=== PATIENT | male | born 1945 | race African-American/Black ===

== ENCOUNTER → 2016-05-30 | Outpatient (CLI) | payer MEDICARE, OTHER ==
[2014-03-29 11:00] VITALS: BP 113/76
[~2016-05-30] MED LIST: AMLO1TAB14 PO; AMLO5TAB2 PO; ASPI81TA44 PO; DILT180C2 PO; DONE5TAB7 PO; EZET1TAB4 PO; HYDR-2868 PO; HYDR12.53 PO; IBUP-1027 PO; MEMA10TA PO; MULT-246 PO; NAPR220C PO; QUET25TA5 PO
--- NOTE | 2016-05-30 12:09 | RAD ---
Exam performed: CT chest contrast. History: Pneumonia. Poor historian. Date of service: 05/30/16. Comparison: None available Technique: Contiguous helical acquisitions are obtained through the chest without IV contrast. Sagittal and coronal reformatted images are obtained and reviewed. Findings: Structures at the thoracic inlet including both lobes of thyroid gland appear normal. Lack of IV contrast limits evaluation of neck and intrathoracic great vessels, however they appear grossly normal in course and caliber. Ectatic ascending aorta without definite aneurysm. Atheromatous calcification of the aorta and coronary arteries. Heart size is within limits of normal without pericardial effusion. No dominant mediastinal or hilar adenopathy seen. Calcified pretracheal lymph node is identified. Interrogation of lungs demonstrates streaky bibasilar opacities. Small area of ground glass opacity seen in the left lower lobe. No pleural effusion or pneumothorax. Limited evaluation of the upper abdominal structures is unremarkable. Spondylotic changes and multilevel disc degenerative changes are noted. Impression: Streaky bibasilar opacities with an area of groundglass opacity in the left lower lobe likely early infiltrates. PQRS Compliance Statement: One or more of the following individualized dose reduction techniques were utilized for this examination: 1. Automated exposure control 2. Adjustment of the mA and/or kV according to patient size 3. Use of iterative reconstruction technique
== END | disposition home or self-care (01) ==
LOC: CT 10:24
PROVIDERS: ATTEND Internal Medicine
DX: J18.9 Pneumonia, unspecified organism (principal)
CPT/HCPCS: 71250

== ENCOUNTER 2016-06-06 13:07 | Inpatient (IN) | payer MEDICARE, OTHER ==
[~2016-06-06] VITALS: Ht 154.9 cm; Wt 41.3 kg
[2016-06-06 16:20] VITALS: BP 104/74
[2016-06-06] MEDS ORDERED: ATOR10TA PO (17:13)
[2016-06-06] MEDS ORDERED: DIVA250T4 PO (17:13)
[2016-06-06] MEDS ORDERED: MEMA28CA PO (17:13)
[2016-06-06] MEDS ORDERED: DONE10TA34 PO (17:13)
[2016-06-06] MEDS ORDERED: DIVA500T2 PO (17:13)
[2016-06-06] MEDS ORDERED: CLON0.1T PO (17:15)
[2016-06-06] MEDS ORDERED: MAGN400O4 PO (17:15)
[2016-06-06] MEDS ORDERED: CHLO1LIQ MC (17:15)
[2016-06-06] MEDS ORDERED: ACET325T21 PO (17:15)
[2016-06-06] MEDS ORDERED: INFLUENZA VAX SCREEN BY RX. MC ONE (17:30)
[2016-06-06 19:35] VITALS: BP 114/76
[2016-06-06 23:37] VITALS: BP 121/82
[2016-06-07 03:31] VITALS: BP 116/72
[2016-06-07 07:56] VITALS: BP 124/87
[2016-06-07] MEDS: IV NORMAL SALINE 1000ML BAG 1,000 ML IV SCH ×2 (09:40→21:35)
[2016-06-07] MEDS: IPRATRPIUM/ALBUTEROL 0.5/2.5MG 3 ML NEBU. NEB SCH ×4 (09:45→19:38)
--- NOTE | 2016-06-07 09:53 | PDOC ---
Provider Note Provider Note Pt seen .H&P dictated. #[id number] MARILU OGMEZ MD Jun 07, 2016 09:53
[2016-06-07] MEDS ORDERED: PIPERACILLIN/TAZOBACTAM 2.25 GM in IV NORMAL SALINE 50ML 50 ML IV SCH (10:00)
--- NOTE | 2016-06-07 10:14 | EKG ---
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
--- NOTE | 2016-06-07 10:17 | HP ---
ADMIT DATE: 06/06/2016 PATIENT LOCATION: 65 REASON FOR ADMISSION TO THE HOSPITAL: Healthcare-associated pneumonia. HISTORY OF PRESENT ILLNESS: The patient is a 71-year-old male patient who has a history of schizophrenia, has been in the [place] [facility]. Lately has been declining. He had a fever with infiltrates in the lung, was treated with 2 courses of antibiotic, first with Levaquin, second with doxycycline in the last one month. In spite of that patient has been declining, has been in bed and not eating, not improving and patient was finally admitted to the hospital for further investigation and treatment. CT scan of the chest done shows bilateral lung infiltrates, could be silent aspiration, could be BOOP, the patient was admitted for further investigation and treatment. PAST MEDICAL HISTORY: The patient was admitted in Mar 2014 history of dementia, alcohol-induced schizophrenia, arthritis, hypertension, hyperlipidemia, COPD, he also had history of dysphagia in the past, was seen by speech. PAST SURGICAL HISTORY: Tracheostomy, tube feeding in the past which was removed. tracheostomy was removed too. ALLERGIES: No known drug allergies. MEDICATIONS AT HOME: The patient is on Namenda, Lipitor, Seroquel, Aricept, diltiazem aspirin, amlodipine, ibuprofen. SOCIAL HISTORY: History of heavy smoker in the past, heavy drinker in the past, has been declining, losing weight, developed skin breakdown and has been ambulating with a walker couple of months ago, but is bedridden now in wheelchair level. FAMILY HISTORY: Unremarkable. REVIEW OF SYMPTOMS: As mentioned declining, was treated with 2 courses of antibiotics for pneumonia without much improvement and was admitted for investigation. PHYSICAL EXAMINATION: GENERAL: Looks older than his age. VITAL SIGNS: Temperature 97, pulse 116, respirations 18, blood pressure 104/74, 98% on room air. HEENT: Head is atraumatic. Pupils equal. Oral cavity, few teeth present. NECK: Supple. Scar of previous tracheostomy, which is closed. CARDIOVASCULAR: S1, S2. LUNGS: Diminished breath sounds, few crackles at the bases. ABDOMEN: Soft, wasting of the muscles, had an old scar of PEG tube, which was removed. EXTERNAL GENITALIA: No Mcelroy. RECTAL: Deferred. EXTREMITIES: No calf tenderness, no edema. The patient has a skin breakdown over the sacral area with some eschar which is 1 inch in size. NEUROLOGIC: The patient does not talk much. He opens eyes. FINAL IMPRESSION: 1. Healthcare-associated pneumonia. 2. The patient was treated with 2 courses of antibiotics without much improvement. 3. General decline. 4. History of smoking, alcoholism in the past. 5. History of schizophrenia. 6. Alzheimer dementia 7. Protein-calorie malnutrition. 8. Skin breakdown of the sacral area. PLAN: At this time, was admit to the hospital, hydrate with IV fluids. Blood cultures and sputum cultures, IV antibiotics, vancomycin and Zosyn. The patient had a CT of the chest couple of days ago, will have pulmonary consult. We will discuss and see how the patient's condition improves. Prognosis is guarded. MARILU GOMEZ MD DR: JIMMY/nts JOB#: [id number] / [id number] [facility] MARILU GOMEZ MD MTD
[2016-06-07] MEDS: POTASSIUM CL 20MEQ D5-0.45NACL 1,000 ML IV SCH ×2 (10:25→19:40)
[2016-06-07] MEDS: ENOXAPARIN 40 MG/0.4 ML DISP.SYRIN. SQ SCH (10:26)
[2016-06-07] MEDS ORDERED: VANCOMYCIN 1 GM in IV NORMAL SALINE 250ML 250 ML IV ONE (10:30)
--- NOTE | 2016-06-07 11:15 | RAD ---
Indication difficulty breathing. Evaluate for pneumonia. A single view of the chest was obtained. Comparison is made to an examination 03/27/2014. Heart size is unchanged. Somewhat tortuous thoracic aorta is noted appearing similar. An acute parenchymal infiltrate in either lung is not seen. Significant pleural fluid is not present. There is no pneumothorax. Degenerative changes about the shoulders are noted. Deformities, likely chronic and secondary to old fractures, noted associated with right ribs IMPRESSION: No acute finding apparent in the chest
[2016-06-07 11:16] LABS: INR 1.2 (0.8-1.1); PROTHROMBIN TIME PATIENT 14.7 SEC (11.7-14.0)
[2016-06-07 11:19] VITALS: BP 131/90
--- NOTE | 2016-06-07 14:29 | PDOC ---
Provider Note Provider Note dictated JASON MCMAHAN MD Jun 07, 2016 14:29
[2016-06-07 14:45] VITALS: BP 115/77
--- NOTE | 2016-06-07 16:01 | CONS ---
DATE OF CONSULTATION: 06/07/2016 ATTENDING PHYSICIAN: Dr. Morris. REASON FOR CONSULTATION: Pneumonia. HISTORY OF PRESENT ILLNESS: The patient is a 71-year-old elderly male who has dementia. He does not communicate well. The patient has been hospitalized for pneumonia. I have been asked to see him for further evaluation. I am unable to obtain much history from the patient. I have reviewed patient's charts. The patient has been declining steadily. He has schizophrenia. [facility] However, he has been brought in to the hospital. His CT chest done on 05/30/2016 was reviewed by me. There were very faint basilar ground glass opacities, which may be related to inflammation. Chest x-ray; however, done today does not show any acute infiltrates. He has been started on antibiotics and I have been asked to see him for further evaluation. PAST MEDICAL HISTORY: Significant for history of schizophrenia, dementia, arthritis, hypertension, hyperlipidemia, COPD, and dysphagia. PAST SURGICAL HISTORY: Tracheostomy in the past, tube feeding and tracheostomy was removed in the past. ALLERGIES: None. CURRENT MEDICATIONS: Reviewed as listed in the MRAD. PHYSICAL EXAMINATION: VITAL SIGNS: Stable, afebrile, pulse ox 97% room air. NECK: Supple. LUNGS: Diminished breath sounds. CARDIOVASCULAR: Regular rate and rhythm. ABDOMEN: Soft. EXTREMITIES: With no pitting edema. LABORATORY DATA: Reviewed. White cell count is not available. INR 1.2. IMPRESSION: 1. Mild faint ground glass opacities at the bases may be related to residual pneumonia. There are no definite consolidation seen on the CT and recent chest x-ray is clear. 2. Schizophrenia with declining functional status. 3. Protein-calorie malnutrition. 4. Dementia. RECOMMENDATIONS: 1. Deescalate antibiotics soon. 2. Discussed advanced directives. 3. Nutritional status needs to be addressed. 4. P.r.n. bronchodilators. 5. We will follow as needed. JASON MCMAHAN MD DR: ALY/guera JOB#: [id number] / [id number]
--- NOTE | 2016-06-07 17:00 | PDOC2 ---
PALLIATIVE CARE Palliative Care Note Palliative Care Consult requested by Dr. Morris to address goals of care Diagnosis; Healthcare-associated pneumonia.; schizophrenia, dementia, p/c malnutrition; skin breakdown, decline. Patient does not make his own decisions. Has never been or have children. Spoke with Jackelyn Sanchez, niece. She requested to speak to his sister Carina at [phone]. Meeting planned tomorrow at 1300 to discuss goals of care. REINALDO SONI Jun 07, 2016 17:00
[2016-06-07 17:17] LABS: CALCIUM 8.7 mg/dL (8.5-10.1); CREATININE 1.1 mg/dL (0.7-1.3); GFR 79.8; POTASSIUM 4.2 mmol/L (3.5-5.1)
[2016-06-07 17:25] LABS: ALBUMIN 2.1 g/dL (3.4-5.0); ALBUMIN/GLOBULIN RATIO 0.5 (1.0-1.7); TOTAL BILIRUBIN 0.5 mg/dL (0.2-1.0); TOTAL PROTEIN 6.2 g/dL (6.4-8.2)
[2016-06-07 17:59] LABS: BILIRUBIN,URINE NEGATIVE (NEG); GLUCOSE,URINE NEGATIVE (NEG); NITRITE,URINE NEGATIVE (NEG); PH,URINE 7.5; PROTEIN,URINE NEGATIVE (NEG-TRACE)
[2016-06-07 18:10] LABS: BACTERIA,URINE 0 /HPF (0-FEW); RBC,URINE 0 /HPF (0-2); SQUAMOUS EPITHELIAL CELL,UR OCC /LPF
[2016-06-07] MEDS: PIPERACILLIN/TAZOBACTAM 3.375 GM in IV NORMAL SALINE 50ML 50 ML IV SCH ×2 (19:26→23:46)
[2016-06-07 20:26] VITALS: BP 119/79
[2016-06-07 23:37] VITALS: BP 121/73
[2016-06-08 03:23] VITALS: BP 122/72
[2016-06-08] MEDS: POTASSIUM CL 20MEQ D5-0.45NACL 1,000 ML IV SCH (05:40)
[2016-06-08] MEDS: PIPERACILLIN/TAZOBACTAM 3.375 GM in IV NORMAL SALINE 50ML 50 ML IV SCH ×3 (05:47→17:57)
[2016-06-08 06:10] LABS: BASO % 0 % (0-3); EOS % 1 % (0-3); HEMOGLOBIN 9.5 g/dL (13.0-17.5); LYMPH # 1.1 x10^3/uL (1.0-4.8); LYMPH % 20 % (24-48); MEAN CORPUSCULAR HEMOGLOBIN 29 pg (25-35); MEAN CORPUSCULAR HGB CONC 33 g/dL (31-37); MEAN CORPUSCULAR VOLUME 90 fL (79-100); MONO % 9 % (0-9); NEUT % 69 % (31-73); PLATELET COUNT 94 x10^3/uL (140-400); RED BLOOD COUNT 3.24 x10^6/uL (4.30-5.70); RED CELL DISTRIBUTION WIDTH 14.5 % (11.5-14.5); WHITE BLOOD COUNT 5.6 x10^3/uL (4.0-11.0)
[2016-06-08 06:13] LABS: CALCIUM 8.2 mg/dL (8.5-10.1); CREATININE 1.2 mg/dL (0.7-1.3); GFR 72.2; POTASSIUM 4.1 mmol/L (3.5-5.1)
[2016-06-08] MEDS: IPRATRPIUM/ALBUTEROL 0.5/2.5MG 3 ML NEBU. NEB SCH ×4 (07:28→21:28)
[2016-06-08 07:36] VITALS: BP 133/65
[2016-06-08] MEDS ORDERED: FLU VACC QUAD 2016-17 (36MOS+)/PF 0.5 ML SYRINGE. VAX IM ONE (09:00)
--- NOTE | 2016-06-08 09:00 | PDOC ---
PULMONARY PROGRESS NOTES Subjective no soa Vitals Vital Signs Date Time Temp Pulse Resp B/P Pulse Ox O2 Delivery O2 Flow Rate FiO2 06/08/16 07:36 97.5 59 20 133/65 99 Room Air 97.5 General: Alert Lungs: Clear Cardiovascular: S1 Abdomen: Soft Neuro Exam: Alert Extremities: No Edema Skin: Warm Labs Laboratory Tests Test 06/06/16 16:30 06/07/16 10:50 06/07/16 17:50 06/08/16 05:40 Nasal Screen MRSA (PCR) Negative (Negative) Prothrombin Time 14.7SEC (11.7-14.0) Prothromb Time International Ratio 1.2 (0.8-1.1) Sodium Level 147mmol/L (136-145) 148mmol/L (136-145) Potassium Level 4.2mmol/L (3.5-5.1) 4.1mmol/L (3.5-5.1) Chloride Level 111mmol/L (98-107) 116mmol/L (98-107) Carbon Dioxide Level 28mmol/L (21-32) 27mmol/L (21-32) Anion Gap 8 (6-14) 5 (6-14) Blood Urea Nitrogen 17mg/dL (8-26) 20mg/dL (8-26) Creatinine 1.1mg/dL (0.7-1.3) 1.2mg/dL (0.7-1.3) Estimated GFR (Cockcroft-Gault) 79.8 72.2 BUN/Creatinine Ratio 15 (6-20) Glucose Level 77mg/dL (70-99) 89mg/dL (70-99) Calcium Level 8.7mg/dL (8.5-10.1) 8.2mg/dL (8.5-10.1) Total Bilirubin 0.5mg/dL (0.2-1.0) Aspartate Amino Transf (AST/SGOT) 27U/L (15-37) Alanine Aminotransferase (ALT/SGPT) 37U/L (16-63) Alkaline Phosphatase 62U/L (46-116) Total Protein 6.2g/dL (6.4-8.2) Albumin 2.1g/dL (3.4-5.0) Albumin/Globulin Ratio 0.5 (1.0-1.7) Urine Color Yellow Urine Clarity Clear Urine pH 7.5 Urine Specific [place] 1.015 Urine Protein Negativemg/dL (NEG-TRACE) Urine Glucose (UA) Negativemg/dL (NEG) Urine Ketones (Stick) Negativemg/dL (NEG) Urine Blood Negative (NEG) Urine Nitrite Negative (NEG) Urine Bilirubin Negative (NEG) Urine Urobilinogen Dipstick 1.0mg/dL (0.2 mg/dL) Urine Leukocyte Esterase Moderate (NEG) Urine RBC 0/HPF (0-2) Urine WBC 5-10/HPF (0-4) Urine Squamous Epithelial Cells Occ/LPF Urine Amorphous Sediment Present/HPF Urine Bacteria 0/HPF (0-FEW) Urine Mucus Slight/LPF White Blood Count 5.6x10^3/uL (4.0-11.0) Red Blood Count 3.24x10^6/uL (4.30-5.70) Hemoglobin 9.5g/dL (13.0-17.5) Hematocrit 29.0% (39.0-53.0) Mean Corpuscular Volume 90fL (79-100) Mean Corpuscular Hemoglobin 29pg (25-35) Mean Corpuscular Hemoglobin Concent 33g/dL (31-37) Red Cell Distribution Width 14.5% (11.5-14.5) Platelet Count 94x10^3/uL (140-400) Neutrophils (%) (Auto) 69% (31-73) Lymphocytes (%) (Auto) 20% (24-48) Monocytes (%) (Auto) 9% (0-9) Eosinophils (%) (Auto) 1% (0-3) Basophils (%) (Auto) 0% (0-3) Neutrophils # (Auto) 3.8x10^3uL (1.8-7.7) Lymphocytes # (Auto) 1.1x10^3/uL (1.0-4.8) Monocytes # (Auto) 0.5x10^3/uL (0.0-1.1) Eosinophils # (Auto) 0.1x10^3/uL (0.0-0.7) Basophils # (Auto) 0.0x10^3/uL (0.0-0.2) Thyroid Stimulating Hormone (TSH) 1.631uIU/mL (0.358-3.74) Laboratory Tests Test 06/07/16 10:50 06/07/16 17:50 06/08/16 05:40 Prothrombin Time 14.7SEC (11.7-14.0) Prothromb Time International Ratio 1.2 (0.8-1.1) Sodium Level 147mmol/L (136-145) 148mmol/L (136-145) Potassium Level 4.2mmol/L (3.5-5.1) 4.1mmol/L (3.5-5.1) Chloride Level 111mmol/L (98-107) 116mmol/L (98-107) Carbon Dioxide Level 28mmol/L (21-32) 27mmol/L (21-32) Anion Gap 8 (6-14) 5 (6-14) Blood Urea Nitrogen 17mg/dL (8-26) 20mg/dL (8-26) Creatinine 1.1mg/dL (0.7-1.3) 1.2mg/dL (0.7-1.3) Estimated GFR (Cockcroft-Gault) 79.8 72.2 BUN/Creatinine Ratio 15 (6-20) Glucose Level 77mg/dL (70-99) 89mg/dL (70-99) Calcium Level 8.7mg/dL (8.5-10.1) 8.2mg/dL (8.5-10.1) Total Bilirubin 0.5mg/dL (0.2-1.0) Aspartate Amino Transf (AST/SGOT) 27U/L (15-37) Alanine Aminotransferase (ALT/SGPT) 37U/L (16-63) Alkaline Phosphatase 62U/L (46-116) Total Protein 6.2g/dL (6.4-8.2) Albumin 2.1g/dL (3.4-5.0) Albumin/Globulin Ratio 0.5 (1.0-1.7) Urine Color Yellow Urine Clarity Clear Urine pH 7.5 Urine Specific [place] 1.015 Urine Protein Negativemg/dL (NEG-TRACE) Urine Glucose (UA) Negativemg/dL (NEG) Urine Ketones (Stick) Negativemg/dL (NEG) Urine Blood Negative (NEG) Urine Nitrite Negative (NEG) Urine Bilirubin Negative (NEG) Urine Urobilinogen Dipstick 1.0mg/dL (0.2 mg/dL) Urine Leukocyte Esterase Moderate (NEG) Urine RBC 0/HPF (0-2) Urine WBC 5-10/HPF (0-4) Urine Squamous Epithelial Cells Occ/LPF Urine Amorphous Sediment Present/HPF Urine Bacteria 0/HPF (0-FEW) Urine Mucus Slight/LPF White Blood Count 5.6x10^3/uL (4.0-11.0) Red Blood Count 3.24x10^6/uL (4.30-5.70) Hemoglobin 9.5g/dL (13.0-17.5) Hematocrit 29.0% (39.0-53.0) Mean Corpuscular Volume 90fL (79-100) Mean Corpuscular Hemoglobin 29pg (25-35) Mean Corpuscular Hemoglobin Concent 33g/dL (31-37) Red Cell Distribution Width 14.5% (11.5-14.5) Platelet Count 94x10^3/uL (140-400) Neutrophils (%) (Auto) 69% (31-73) Lymphocytes (%) (Auto) 20% (24-48) Monocytes (%) (Auto) 9% (0-9) Eosinophils (%) (Auto) 1% (0-3) Basophils (%) (Auto) 0% (0-3) Neutrophils # (Auto) 3.8x10^3uL (1.8-7.7) Lymphocytes # (Auto) 1.1x10^3/uL (1.0-4.8) Monocytes # (Auto) 0.5x10^3/uL (0.0-1.1) Eosinophils # (Auto) 0.1x10^3/uL (0.0-0.7) Basophils # (Auto) 0.0x10^3/uL (0.0-0.2) Thyroid Stimulating Hormone (TSH) 1.631uIU/mL (0.358-3.74) Medications Active Scripts Medications Dose Route/Sig Days Date Category Chlorhexidine Flavor (Chlorhexidine) 1 Ml Liquid 1 Ml 06/06/16 Reported Milk Of Magnesia (Magnesium Hydroxide) 400 Mg/5 Ml Oral.susp 800 Mg PO PRN PRN 06/06/16 Reported Acetaminophen 325 Mg Tablet 650 Mg PO PRN Q6HRS PRN 06/06/16 Reported Clonidine Hcl 0.1 Mg Tablet 0.1 Mg PO DAILY 06/06/16 Reported Depakote (Divalproex Sodium) 250 Mg Tablet.dr 250 Mg PO QHS 06/06/16 Reported Depakote (Divalproex Sodium) 500 Mg Tablet.dr 500 Mg PO DAILY 06/06/16 Reported Aricept (Donepezil Hcl) 10 Mg Tablet 1 Tab PO DAILY 06/06/16 Reported Namenda Xr (Memantine Hcl) 28 Mg Cap.spr.24 28 Mg PO DAILY 06/06/16 Reported Lipitor (Atorvastatin Calcium) 10 Mg Tablet 1 Tab PO QHS 06/06/16 Reported Children's Aspirin (Aspirin) 81 Mg Tab.chew 81 Mg PO DAILY 09/11/13 Reported Multi-Vitamin Daily (Multivitamin) 1 Each Tablet 1 Each PO DAILY 09/11/13 Reported Impression . 1. Mild faint ground glass opacities at the bases may be related to residual pneumonia. There are no definite consolidation seen on the CT and recent chest x-ray is clear. 2. Schizophrenia with declining functional status. 3. Protein-calorie malnutrition. 4. Dementia. Plan . 1. Deescalate antibiotics soon. 2. Discuss advanced directives./ palliative care consulted 3. Nutritional status needs to be addressed. 4. P.r.n. bronchodilators. 5. d/w Dr Morris will see JASON Cooper MD Jun 08, 2016 08:59
[2016-06-08] MEDS ORDERED: BARIUM SULFATE 40% 148 GM PWD PO ONE (09:45)
--- NOTE | 2016-06-08 10:00 | PDOC ---
PROGRESS NOTES Subjective Subjective sleepy this am Objective Objective Vital Signs Date Time Temp Pulse Resp B/P Pulse Ox O2 Delivery O2 Flow Rate FiO2 06/08/16 07:36 97.5 59 20 133/65 99 Room Air 97.5 Intake and Output 06/08/16 07:00 Intake Total 0 ml Balance 0 ml Intake Oral 0 ml # Voids 4 Physical Exam Abdomen: Normal bowel sounds, Soft Heart: Regular rate, Normal S1, Normal S2 General: No acute distress Lungs: Normal air movement MUSCULOSKELETAL: No deformity, Other Neck: Supple Skin: Other (wounds stage 3 sacral area) Diagnosis Problem List Problems Medical Problems: (1) HCAP (healthcare-associated pneumonia) Status: Acute Assessment Assessment Problems Medical Problems: (1) HCAP (healthcare-associated pneumonia) Status: Acute FINAL IMPRESSION: 1. Healthcare-associated pneumonia. 2. The patient was treated with 2 courses of antibiotics without much improvement. 3. General decline. 4. History of smoking, alcoholism in the past. 5. History of schizophrenia. 6. Alzheimer dementia 7. Protein-calorie malnutrition. 8. Skin breakdown of the sacral area. PLAN: spoke with dr Tello , pulmonary . speech consulted for swallowing going for swallow study today palliative team consult, meeting today. labs noted. At this time, was admit to the hospital, hydrate with IV fluids. Blood cultures and sputum cultures, IV antibiotics, vancomycin and Zosyn. The patient had a CT of the chest couple of days ago, will have pulmonary consult. We will discuss and see how the patient's condition improves. Prognosis is guarded. Problems: Plan Plan of Care Problems Medical Problems: (1) HCAP (healthcare-associated pneumonia) Status: Acute Comment Review of Relevant I have reviewed the following items grisel (where applicable) has been applied. Labs Laboratory Tests Test 06/07/16 10:50 06/07/16 17:50 06/08/16 05:40 Prothrombin Time 14.7SEC (11.7-14.0) Prothromb Time International Ratio 1.2 (0.8-1.1) Sodium Level 147mmol/L (136-145) 148mmol/L (136-145) Potassium Level 4.2mmol/L (3.5-5.1) 4.1mmol/L (3.5-5.1) Chloride Level 111mmol/L (98-107) 116mmol/L (98-107) Carbon Dioxide Level 28mmol/L (21-32) 27mmol/L (21-32) Anion Gap 8 (6-14) 5 (6-14) Blood Urea Nitrogen 17mg/dL (8-26) 20mg/dL (8-26) Creatinine 1.1mg/dL (0.7-1.3) 1.2mg/dL (0.7-1.3) Estimated GFR (Cockcroft-Gault) 79.8 72.2 BUN/Creatinine Ratio 15 (6-20) Glucose Level 77mg/dL (70-99) 89mg/dL (70-99) Calcium Level 8.7mg/dL (8.5-10.1) 8.2mg/dL (8.5-10.1) Total Bilirubin 0.5mg/dL (0.2-1.0) Aspartate Amino Transf (AST/SGOT) 27U/L (15-37) Alanine Aminotransferase (ALT/SGPT) 37U/L (16-63) Alkaline Phosphatase 62U/L (46-116) Total Protein 6.2g/dL (6.4-8.2) Albumin 2.1g/dL (3.4-5.0) Albumin/Globulin Ratio 0.5 (1.0-1.7) Urine Color Yellow Urine Clarity Clear Urine pH 7.5 Urine Specific [place] 1.015 Urine Protein Negativemg/dL (NEG-TRACE) Urine Glucose (UA) Negativemg/dL (NEG) Urine Ketones (Stick) Negativemg/dL (NEG) Urine Blood Negative (NEG) Urine Nitrite Negative (NEG) Urine Bilirubin Negative (NEG) Urine Urobilinogen Dipstick 1.0mg/dL (0.2 mg/dL) Urine Leukocyte Esterase Moderate (NEG) Urine RBC 0/HPF (0-2) Urine WBC 5-10/HPF (0-4) Urine Squamous Epithelial Cells Occ/LPF Urine Amorphous Sediment Present/HPF Urine Bacteria 0/HPF (0-FEW) Urine Mucus Slight/LPF White Blood Count 5.6x10^3/uL (4.0-11.0) Red Blood Count 3.24x10^6/uL (4.30-5.70) Hemoglobin 9.5g/dL (13.0-17.5) Hematocrit 29.0% (39.0-53.0) Mean Corpuscular Volume 90fL (79-100) Mean Corpuscular Hemoglobin 29pg (25-35) Mean Corpuscular Hemoglobin Concent 33g/dL (31-37) Red Cell Distribution Width 14.5% (11.5-14.5) Platelet Count 94x10^3/uL (140-400) Neutrophils (%) (Auto) 69% (31-73) Lymphocytes (%) (Auto) 20% (24-48) Monocytes (%) (Auto) 9% (0-9) Eosinophils (%) (Auto) 1% (0-3) Basophils (%) (Auto) 0% (0-3) Neutrophils # (Auto) 3.8x10^3uL (1.8-7.7) Lymphocytes # (Auto) 1.1x10^3/uL (1.0-4.8) Monocytes # (Auto) 0.5x10^3/uL (0.0-1.1) Eosinophils # (Auto) 0.1x10^3/uL (0.0-0.7) Basophils # (Auto) 0.0x10^3/uL (0.0-0.2) Thyroid Stimulating Hormone (TSH) 1.631uIU/mL (0.358-3.74) Medications Current Medications Barium Sulfate (Varibar Thin Liquid) 148 gm 1X ONCE PO ; Start 06/08/16 at 09:45 ; Stop 06/08/16 at 09:46; Status DC Enoxaparin Sodium 40 mg 40 mg Q24H SQ Last administered on 06/07/16 10:26; Start 06/07/16 at 10:00 Influenza Virus Vaccine Quadrival 0.5 ml 0.5 ml ONCE ONCE VAX IM ; Start at 09:00; Stop 06/08/16 at 09:01; Status DC Piperacillin Sod/ Tazobactam Sod 3.375 gm/Sodium Chloride 50 ml @ 100 mls/hr Q6HRS IV Last administered on 06/08/16 05:47; Start 06/07/16 at 18:00 Piperacillin Sod/ Tazobactam Sod/ Sodium Chloride (Zosyn/Iv Sodium Chloride 0.9 % 50ml) 50 ml @ 100 mls/hr Q6HRS IV Last administered on 06/07/16 10:41; Start 06/07/16 at 10:00; Stop 06/07/16 at 17:44; Status DC Sodium Chloride (Iv Sodium Chloride 0.9% 1000ml Bag) 1,000 ml @ 100 mls/hr Q10H IV ; Start 06/08/16 at 07:00 Vancomycin HCl 1 gm/Sodium Chloride 250 ml @ 166.667 mls/hr 1X ONCE IV Last administered on 06/07/16 13:33; Start 06/07/16 at 10:30; Stop 06/07/16 at 11:59; Status DC Vitals/I & O Vital Sign - Last 24 Hours 06/07/16 06/07/16 06/07/16 06/07/16 11:00 11:19 11:32 14:34 Temp 97.9 97.9 Pulse 56 Resp 18 B/P 131/90 Pulse Ox 97 100 O2 Delivery Room Air Room Air Room Air Room Air 06/07/16 06/07/16 06/07/16 06/07/16 14:45 15:52 19:38 20:00 Temp 97.9 97.9 Pulse 76 Resp 18 B/P 115/77 Pulse Ox 99 O2 Delivery Room Air Room Air Room Air Room Air 06/07/16 06/07/16 06/08/16 06/08/16 20:26 23:37 03:23 07:29 Temp 97.9 98.2 97.7 97.9 98.2 97.7 Pulse 79 76 71 Resp 20 20 20 B/P 119/79 121/73 122/72 Pulse Ox 98 100 99 100 O2 Delivery Room Air Room Air Room Air Room Air 06/08/16 07:36 Temp 97.5 97.5 Pulse 59 Resp 20 B/P 133/65 Pulse Ox 99 O2 Delivery Room Air Intake and Output 06/07/16 06/07/16 06/08/16 15:00 23:00 07:00 Intake Total 0 ml 0 ml Balance 0 ml 0 ml MARILU GOMEZ MD Jun 08, 2016 10:00
[2016-06-08 11:58] VITALS: BP 129/70
[2016-06-08] MEDS: IV NORMAL SALINE 1000ML BAG 1,000 ML IV SCH ×2 (12:10→17:56)
[2016-06-08] MEDS: ENOXAPARIN 40 MG/0.4 ML DISP.SYRIN. SQ SCH (12:13)
--- NOTE | 2016-06-08 13:58 | RAD ---
Indication signs and symptoms of aspiration. With a member of the Department of speech pathology swallowing was evaluated. No spot images were obtained. Fluoroscopy time associated with the examination was 1.3 minutes There was some delay in the oral phase of swallowing but apart from that the examination was essentially unremarkable. No significant flash penetration was seen. There was no significant residual and no aspiration was seen. See speech pathology notes for additional details. IMPRESSION: Essentially unremarkable swallowing
--- NOTE | 2016-06-08 14:40 | PDOC2 ---
PALLIATIVE CARE Palliative Care Note Palliative Care Patient more alert today. Saying few words Met with his sister Carina.([phone]) patient has 2 brothers and 2 sisters. Reviewed medical condition. pneumonia, general decline, dysphagia, skin breakdown Carina shared her concern for progressive decline. Discussed Code Status; Requests DNR/DNI Understands that without this attempt he likely would . Discussed options for care. She would like foods that are safest consistency for him to eat. No feeding tube Discussed Hospice. She has no preference. SW will assist in arrangements. Rosangela; Has never attended [facility] Work: Many jobs but had difficulty maintaining employment because of alcohol consumption. Plan: Detention with Hospice. Dysphagia Diet I with Honey Thickened Liquids per speech rec. DNR/DNI Outside the Hospital form completed. REINALDO SONI Jun 08, 2016 14:40
[2016-06-08 14:58] VITALS: BP 120/75
[2016-06-08 19:20] VITALS: BP 123/73
[2016-06-08 23:31] VITALS: BP 117/75
[2016-06-09] MEDS: PIPERACILLIN/TAZOBACTAM 3.375 GM in IV NORMAL SALINE 50ML 50 ML IV SCH ×2 (00:03→04:57)
[2016-06-09 03:20] VITALS: BP 148/79
[2016-06-09] MEDS: IV NORMAL SALINE 1000ML BAG 1,000 ML IV SCH (04:57)
[2016-06-09 07:00] VITALS: BP 160/67
[2016-06-09] MEDS: IPRATRPIUM/ALBUTEROL 0.5/2.5MG 3 ML NEBU. NEB SCH ×3 (07:43→15:57)
[2016-06-09] MEDS: ENOXAPARIN 40 MG/0.4 ML DISP.SYRIN. SQ SCH (09:21)
--- NOTE | 2016-06-09 09:44 | PDOC ---
PROGRESS NOTES Subjective Subjective no complaints, more awake today Objective Objective Vital Signs Date Time Temp Pulse Resp B/P Pulse Ox O2 Delivery O2 Flow Rate FiO2 06/09/16 07:43 99 Room Air 06/09/16 07:00 97.7 99 18 160/67 97.7 Intake and Output 06/09/16 07:00 Intake Total 0 ml Balance 0 ml Intake Oral 0 ml # Voids 8 Physical Exam Abdomen: Normal bowel sounds, Soft Heart: Regular rate, Normal S1, Normal S2 General: No acute distress Lungs: Normal air movement MUSCULOSKELETAL: No deformity, Other Neck: Supple Skin: Other (wounds stage 3 sacral area) Diagnosis Problem List Problems Medical Problems: (1) HCAP (healthcare-associated pneumonia) Status: Acute Assessment Assessment Problems Medical Problems: (1) HCAP (healthcare-associated pneumonia) Status: Acute FINAL IMPRESSION: 1. Healthcare-associated pneumonia.chronic scaring in lungs 2. The patient was treated with 2 courses of antibiotics without much improvement. 3. General decline. 4. History of smoking, alcoholism in the past. 5. History of schizophrenia. 6. Alzheimer dementia 7. Protein-calorie malnutrition. 8. Skin breakdown of the sacral area. PLAN: appreciate palliative consult. DNR, d/c back to [facility] with hospice. swallow study , no vinicio aspiration. dysphagia 1 diet with honey thickened . no feeding tube. poor prognosis. spoke with dr Tello , pulmonary , no need to continue antibiotics. speech consulted for swallowing going for swallow study today palliative team consult, meeting today. labs noted. Problems: Plan Plan of Care Problems Medical Problems: (1) HCAP (healthcare-associated pneumonia) Status: Acute Comment Review of Relevant I have reviewed the following items girsel (where applicable) has been applied. Labs Microbiology 06/07/16 Blood Culture - Preliminary, Resulted NO GROWTH AFTER 1 DAY 06/07/16 Urine Culture - Preliminary, Resulted 06/07/16 Urine Culture Result 1 (NUZHAT) - Preliminary, Resulted Medications Current Medications Barium Sulfate (Varibar Thin Liquid) 148 gm 1X ONCE PO Last administered on t 09:45; Start 06/08/16 at 09:45; Stop 06/08/16 at 09:46; Status DC Vitals/I & O Vital Sign - Last 24 Hours 06/08/16 06/08/16 06/08/16 06/08/16 11:09 11:58 14:58 17:01 Temp 97.9 97.5 97.9 97.5 Pulse 62 61 Resp 20 20 B/P 129/70 120/75 Pulse Ox 100 99 O2 Delivery Room Air Room Air Room Air Room Air 06/08/16 06/08/16 06/08/16 06/08/16 19:20 20:00 21:27 23:31 Temp 97.9 97.9 97.9 97.9 Pulse 75 68 Resp 20 20 B/P 123/73 117/75 Pulse Ox 99 99 99 O2 Delivery Room Air Room Air Room Air Room Air 06/09/16 06/09/16 06/09/16 03:20 07:00 07:43 Temp 97.7 97.7 97.7 97.7 Pulse 58 99 Resp 20 18 B/P 148/79 160/67 Pulse Ox 100 99 99 O2 Delivery Room Air Room Air Room Air Intake and Output 06/08/16 06/08/16 06/09/16 15:00 23:00 07:00 Intake Total 0 ml Balance 0 ml MARILU GOMEZ MD Jun 09, 2016 09:44
[2016-06-09 11:00] VITALS: BP 163/74
[2016-06-09 15:00] VITALS: BP 167/80
== END 2016-06-09 16:15 | DRG 177 ==
LOC: 6 SOUTH 15:43
PROVIDERS: ADMIT Internal Medicine; ATTEND Internal Medicine
DX: J69.0 Pneumonitis due to inhalation of food and vomit (principal); E43 Unspecified severe protein-calorie malnutrition; J44.0 Chronic obstructive pulmonary disease with (acute) lower respiratory infection; Z68.1 Body mass index [BMI] 19.9 or less, adult; E78.5 Hyperlipidemia, unspecified; Z51.5 Encounter for palliative care; Z66 Do not resuscitate; R53.81 Other malaise; F02.80 Dementia in other diseases classified elsewhere, unspecified severity, without behavioral disturbance, psychotic disturbance, mood disturbance, and anxiety; G30.9 Alzheimer's disease, unspecified; I10 Essential (primary) hypertension; F20.9 Schizophrenia, unspecified; F10.20 Alcohol dependence, uncomplicated; M19.90 Unspecified osteoarthritis, unspecified site; R13.10 Dysphagia, unspecified; Y95 Nosocomial condition; Z87.891 Personal history of nicotine dependence; Z93.0 Tracheostomy status
CPT/HCPCS: 36415; 71010; 74230; 80048; 80053; 81001; 84443; 85027; 85610; 87040; 87086; 87641; 90686; 93005; 94640; 94760; J1650; J2543; J3370; J7030; J7050; J7620; 92610; 92611

== ENCOUNTER 2017-12-28 22:49 | Inpatient (IN) | payer MEDICARE, OTHER ==
[~2017-12-28] VITALS: Ht 170.2 cm; Wt 57.2 kg
[~2017-12-28 22:49] MED LIST changes: +ACET325T21 PO; -AMLO5TAB2 PO; +AMLO5TAB7 PO; -ASPI81TA44 PO; +ASPI81TA59 PO; +ATOR10TA PO; +CHLO1LIQ MC; +CLON0.1T PO; +DIVA250T4 PO; +DIVA500T2 PO; +DONE10TA61 PO; +EZET1TAB30 PO; -EZET1TAB4 PO; +MAGN400O7 PO; +MEMA28CA PO
--- NOTE | 2017-12-28 23:09 | PHYS DOC ---
Past Medical History Past Medical History: Arthritis, Dementia, High Cholesterol, Hypertension, Other Additional Past Medical Histor: weakness Past Surgical History: Other Additional Past Surgical Histo: feeding tube reversed pe family Alcohol Use: None Drug Use: None Adult General HPI HPI Patient is a 72-year-old [place] male who arrives in the emergency department via EMS from his nursing facility, secondary to a low-grade temperature and tachycardia which was noticed today. He has a history of dementia and his mental status is at his baseline. The patient denies any pain. He denies any headache, chest pain, cough, abdominal pain, and had been no reports of nausea and vomiting. There have been no reports of altered mental status. He is oriented to person only, which reportedly is his baseline. There are no alleviating or exacerbating factors to his symptoms. Review of Systems Review of Systems Constitutional: Reports fevers, fevers reported. Eyes: Denies change in visual acuity, redness, or eye pain [] HENT: Denies nasal congestion or sore throat [] Respiratory: Denies cough or shortness of breath [] Cardiovascular: The patient denies any shortness of breath, chest pain, palpitations, or orthopnea [] GI: Denies abdominal pain, nausea, vomiting, bloody stools or diarrhea [] : Denies dysuria or hematuria [] Musculoskeletal: Denies back pain or joint pain [] Integument: Denies rash or skin lesions [] Neurologic: Denies headache, focal weakness or sensory changes [] Endocrine: Denies polyuria or polydipsia [] All other systems were reviewed and found to be within normal limits, except as documented in this note, Although the history is somewhat limited secondary to patient's underlying dementia. Current Medications Current Medications Current Medications Medications (Trade) Dose Ordered Sig/Renata Start Time Stop Time Status Last Admin Dose Admin Acetaminophen (Tylenol) 1,000 mg 1X ONCE 12/28/17 23:30 12/28/17 23:31 DC 12/29/17 00:23 1,000 MG Ceftriaxone Sodium 50 ml @ 100 mls/hr 1X ONCE 12/28/17 23:30 12/28/17 23:59 DC 12/28/17 23:30 100 MLS/HR Sodium Chloride 1,000 ml @ 1,000 mls/hr 1X ONCE 12/29/17 00:30 12/29/17 01:29 UNV Allergies Allergies Allergies Coded Allergies Type Severity Reaction Last Updated Verified No Known Drug Allergies 09/10/13 No Physical Exam Physical Exam PHYSICAL EXAM: CONSTITUTIONAL: Well developed, well nourished HEAD: normocephalic, atraumatic EENT: PERRL, EOMI. Conjunctivae normal color, sclerae non-icteric; moist mucous membranes. NECK: Supple, non-tender; no meningismus. LUNGS: Lungs CTA, breathing even and unlabored. Normal air movement. HEART: Regular tachycardia, no murmur CHEST: No deformity; non-tender ABDOMEN: The abdomen is soft, and non-tender, no masses or bruits. EXTREM: Normal ROM; no deformity, no calf tenderness. Normal pulses palpable in all extremities. There is no pedal edema. SKIN: No rash; no diaphoresis. The skin of the perineum is intact without any evidence of decubitus ulcers. NEURO: Alert; patient is oriented to person, but disoriented to place and time. He is able to follow commands.; CN's grossly intact; strength grossly intact without focal deficit. BACK: No CVA TTP. Current Patient Data Vital Signs Vital Signs Date Time Temp Pulse Resp B/P (MAP) Pulse Ox O2 Delivery O2 Flow Rate FiO2 12/28/17 23:27 99.1 135 26 167/117 (134) 98 Room Air 99.1 Lab Values Laboratory Tests Test 12/28/17 23:27 12/28/17 23:45 White Blood Count 15.9 x10^3/uL (4.0-11.0) H Red Blood Count 4.81 x10^6/uL (4.30-5.70) Hemoglobin 13.8 g/dL (13.0-17.5) Hematocrit 40.8 % (39.0-53.0) Mean Corpuscular Volume 85 fL (79-100) Mean Corpuscular Hemoglobin 29 pg (25-35) Mean Corpuscular Hemoglobin Concent 34 g/dL (31-37) Red Cell Distribution Width 13.8 % (11.5-14.5) Platelet Count 250 x10^3/uL (140-400) Neutrophils (%) (Auto) 86 % (31-73) H Lymphocytes (%) (Auto) 8 % (24-48) L Monocytes (%) (Auto) 5 % (0-9) Eosinophils (%) (Auto) 1 % (0-3) Basophils (%) (Auto) 1 % (0-3) Neutrophils # (Auto) 13.7 x10^3uL (1.8-7.7) H Lymphocytes # (Auto) 1.3 x10^3/uL (1.0-4.8) Monocytes # (Auto) 0.7 x10^3/uL (0.0-1.1) Eosinophils # (Auto) 0.2 x10^3/uL (0.0-0.7) Basophils # (Auto) 0.1 x10^3/uL (0.0-0.2) Segmented Neutrophils % 83 % (35-66) H Band Neutrophils % 2 % (0-9) Lymphocytes % 9 % (24-48) L Monocytes % 6 % (0-10) Toxic Granulation Slight Platelet Estimate Adequate (ADEQUATE) Sodium Level 138 mmol/L (136-145) Potassium Level 4.0 mmol/L (3.5-5.1) Chloride Level 104 mmol/L (98-107) Carbon Dioxide Level 28 mmol/L (21-32) Anion Gap 6 (6-14) Blood Urea Nitrogen 14 mg/dL (8-26) Creatinine 1.4 mg/dL (0.7-1.3) H Estimated GFR (Cockcroft-Gault) 60.3 BUN/Creatinine Ratio 10 (6-20) Glucose Level 163 mg/dL (70-99) H Lactic Acid Level 3.0 mmol/L (0.4-2.0) H Calcium Level 9.2 mg/dL (8.5-10.1) Magnesium Level 1.8 mg/dL (1.8-2.4) Total Bilirubin 0.3 mg/dL (0.2-1.0) Aspartate Amino Transferase (AST) 19 U/L (15-37) Alanine Aminotransferase (ALT) 23 U/L (16-63) Alkaline Phosphatase 77 U/L (46-116) Creatine Kinase 59 U/L (39-308) Creatine Kinase MB (Mass) < 0.5 ng/mL (0.0-3.6) Creatine Kinase MB Relative Index % (0-4) Troponin I Quantitative < 0.017 ng/mL (0.000-0.055) ON-Iid-B-Type Natriuretic Peptide 339 pg/mL (0-124) H Total Protein 8.0 g/dL (6.4-8.2) Albumin 3.4 g/dL (3.4-5.0) Albumin/Globulin Ratio 0.7 (1.0-1.7) L Lipase 151 U/L (73-393) Thyroid Stimulating Hormone (TSH) 0.647 uIU/mL (0.358-3.74) Free Thyroxine 1.15 ng/dL (0.76-1.46) Valproic Acid Level mcg/mL (50-100) Valproic Acid Last Dose Date Unk Valproic Acid Last Dose Time Unk Urine Collection Type U cath Urine Color Yellow Urine Clarity Cloudy Urine pH 5.5 Urine Specific [place] 1.020 Urine Protein Negative mg/dL (NEG-TRACE) Urine Glucose (UA) Negative mg/dL (NEG) Urine Ketones (Stick) Trace mg/dL (NEG) Urine Blood Small (NEG) Urine Nitrite Negative (NEG) Urine Bilirubin Negative (NEG) Urine Urobilinogen Dipstick 1.0 mg/dL (0.2 mg/dL) Urine Leukocyte Esterase Large (NEG) Urine RBC 3-5 /HPF (0-2) Urine WBC 20-40 /HPF (0-4) Urine Squamous Epithelial Cells None /LPF Urine Bacteria Few /HPF (0-FEW) Urine Mucus Slight /LPF Laboratory Tests 12/28/17 23:27 Laboratory Tests 12/28/17 23:27 EKG EKG [Sinus tachycardia at a rate of 124 beats for minute, normal axis, normal intervals, poor anterior R progression with nonspecific ST/T changes without acute ischemic changes noted.] Radiology/Procedures Radiology/Procedures [PROCEDURE: PORTABLE CHEST 1V PORTABLE CHEST 1V Clinical Indication: soa Comparison: AP chest, June 07, 2016. Findings: Ectatic and tortuous thoracic aorta. Cardiac size upper limits of normal. Lungs are clear. There is no pneumothorax. No pleural effusion is appreciated. There are multiple old right rib fractures. There is degenerative arthropathy of the bilateral shoulders. IMPRESSION: No acute cardiopulmonary process. ] Course & Med Decision Making Course & Med Decision Making Pertinent Labs and Imaging studies reviewed. (See chart for details) [12:20 AM: The patient's condition remains stable. I spoke with the hospitalist, who accepted the patient to the hospital for further evaluation and treatment. HR improved to 110's. BP remains normal. ] Dragon Disclaimer Dragon Disclaimer This electronic medical record was generated, in whole or in part, using a voice recognition dictation system. Departure Departure Impression: Primary Impression: UTI (urinary tract infection) Additional Impression: Sepsis Disposition: 09 ADMITTED INPATIENT Admitting Physician: Other (Yoshi) Condition: STABLE Referrals: MOHAN VALERIO (PCP) Problem Qualifiers CASSI BORJAS MD Dec 28, 2017 23:09
[2017-12-28] MEDS ORDERED: ACETAMINOPHEN 500 MG TABLET PO ONE (23:30)
[2017-12-28] MEDS ORDERED: IV NORMAL SALINE 1000ML BAG 1,000 ML IV SCH (23:30)
[2017-12-28 23:41] LABS: BASO # 0.1 x10^3/uL (0.0-0.2); BASO % 1 % (0-3); EOS # 0.2 x10^3/uL (0.0-0.7); EOS % 1 % (0-3); HEMATOCRIT 40.8 % (39.0-53.0); HEMOGLOBIN 13.8 g/dL (13.0-17.5); LYMPH # 1.3 x10^3/uL (1.0-4.8); LYMPH % 8 % (24-48); MEAN CORPUSCULAR HEMOGLOBIN 29 pg (25-35); MEAN CORPUSCULAR HGB CONC 34 g/dL (31-37); MEAN CORPUSCULAR VOLUME 85 fL (79-100); MONO # 0.7 x10^3/uL (0.0-1.1); MONO % 5 % (0-9); NEUT # 13.7 x10^3uL (1.8-7.7); NEUT % 86 % (31-73); PLATELET COUNT 250 x10^3/uL (140-400); RED BLOOD COUNT 4.81 x10^6/uL (4.30-5.70); RED CELL DISTRIBUTION WIDTH 13.8 % (11.5-14.5); WHITE BLOOD COUNT 15.9 x10^3/uL (4.0-11.0)
--- NOTE | 2017-12-28 23:50 | RAD ---
PORTABLE CHEST 1V Clinical Indication: soa Comparison: AP chest, June 07, 2016. Findings: Ectatic and tortuous thoracic aorta. Cardiac size upper limits of normal. Lungs are clear. There is no pneumothorax. No pleural effusion is appreciated. There are multiple old right rib fractures. There is degenerative arthropathy of the bilateral shoulders. IMPRESSION: No acute cardiopulmonary process. Electronically signed by: Everett Beatty MD (12/28/2017 11:47 PM) [id number]
[2017-12-28 23:55] LABS: ANION GAP 6 (6-14); BLOOD UREA NITROGEN 14 mg/dL (8-26); BUN/CREATININE RATIO 10 (6-20); CALCIUM 9.2 mg/dL (8.5-10.1); CARBON DIOXIDE 28 mmol/L (21-32); CHLORIDE 104 mmol/L (98-107); CREATININE 1.4 mg/dL (0.7-1.3); GFR 60.3; GLUCOSE 163 mg/dL (70-99); SODIUM 138 mmol/L (136-145)
[2017-12-28 23:59] LABS: BILIRUBIN,URINE NEGATIVE (NEG); CLARITY,URINE CLOUDY; COLOR,URINE YELLOW; NITRITE,URINE NEGATIVE (NEG); PH,URINE 5.5; PROTEIN,URINE NEGATIVE (NEG-TRACE)
[2017-12-29 00:04] LABS: BACTERIA,URINE FEW /HPF (0-FEW); WBC,URINE 20-40 /HPF (0-4)
[2017-12-29 00:09] LABS: ALBUMIN 3.4 g/dL (3.4-5.0); ALBUMIN/GLOBULIN RATIO 0.7 (1.0-1.7); ALK PHOS 77 U/L (46-116); ALT (SGPT) 23 U/L (16-63); AST (SGOT) 19 U/L (15-37); LIPASE 151 U/L (73-393); MAGNESIUM 1.8 mg/dL (1.8-2.4); TOTAL BILIRUBIN 0.3 mg/dL (0.2-1.0)
[2017-12-29 00:10] LABS: FREE T4 1.15 ng/dL (0.76-1.46); THYROID STIM HORMONE (TSH) 0.647 uIU/mL (0.358-3.74)
[2017-12-29 00:12] LABS: CREATINE KINASE 59 U/L (39-308)
[2017-12-29 00:17] LABS: % BANDS 2 % (0-9); % LYMPHS 9 % (24-48); % MONOS 6 % (0-10); % SEGS 83 % (35-66); PLT ESTIMATE ADEQUATE (ADEQUATE); TOXIC GRANULATION SLIGHT
[2017-12-29] MEDS ORDERED: IV NORMAL SALINE 1000ML BAG 1,000 ML IV ONE ×2 (01:00)
[2017-12-29] MEDS ORDERED: IV RINGERS,LACTATED 1000ML 1,000 ML IV ONE (02:00)
[2017-12-29 03:00] VITALS: BP 137/75
--- NOTE | 2017-12-29 06:19 | EKG ---
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
[2017-12-29 11:00] VITALS: BP 166/91
[2017-12-29] MEDS: AMINO AC 3%/ELECTROLYTE/GLYCER 1,000 ML IV SCH ×2 (11:30→20:54)
[2017-12-29 15:00] VITALS: BP 160/82
--- NOTE | 2017-12-29 15:43 | HP ---
ADMIT DATE: 12/29/2017 CHIEF COMPLAINT: Fever and tachycardia. HISTORY OF PRESENT ILLNESS: The patient is a pleasant elderly male who has dementia. He has developed fever and tachycardia at his facility. He was brought in by ambulance. While here in the ER, we have noted that he has UTI with probable sepsis. I have discussed the case with the ER physician. We are going to go ahead, admit the patient and give him IV Rocephin, IV procalamine. PAST MEDICAL HISTORY: Advanced dementia, hyperlipidemia, hypertension, weakness, previous PEG tube that was reversed. ALLERGIES: None. FAMILY HISTORY: Hypertension. SOCIAL HISTORY: I believe he resides at a facility. He does not drink, smoke or take drugs. MEDICATIONS: Reviewed, please refer to the MRAD. REVIEW OF SYSTEMS: Unable to obtain. The patient is too confused. PHYSICAL EXAMINATION: VITAL SIGNS: Temperature afebrile, pulse 92, respirations 18, blood pressure 144/90. GENERAL: He is sleeping. He awakens but then goes back to sleep. The only word, he says to me, is no. HEART: Normal S1, S2. LUNGS: Clear. ABDOMEN: Soft, slightly tender. EXTREMITIES: Trace edema. SKIN: No rash. ENDOCRINE: No thyromegaly. LYMPHATICS: No cervical nodes. HEMATOPOIETIC: No bruising. LABORATORY DATA: Sodium 138, potassium 4, chloride 104, bicarbonate 28, BUN 14, creatinine 1.4, glucose 163. White count 16. Urinalysis shows 20-40 white cells, few bacteria and leukocyte esterase. ASSESSMENT AND PLAN: Urinary tract infection with sepsis, leukocytosis, and metabolic encephalopathy. The patient has been admitted. We will give him IV Rocephin, IV procalamine. We will try to resume his home meds. If he does not perk up in the next day or two, we may need to get palliative care on board. LONG-TERM PROGNOSIS: Guarded at best. ZIGGY GARCIA DO DR: IESHA/guera JOB#: [id number] / [id number]
[2017-12-29 19:00] VITALS: BP 158/84
[2017-12-29] MEDS: cefTRIAXone IV Push 1 GM VIAL. IVP SCH (20:54)
[2017-12-29] MEDS: LACTOBACILLUS RHAMNOSUS GG 1 CAPSULE. PO SCH (20:55)
[2017-12-29 23:00] VITALS: BP_SYST 154; BP_SYST 156; BP_DIAS 45; BP_DIAS 83
[2017-12-30] VITALS (7 sets, daily range): BP systolic 109–173; BP diastolic 57–103
[2017-12-30 04:43] LABS: BASO # 0.1 x10^3/uL (0.0-0.2); BASO % 1 % (0-3); EOS # 0.8 x10^3/uL (0.0-0.7); EOS % 7 % (0-3); HEMATOCRIT 31.9 % (39.0-53.0); HEMOGLOBIN 10.9 g/dL (13.0-17.5); LYMPH # 2.1 x10^3/uL (1.0-4.8); LYMPH % 18 % (24-48); MEAN CORPUSCULAR HEMOGLOBIN 29 pg (25-35); MEAN CORPUSCULAR HGB CONC 34 g/dL (31-37); MEAN CORPUSCULAR VOLUME 85 fL (79-100); MONO # 0.6 x10^3/uL (0.0-1.1); MONO % 6 % (0-9); NEUT # 7.9 x10^3uL (1.8-7.7); NEUT % 69 % (31-73); PLATELET COUNT 173 x10^3/uL (140-400); RED BLOOD COUNT 3.77 x10^6/uL (4.30-5.70); RED CELL DISTRIBUTION WIDTH 13.8 % (11.5-14.5); WHITE BLOOD COUNT 11.4 x10^3/uL (4.0-11.0)
[2017-12-30 05:01] LABS: ALBUMIN 2.6 g/dL (3.4-5.0); ALBUMIN/GLOBULIN RATIO 0.7 (1.0-1.7); CALCIUM 8.4 mg/dL (8.5-10.1); CREATININE 1.1 mg/dL (0.7-1.3); GFR 79.6; POTASSIUM 3.6 mmol/L (3.5-5.1); TOTAL BILIRUBIN 0.3 mg/dL (0.2-1.0); TOTAL PROTEIN 6.3 g/dL (6.4-8.2)
[2017-12-30] MEDS: LACTOBACILLUS RHAMNOSUS GG 1 CAPSULE. PO SCH ×2 (09:00→21:25)
--- NOTE | 2017-12-30 12:05 | PDOC ---
PROGRESS NOTES Chief Complaint Chief Complaint UTI w/ sepsis Leukocytosis Metabolic encephalopathy Advanced dementia HLD HTN Weakness Hx PEG tube, was reversed History of Present Illness History of Present Illness Pt seen and examined Dw RN Pt awake and eating Pt pleasant but not communicative Vitals Vitals Vital Signs Date Time Temp Pulse Resp B/P (MAP) Pulse Ox O2 Delivery O2 Flow Rate FiO2 12/30/17 11:00 97.3 101 17 134/93 (107) 95 Room Air 97.3 Physical Exam General: Alert, No acute distress Heart: Regular rate Lungs: Clear Abdomen: Normal bowel sounds, Soft Extremities: No clubbing, No cyanosis Skin: No rashes, No breakdown Labs LABS Laboratory Tests Test 12/30/17 03:50 White Blood Count 11.4 x10^3/uL (4.0-11.0) Red Blood Count 3.77 x10^6/uL (4.30-5.70) Hemoglobin 10.9 g/dL (13.0-17.5) Hematocrit 31.9 % (39.0-53.0) Mean Corpuscular Volume 85 fL (79-100) Mean Corpuscular Hemoglobin 29 pg (25-35) Mean Corpuscular Hemoglobin Concent 34 g/dL (31-37) Red Cell Distribution Width 13.8 % (11.5-14.5) Platelet Count 173 x10^3/uL (140-400) Neutrophils (%) (Auto) 69 % (31-73) Lymphocytes (%) (Auto) 18 % (24-48) Monocytes (%) (Auto) 6 % (0-9) Eosinophils (%) (Auto) 7 % (0-3) Basophils (%) (Auto) 1 % (0-3) Neutrophils # (Auto) 7.9 x10^3uL (1.8-7.7) Lymphocytes # (Auto) 2.1 x10^3/uL (1.0-4.8) Monocytes # (Auto) 0.6 x10^3/uL (0.0-1.1) Eosinophils # (Auto) 0.8 x10^3/uL (0.0-0.7) Basophils # (Auto) 0.1 x10^3/uL (0.0-0.2) Sodium Level 138 mmol/L (136-145) Potassium Level 3.6 mmol/L (3.5-5.1) Chloride Level 106 mmol/L (98-107) Carbon Dioxide Level 25 mmol/L (21-32) Anion Gap 7 (6-14) Blood Urea Nitrogen 11 mg/dL (8-26) Creatinine 1.1 mg/dL (0.7-1.3) Estimated GFR (Cockcroft-Gault) 79.6 BUN/Creatinine Ratio 10 (6-20) Glucose Level 86 mg/dL (70-99) Calcium Level 8.4 mg/dL (8.5-10.1) Total Bilirubin 0.3 mg/dL (0.2-1.0) Aspartate Amino Transf (AST/SGOT) 13 U/L (15-37) Alanine Aminotransferase (ALT/SGPT) 15 U/L (16-63) Alkaline Phosphatase 59 U/L (46-116) Total Protein 6.3 g/dL (6.4-8.2) Albumin 2.6 g/dL (3.4-5.0) Albumin/Globulin Ratio 0.7 (1.0-1.7) Review of Systems Review of Systems Pt non communicative Assessment and Plan Assessmemt and Plan Problems Medical Problems: (1) Sepsis Status: Acute (2) UTI (urinary tract infection) Status: Acute UTI w/ sepsis Leukocytosis Metabolic encephalopathy Advanced dementia HLD HTN Weakness Hx PEG tube, was reversed Plan: Continue PPN Continue Abx PT/OT Home meds Possible [facility] Comment Review of Relevant I have reviewed the following items grisel (where applicable) has been applied. Labs Laboratory Tests Test 12/28/17 23:27 12/28/17 23:45 12/29/17 04:00 12/29/17 06:00 White Blood Count 15.9 x10^3/uL (4.0-11.0) Red Blood Count 4.81 x10^6/uL (4.30-5.70) Hemoglobin 13.8 g/dL (13.0-17.5) Hematocrit 40.8 % (39.0-53.0) Mean Corpuscular Volume 85 fL (79-100) Mean Corpuscular Hemoglobin 29 pg (25-35) Mean Corpuscular Hemoglobin Concent 34 g/dL (31-37) Red Cell Distribution Width 13.8 % (11.5-14.5) Platelet Count 250 x10^3/uL (140-400) Neutrophils (%) (Auto) 86 % (31-73) Lymphocytes (%) (Auto) 8 % (24-48) Monocytes (%) (Auto) 5 % (0-9) Eosinophils (%) (Auto) 1 % (0-3) Basophils (%) (Auto) 1 % (0-3) Neutrophils # (Auto) 13.7 x10^3uL (1.8-7.7) Lymphocytes # (Auto) 1.3 x10^3/uL (1.0-4.8) Monocytes # (Auto) 0.7 x10^3/uL (0.0-1.1) Eosinophils # (Auto) 0.2 x10^3/uL (0.0-0.7) Basophils # (Auto) 0.1 x10^3/uL (0.0-0.2) Segmented Neutrophils % 83 % (35-66) Band Neutrophils % 2 % (0-9) Lymphocytes % 9 % (24-48) Monocytes % 6 % (0-10) Toxic Granulation Slight Platelet Estimate Adequate (ADEQUATE) Sodium Level 138 mmol/L (136-145) Potassium Level 4.0 mmol/L (3.5-5.1) Chloride Level 104 mmol/L (98-107) Carbon Dioxide Level 28 mmol/L (21-32) Anion Gap 6 (6-14) Blood Urea Nitrogen 14 mg/dL (8-26) Creatinine 1.4 mg/dL (0.7-1.3) Estimated GFR (Cockcroft-Gault) 60.3 BUN/Creatinine Ratio 10 (6-20) Glucose Level 163 mg/dL (70-99) Lactic Acid Level 3.0 mmol/L (0.4-2.0) 1.6 mmol/L (0.4-2.0) Calcium Level 9.2 mg/dL (8.5-10.1) Magnesium Level 1.8 mg/dL (1.8-2.4) Total Bilirubin 0.3 mg/dL (0.2-1.0) Aspartate Amino Transf (AST/SGOT) 19 U/L (15-37) Alanine Aminotransferase (ALT/SGPT) 23 U/L (16-63) Alkaline Phosphatase 77 U/L (46-116) Creatine Kinase 59 U/L (39-308) Creatine Kinase MB (Mass) < 0.5 ng/mL (0.0-3.6) Creatine Kinase MB Relative Index % (0-4) Troponin I Quantitative < 0.017 ng/mL (0.000-0.055) PT-Xng-T-Type Natriuretic Peptide 339 pg/mL (0-124) Total Protein 8.0 g/dL (6.4-8.2) Albumin 3.4 g/dL (3.4-5.0) Albumin/Globulin Ratio 0.7 (1.0-1.7) Lipase 151 U/L (73-393) Thyroid Stimulating Hormone (TSH) 0.647 uIU/mL (0.358-3.74) Free Thyroxine 1.15 ng/dL (0.76-1.46) Valproic Acid (Depakene) Level mcg/mL (50-100) Valproic Acid Last Dose Date Unk Valproic Acid Last Dose Time Unk Urine Collection Type U cath Urine Color Yellow Urine Clarity Cloudy Urine pH 5.5 Urine Specific [place] 1.020 Urine Protein Negative mg/dL (NEG-TRACE) Urine Glucose (UA) Negative mg/dL (NEG) Urine Ketones (Stick) Trace mg/dL (NEG) Urine Blood Small (NEG) Urine Nitrite Negative (NEG) Urine Bilirubin Negative (NEG) Urine Urobilinogen Dipstick 1.0 mg/dL (0.2 mg/dL) Urine Leukocyte Esterase Large (NEG) Urine RBC 3-5 /HPF (0-2) Urine WBC 20-40 /HPF (0-4) Urine Squamous Epithelial Cells None /LPF Urine Bacteria Few /HPF (0-FEW) Urine Mucus Slight /LPF Nasal Screen MRSA (PCR) Positive (Negative) Test 12/30/17 03:50 White Blood Count 11.4 x10^3/uL (4.0-11.0) Red Blood Count 3.77 x10^6/uL (4.30-5.70) Hemoglobin 10.9 g/dL (13.0-17.5) Hematocrit 31.9 % (39.0-53.0) Mean Corpuscular Volume 85 fL (79-100) Mean Corpuscular Hemoglobin 29 pg (25-35) Mean Corpuscular Hemoglobin Concent 34 g/dL (31-37) Red Cell Distribution Width 13.8 % (11.5-14.5) Platelet Count 173 x10^3/uL (140-400) Neutrophils (%) (Auto) 69 % (31-73) Lymphocytes (%) (Auto) 18 % (24-48) Monocytes (%) (Auto) 6 % (0-9) Eosinophils (%) (Auto) 7 % (0-3) Basophils (%) (Auto) 1 % (0-3) Neutrophils # (Auto) 7.9 x10^3uL (1.8-7.7) Lymphocytes # (Auto) 2.1 x10^3/uL (1.0-4.8) Monocytes # (Auto) 0.6 x10^3/uL (0.0-1.1) Eosinophils # (Auto) 0.8 x10^3/uL (0.0-0.7) Basophils # (Auto) 0.1 x10^3/uL (0.0-0.2) Sodium Level 138 mmol/L (136-145) Potassium Level 3.6 mmol/L (3.5-5.1) Chloride Level 106 mmol/L (98-107) Carbon Dioxide Level 25 mmol/L (21-32) Anion Gap 7 (6-14) Blood Urea Nitrogen 11 mg/dL (8-26) Creatinine 1.1 mg/dL (0.7-1.3) Estimated GFR (Cockcroft-Gault) 79.6 BUN/Creatinine Ratio 10 (6-20) Glucose Level 86 mg/dL (70-99) Calcium Level 8.4 mg/dL (8.5-10.1) Total Bilirubin 0.3 mg/dL (0.2-1.0) Aspartate Amino Transf (AST/SGOT) 13 U/L (15-37) Alanine Aminotransferase (ALT/SGPT) 15 U/L (16-63) Alkaline Phosphatase 59 U/L (46-116) Total Protein 6.3 g/dL (6.4-8.2) Albumin 2.6 g/dL (3.4-5.0) Albumin/Globulin Ratio 0.7 (1.0-1.7) Laboratory Tests Test 12/30/17 03:50 White Blood Count 11.4 x10^3/uL (4.0-11.0) Red Blood Count 3.77 x10^6/uL (4.30-5.70) Hemoglobin 10.9 g/dL (13.0-17.5) Hematocrit 31.9 % (39.0-53.0) Mean Corpuscular Volume 85 fL (79-100) Mean Corpuscular Hemoglobin 29 pg (25-35) Mean Corpuscular Hemoglobin Concent 34 g/dL (31-37) Red Cell Distribution Width 13.8 % (11.5-14.5) Platelet Count 173 x10^3/uL (140-400) Neutrophils (%) (Auto) 69 % (31-73) Lymphocytes (%) (Auto) 18 % (24-48) Monocytes (%) (Auto) 6 % (0-9) Eosinophils (%) (Auto) 7 % (0-3) Basophils (%) (Auto) 1 % (0-3) Neutrophils # (Auto) 7.9 x10^3uL (1.8-7.7) Lymphocytes # (Auto) 2.1 x10^3/uL (1.0-4.8) Monocytes # (Auto) 0.6 x10^3/uL (0.0-1.1) Eosinophils # (Auto) 0.8 x10^3/uL (0.0-0.7) Basophils # (Auto) 0.1 x10^3/uL (0.0-0.2) Sodium Level 138 mmol/L (136-145) Potassium Level 3.6 mmol/L (3.5-5.1) Chloride Level 106 mmol/L (98-107) Carbon Dioxide Level 25 mmol/L (21-32) Anion Gap 7 (6-14) Blood Urea Nitrogen 11 mg/dL (8-26) Creatinine 1.1 mg/dL (0.7-1.3) Estimated GFR (Cockcroft-Gault) 79.6 BUN/Creatinine Ratio 10 (6-20) Glucose Level 86 mg/dL (70-99) Calcium Level 8.4 mg/dL (8.5-10.1) Total Bilirubin 0.3 mg/dL (0.2-1.0) Aspartate Amino Transf (AST/SGOT) 13 U/L (15-37) Alanine Aminotransferase (ALT/SGPT) 15 U/L (16-63) Alkaline Phosphatase 59 U/L (46-116) Total Protein 6.3 g/dL (6.4-8.2) Albumin 2.6 g/dL (3.4-5.0) Albumin/Globulin Ratio 0.7 (1.0-1.7) Medications Current Medications Acetaminophen (Tylenol) 1,000 mg 1X ONCE PO Last administered on 12/29/17at 00: 23; Start 12/28/17 at 23:30; Stop 12/28/17 at 23:31; Status DC Sodium Chloride 1,000 ml @ 1,000 mls/hr Q1H IV Last administered on 12/29/17at 00:24; Start 12/28/17 at 23:30; Stop 12/29/17 at 00:29; Status DC Ceftriaxone Sodium 50 ml @ 100 mls/hr 1X ONCE IV Last administered on at 23:30; Start 12/28/17 at 23:30; Stop 12/28/17 at 23:59; Status DC Sodium Chloride 1,000 ml @ 1,000 mls/hr 1X ONCE IV Last administered on at 00:58; Start 12/29/17 at 01:00; Stop 12/29/17 at 01:59; Status DC Sodium Chloride 1,000 ml @ 1,000 mls/hr 1X ONCE IV Last administered on at 00:58; Start 12/29/17 at 01:00; Stop 12/29/17 at 01:59; Status DC Ringer's Solution 1,000 ml @ 125 mls/hr 1X ONCE IV Last administered on at 03:03; Start 12/29/17 at 02:00; Stop 12/29/17 at 09:59; Status DC Amino Acids/ Glycerin/ Electrolytes 1,000 ml @ 75 mls/hr [id number] IV Last administered on 12/29/17at 20:54; Start 12/29/17 at 11:15 Ceftriaxone Sodium 1 gm/ Dextrose 50 ml @ 100 mls/hr Q24H IV ; Start 12/29/17 at 11:15; Status UNV Ceftriaxone Sodium (Rocephin) 1 gm Q24H IVP Last administered on 12/29/17at 20: 54; Start 12/29/17 at 21:00 Lactobacillus Rhamnosus (Culturelle) 1 cap BID PO ; Start 12/29/17 at 21:00 Active Scripts Active Reported Chlorhexidine Flavor (Chlorhexidine) 1 Ml Liquid 1 Ml MC Milk Of Magnesia (Magnesium Hydroxide) 400 Mg/5 Ml Oral.susp 800 Mg PO PRN PRN Acetaminophen 325 Mg Tablet 650 Mg PO PRN Q6HRS PRN Clonidine Hcl 0.1 Mg Tablet 0.1 Mg PO DAILY Depakote (Divalproex Sodium) 250 Mg Tablet.dr 250 Mg PO QHS Depakote (Divalproex Sodium) 500 Mg Tablet.dr 500 Mg PO DAILY Aricept (Donepezil Hcl) 10 Mg Tablet 1 Tab PO DAILY Namenda Xr (Memantine Hcl) 28 Mg Cap.spr.24 28 Mg PO DAILY Lipitor (Atorvastatin Calcium) 10 Mg Tablet 1 Tab PO QHS Children's Aspirin (Aspirin) 81 Mg Tab.chew 81 Mg PO DAILY Multi-Vitamin Daily (Multivitamin) 1 Each Tablet 1 Each PO DAILY Vitals/I & O Vital Sign - Last 24 Hours 12/29/17 12/29/17 12/29/17 12/29/17 15:00 19:00 19:30 23:00 Temp 97.9 99.7 99.0 97.9 99.7 99.0 Pulse 80 77 84 Resp 18 18 18 B/P (MAP) 160/82 (108) 158/84 (108) 156/83 (107) Pulse Ox 97 97 95 O2 Delivery Room Air Room Air Room Air Room Air 12/30/17 12/30/17 12/30/17 12/30/17 03:00 07:00 08:00 10:11 Temp 98.6 97.9 98.6 97.9 Pulse 76 96 Resp 18 17 B/P (MAP) 144/74 (97) 157/94 (115) Pulse Ox 99 94 O2 Delivery Room Air Room Air Room Air Room Air 12/30/17 11:00 Temp 97.3 97.3 Pulse 101 Resp 17 B/P (MAP) 134/93 (107) Pulse Ox 95 O2 Delivery Room Air Intake and Output 12/29/17 12/29/17 12/30/17 15:00 23:00 07:00 Intake Total 180 ml 1000 ml Output Total 1 ml Balance 180 ml 999 ml ZIGGY GARCIA K III DO Dec 30, 2017 12:05
[2017-12-30] MEDS: AMINO AC 3%/ELECTROLYTE/GLYCER 1,000 ML IV SCH ×2 (13:55→21:51)
[2017-12-30] MEDS ORDERED: ACETAMINOPHEN 325 MG TABLET. PO PRN (15:15)
[2017-12-30] MEDS ORDERED: MAGNESIUM HYDROXIDE 2,400 MG/30 ML ORAL.SUSP. PO PRN (15:15)
[2017-12-30] MEDS: MEMANTINE 10 MG TABLET. PO SCH ×2 (17:29→21:24)
[2017-12-30] MEDS: ASPIRIN CHEWABLE 81 MG TABLET. PO SCH (17:29)
[2017-12-30] MEDS: MULTIVITAMIN with MINERAL TABLET. PO SCH (17:29)
[2017-12-30] MEDS: DONEPEZIL HCL 10 MG TABLET. PO SCH (17:30)
[2017-12-30] MEDS: cloNIDine HCL 0.1 MG TABLET PO SCH (17:30)
[2017-12-30] MEDS ORDERED: diphenhydrAMINE HCL 25 MG CAPSULE PO PRN (21:00)
[2017-12-30] MEDS ORDERED: ONDANSETRON PF 4 MG/2 ML VIAL. IV PRN (21:00)
[2017-12-30] MEDS ORDERED: IBUPROFEN 400 MG TABLET. PO PRN (21:00)
[2017-12-30] MEDS ORDERED: HYDROcodone/APAP 5/325MG 1 TAB TABLET PO PRN (21:00)
[2017-12-30] MEDS ORDERED: ONDANSETRON ODT 4 MG TAB.RAPDIS. PO PRN (21:00)
[2017-12-30] MEDS: DIVALPROEX DELAYED RELEASE 250 MG TABLET.DR. PO SCH (21:24)
[2017-12-30] MEDS: ATORVASTATIN CALCIUM 10 MG TABLET. PO SCH (21:24)
[2017-12-30] MEDS: cefTRIAXone IV Push 1 GM VIAL. IVP SCH (21:25)
[2017-12-31 03:21] VITALS: BP 135/93
[2017-12-31 05:01] LABS: BASO % 1 % (0-3); EOS # 0.4 x10^3/uL (0.0-0.7); EOS % 5 % (0-3); HEMATOCRIT 35.8 % (39.0-53.0); HEMOGLOBIN 11.9 g/dL (13.0-17.5); LYMPH # 1.4 x10^3/uL (1.0-4.8); LYMPH % 18 % (24-48); MEAN CORPUSCULAR HEMOGLOBIN 28 pg (25-35); MEAN CORPUSCULAR HGB CONC 33 g/dL (31-37); MEAN CORPUSCULAR VOLUME 85 fL (79-100); MONO # 0.6 x10^3/uL (0.0-1.1); MONO % 7 % (0-9); NEUT # 5.6 x10^3uL (1.8-7.7); NEUT % 69 % (31-73); PLATELET COUNT 210 x10^3/uL (140-400); RED CELL DISTRIBUTION WIDTH 13.9 % (11.5-14.5)
[2017-12-31 05:19] LABS: CALCIUM 8.9 mg/dL (8.5-10.1); CREATININE 1.2 mg/dL (0.7-1.3); POTASSIUM 3.8 mmol/L (3.5-5.1)
[2017-12-31 07:00] VITALS: BP 172/93
[2017-12-31] MEDS: DIVALPROEX DELAYED RELEASE 500 MG TABLET.DR. PO SCH (08:46)
[2017-12-31] MEDS: DONEPEZIL HCL 10 MG TABLET. PO SCH (08:46)
[2017-12-31] MEDS: MULTIVITAMIN with MINERAL TABLET. PO SCH (08:47)
[2017-12-31] MEDS: MEMANTINE 10 MG TABLET. PO SCH ×2 (08:47→20:01)
[2017-12-31] MEDS: ASPIRIN CHEWABLE 81 MG TABLET. PO SCH (08:47)
[2017-12-31] MEDS: cloNIDine HCL 0.1 MG TABLET PO SCH (08:47)
[2017-12-31] MEDS: LACTOBACILLUS RHAMNOSUS GG 1 CAPSULE. PO SCH ×2 (08:48→20:01)
[2017-12-31 11:00] VITALS: BP 134/74
[2017-12-31] MEDS: CEFPODOXIME PROXETIL 100 MG TABLET. PO SCH ×2 (11:43→20:01)
[2017-12-31 15:00] VITALS: BP 125/79
--- NOTE | 2017-12-31 15:44 | PDOC ---
PROGRESS NOTES Chief Complaint Chief Complaint CC: UTI w/ sepsis Leukocytosis Metabolic encephalopathy Advanced dementia HLD HTN Weakness Hx PEG tube, was reversed History of Present Illness History of Present Illness Pt. seen and examined Pt. awake and oriented VSS DW nursing Pt. on ppn (IV ProcalAmine) and receiving thickened liquids Vitals Vitals Vital Signs Date Time Temp Pulse Resp B/P (MAP) Pulse Ox O2 Delivery O2 Flow Rate FiO2 12/31/17 15:00 97.2 64 18 125/79 (94) Room Air 99.0 97.2 12/31/17 11:00 100 Physical Exam General: Alert, Oriented X3, No acute distress Heart: Regular rate, Normal S1, Normal S2 Lungs: Clear Abdomen: Normal bowel sounds, Soft Extremities: No clubbing, No cyanosis Skin: No rashes, No breakdown Labs LABS Laboratory Tests Test 12/31/17 04:33 White Blood Count 8.0 x10^3/uL (4.0-11.0) Red Blood Count 4.20 x10^6/uL (4.30-5.70) Hemoglobin 11.9 g/dL (13.0-17.5) Hematocrit 35.8 % (39.0-53.0) Mean Corpuscular Volume 85 fL (79-100) Mean Corpuscular Hemoglobin 28 pg (25-35) Mean Corpuscular Hemoglobin Concent 33 g/dL (31-37) Red Cell Distribution Width 13.9 % (11.5-14.5) Platelet Count 210 x10^3/uL (140-400) Neutrophils (%) (Auto) 69 % (31-73) Lymphocytes (%) (Auto) 18 % (24-48) Monocytes (%) (Auto) 7 % (0-9) Eosinophils (%) (Auto) 5 % (0-3) Basophils (%) (Auto) 1 % (0-3) Neutrophils # (Auto) 5.6 x10^3uL (1.8-7.7) Lymphocytes # (Auto) 1.4 x10^3/uL (1.0-4.8) Monocytes # (Auto) 0.6 x10^3/uL (0.0-1.1) Eosinophils # (Auto) 0.4 x10^3/uL (0.0-0.7) Basophils # (Auto) 0.0 x10^3/uL (0.0-0.2) Sodium Level 137 mmol/L (136-145) Potassium Level 3.8 mmol/L (3.5-5.1) Chloride Level 105 mmol/L (98-107) Carbon Dioxide Level 24 mmol/L (21-32) Anion Gap 8 (6-14) Blood Urea Nitrogen 14 mg/dL (8-26) Creatinine 1.2 mg/dL (0.7-1.3) Estimated GFR (Cockcroft-Gault) 72.0 Glucose Level 114 mg/dL (70-99) Calcium Level 8.9 mg/dL (8.5-10.1) Review of Systems Review of Systems C/O generalized pain C/O weakness Assessment and Plan Assessmemt and Plan CC: (1) Sepsis (2) UTI (urinary tract infection) Assessment: UTI w/ sepsis Leukocytosis Metabolic encephalopathy Advanced dementia HLD HTN Weakness Hx PEG tube, was reversed Plan: Continue ppn (IV ProcalAmine) Continue antibiotics Monitor labs PT/OT Continue home meds Continue thickened liquid diet Awaiting discharge back to facility Comment Review of Relevant I have reviewed the following items grisel (where applicable) has been applied. Labs Laboratory Tests Test 12/30/17 03:50 12/31/17 04:33 White Blood Count 11.4 x10^3/uL (4.0-11.0) 8.0 x10^3/uL (4.0-11.0) Red Blood Count 3.77 x10^6/uL (4.30-5.70) 4.20 x10^6/uL (4.30-5.70) Hemoglobin 10.9 g/dL (13.0-17.5) 11.9 g/dL (13.0-17.5) Hematocrit 31.9 % (39.0-53.0) 35.8 % (39.0-53.0) Mean Corpuscular Volume 85 fL (79-100) 85 fL (79-100) Mean Corpuscular Hemoglobin 29 pg (25-35) 28 pg (25-35) Mean Corpuscular Hemoglobin Concent 34 g/dL (31-37) 33 g/dL (31-37) Red Cell Distribution Width 13.8 % (11.5-14.5) 13.9 % (11.5-14.5) Platelet Count 173 x10^3/uL (140-400) 210 x10^3/uL (140-400) Neutrophils (%) (Auto) 69 % (31-73) 69 % (31-73) Lymphocytes (%) (Auto) 18 % (24-48) 18 % (24-48) Monocytes (%) (Auto) 6 % (0-9) 7 % (0-9) Eosinophils (%) (Auto) 7 % (0-3) 5 % (0-3) Basophils (%) (Auto) 1 % (0-3) 1 % (0-3) Neutrophils # (Auto) 7.9 x10^3uL (1.8-7.7) 5.6 x10^3uL (1.8-7.7) Lymphocytes # (Auto) 2.1 x10^3/uL (1.0-4.8) 1.4 x10^3/uL (1.0-4.8) Monocytes # (Auto) 0.6 x10^3/uL (0.0-1.1) 0.6 x10^3/uL (0.0-1.1) Eosinophils # (Auto) 0.8 x10^3/uL (0.0-0.7) 0.4 x10^3/uL (0.0-0.7) Basophils # (Auto) 0.1 x10^3/uL (0.0-0.2) 0.0 x10^3/uL (0.0-0.2) Sodium Level 138 mmol/L (136-145) 137 mmol/L (136-145) Potassium Level 3.6 mmol/L (3.5-5.1) 3.8 mmol/L (3.5-5.1) Chloride Level 106 mmol/L (98-107) 105 mmol/L (98-107) Carbon Dioxide Level 25 mmol/L (21-32) 24 mmol/L (21-32) Anion Gap 7 (6-14) 8 (6-14) Blood Urea Nitrogen 11 mg/dL (8-26) 14 mg/dL (8-26) Creatinine 1.1 mg/dL (0.7-1.3) 1.2 mg/dL (0.7-1.3) Estimated GFR (Cockcroft-Gault) 79.6 72.0 BUN/Creatinine Ratio 10 (6-20) Glucose Level 86 mg/dL (70-99) 114 mg/dL (70-99) Calcium Level 8.4 mg/dL (8.5-10.1) 8.9 mg/dL (8.5-10.1) Total Bilirubin 0.3 mg/dL (0.2-1.0) Aspartate Amino Transf (AST/SGOT) 13 U/L (15-37) Alanine Aminotransferase (ALT/SGPT) 15 U/L (16-63) Alkaline Phosphatase 59 U/L (46-116) Total Protein 6.3 g/dL (6.4-8.2) Albumin 2.6 g/dL (3.4-5.0) Albumin/Globulin Ratio 0.7 (1.0-1.7) Laboratory Tests Test 12/31/17 04:33 White Blood Count 8.0 x10^3/uL (4.0-11.0) Red Blood Count 4.20 x10^6/uL (4.30-5.70) Hemoglobin 11.9 g/dL (13.0-17.5) Hematocrit 35.8 % (39.0-53.0) Mean Corpuscular Volume 85 fL (79-100) Mean Corpuscular Hemoglobin 28 pg (25-35) Mean Corpuscular Hemoglobin Concent 33 g/dL (31-37) Red Cell Distribution Width 13.9 % (11.5-14.5) Platelet Count 210 x10^3/uL (140-400) Neutrophils (%) (Auto) 69 % (31-73) Lymphocytes (%) (Auto) 18 % (24-48) Monocytes (%) (Auto) 7 % (0-9) Eosinophils (%) (Auto) 5 % (0-3) Basophils (%) (Auto) 1 % (0-3) Neutrophils # (Auto) 5.6 x10^3uL (1.8-7.7) Lymphocytes # (Auto) 1.4 x10^3/uL (1.0-4.8) Monocytes # (Auto) 0.6 x10^3/uL (0.0-1.1) Eosinophils # (Auto) 0.4 x10^3/uL (0.0-0.7) Basophils # (Auto) 0.0 x10^3/uL (0.0-0.2) Sodium Level 137 mmol/L (136-145) Potassium Level 3.8 mmol/L (3.5-5.1) Chloride Level 105 mmol/L (98-107) Carbon Dioxide Level 24 mmol/L (21-32) Anion Gap 8 (6-14) Blood Urea Nitrogen 14 mg/dL (8-26) Creatinine 1.2 mg/dL (0.7-1.3) Estimated GFR (Cockcroft-Gault) 72.0 Glucose Level 114 mg/dL (70-99) Calcium Level 8.9 mg/dL (8.5-10.1) Microbiology 12/29/17 Urine Culture - Preliminary, Resulted 12/29/17 Urine Culture Result 1 (NUZHAT) - Preliminary, Resulted Medications Current Medications Acetaminophen (Tylenol) 1,000 mg 1X ONCE PO Last administered on 12/29/17at 00: 23; Start 12/28/17 at 23:30; Stop 12/28/17 at 23:31; Status DC Sodium Chloride 1,000 ml @ 1,000 mls/hr Q1H IV Last administered on 12/29/17at 00:24; Start 12/28/17 at 23:30; Stop 12/29/17 at 00:29; Status DC Ceftriaxone Sodium 50 ml @ 100 mls/hr 1X ONCE IV Last administered on at 23:30; Start 12/28/17 at 23:30; Stop 12/28/17 at 23:59; Status DC Sodium Chloride 1,000 ml @ 1,000 mls/hr 1X ONCE IV Last administered on at 00:58; Start 12/29/17 at 01:00; Stop 12/29/17 at 01:59; Status DC Sodium Chloride 1,000 ml @ 1,000 mls/hr 1X ONCE IV Last administered on at 00:58; Start 12/29/17 at 01:00; Stop 12/29/17 at 01:59; Status DC Ringer's Solution 1,000 ml @ 125 mls/hr 1X ONCE IV Last administered on at 03:03; Start 12/29/17 at 02:00; Stop 12/29/17 at 09:59; Status DC Amino Acids/ Glycerin/ Electrolytes 1,000 ml @ 75 mls/hr [id number] IV Last administered on 12/30/17at 21:51; Start 12/29/17 at 11:15 Ceftriaxone Sodium 1 gm/ Dextrose 50 ml @ 100 mls/hr Q24H IV ; Start 12/29/17 at 11:15; Status UNV Ceftriaxone Sodium (Rocephin) 1 gm Q24H IVP Last administered on 12/30/17at 21:25 ; Start 12/29/17 at 21:00; Stop 12/31/17 at 10:27; Status DC Lactobacillus Rhamnosus (Culturelle) 1 cap BID PO Last administered on 21:25; Start 12/29/17 at 21:00 Acetaminophen (Tylenol) 650 mg PRN Q6HRS PRN PO HEADACHE/TEMP; Start 12/30/17 at 15:15 Aspirin (Children'S Aspirin) 81 mg DAILY08 PO Last administered on 12/31/17at 08: 47; Start 12/30/17 at 15:30 Atorvastatin Calcium (Lipitor) 10 mg QHS PO Last administered on 12/30/17 21:24 ; Start 12/30/17 at 21:00 Clonidine HCl (Catapres) 0.1 mg DAILY PO Last administered on 12/31/17 08:47; Start 12/30/17 at 15:30 Magnesium Hydroxide (Milk Of Magnesia) 800 mg PRN DAILY PRN PO CONSTIPATION; Start 12/30/17 at 15:15 Divalproex Sodium (Depakote) 250 mg QHS PO Last administered on 12/30/17 21:24 ; Start 12/30/17 at 21:00 Divalproex Sodium (Depakote) 500 mg DAILY PO Last administered on 12/31/17 08: 46; Start 12/31/17 at 09:00 Donepezil HCl (Aricept) 10 mg DAILY PO Last administered on 12/31/17 08:46; Start 12/30/17 at 15:30 Memantine (Namenda) 10 mg BID PO Last administered on 12/31/17 08:47; Start 12/30/17 at 15:30 Multivitamins (Thera M Plus) 1 tab DAILY PO Last administered on 9/1/18at 17:29 ; Start 12/30/17 at 15:30 Labetalol HCl (Normodyne Iv Push) 20 mg PRN Q2HR PRN IVP HYPERTENSION, SEE COMMENTS; Start 12/30/17 at 21:00 Ondansetron HCl (Zofran) 4 mg PRN Q6HRS PRN IV NAUSEA/VOMITING 1ST CHOICE; Start 12/30/17 at 21:00 Ondansetron HCl (Zofran Odt) 4 mg PRN Q6HRS PRN PO NAUSEA/VOMITING 1ST CHOICE PO; Start 12/30/17 at 21:00 Acetaminophen/ Hydrocodone Bitart (Lortab 5/325) 1 tab PRN Q4HRS PRN PO MODERATE PAIN; Start 12/30/17 at 21:00 Ibuprofen (Motrin) 400 mg PRN Q6HRS PRN PO INFLAMMATION; Start 12/30/17 at 21:00 Diphenhydramine HCl (Benadryl) 25 mg PRN QHS PRN PO INSOMNIA; Start 12/30/17 at 21:00 Cefpodoxime Proxetil (Vantin) 200 mg BID PO Last administered on 12/31/17at 11:43 ; Start 12/31/17 at 10:30 Active Scripts Active Reported Chlorhexidine Flavor (Chlorhexidine) 1 Ml Liquid 1 Ml MC Milk Of Magnesia (Magnesium Hydroxide) 400 Mg/5 Ml Oral.susp 800 Mg PO PRN PRN Acetaminophen 325 Mg Tablet 650 Mg PO PRN Q6HRS PRN Clonidine Hcl 0.1 Mg Tablet 0.1 Mg PO DAILY Depakote (Divalproex Sodium) 250 Mg Tablet.dr 250 Mg PO QHS Depakote (Divalproex Sodium) 500 Mg Tablet.dr 500 Mg PO DAILY Aricept (Donepezil Hcl) 10 Mg Tablet 1 Tab PO DAILY Namenda Xr (Memantine Hcl) 28 Mg Cap.spr.24 28 Mg PO DAILY Lipitor (Atorvastatin Calcium) 10 Mg Tablet 1 Tab PO QHS Children's Aspirin (Aspirin) 81 Mg Tab.chew 81 Mg PO DAILY Multi-Vitamin Daily (Multivitamin) 1 Each Tablet 1 Each PO DAILY Vitals/I & O Vital Sign - Last 24 Hours 12/30/17 12/30/17 12/30/17 12/30/17 17:30 19:00 20:00 23:00 Temp 95.5 97.6 95.5 97.6 Pulse 96 102 79 Resp 20 20 B/P (MAP) 173/103 136/85 (102) 122/68 (86) Pulse Ox 95 99 O2 Delivery Room Air Room Air Room Air 12/31/17 12/31/17 12/31/17 12/31/17 03:21 07:00 08:00 08:47 Temp 97.7 97.3 97.7 97.3 Pulse 76 61 61 Resp 20 17 B/P (MAP) 135/93 (107) 172/93 (119) 172/93 Pulse Ox 98 100 O2 Delivery Room Air Room Air Room Air 12/31/17 12/31/17 11:00 15:00 Temp 97.9 97.2 97.9 97.2 Pulse 98 64 Resp 18 18 B/P (MAP) 134/74 (94) 125/79 (94) Pulse Ox 100 O2 Delivery Room Air Room Air O2 Flow Rate 99.0 Intake and Output 12/30/17 12/30/17 12/31/17 15:00 23:00 07:00 Intake Total 400 ml Balance 400 ml ZIGGY GARCIA III DO Dec 31, 2017 15:44
[2017-12-31] MEDS: AMINO AC 3%/ELECTROLYTE/GLYCER 1,000 ML IV SCH (17:16)
[2017-12-31 19:00] VITALS: BP 141/103
[2017-12-31] MEDS: DIVALPROEX DELAYED RELEASE 250 MG TABLET.DR. PO SCH (20:02)
[2017-12-31] MEDS: ATORVASTATIN CALCIUM 10 MG TABLET. PO SCH (20:02)
[2017-12-31 23:00] VITALS: BP 122/85
[2018-01-01 03:00] VITALS: BP 161/98
[2018-01-01] MEDS: LABETALOL 20 MG/4 ML DISP.SYRIN. IVP PRN (03:41)
[2018-01-01] MEDS: AMINO AC 3%/ELECTROLYTE/GLYCER 1,000 ML IV SCH ×2 (04:58→19:10)
[2018-01-01 05:22] LABS: BASO % 0 % (0-3); EOS # 0.5 x10^3/uL (0.0-0.7); EOS % 4 % (0-3); HEMATOCRIT 38.6 % (39.0-53.0); HEMOGLOBIN 13.1 g/dL (13.0-17.5); LYMPH # 1.1 x10^3/uL (1.0-4.8); LYMPH % 10 % (24-48); MEAN CORPUSCULAR HEMOGLOBIN 29 pg (25-35); MEAN CORPUSCULAR HGB CONC 34 g/dL (31-37); MEAN CORPUSCULAR VOLUME 84 fL (79-100); MONO # 0.5 x10^3/uL (0.0-1.1); MONO % 5 % (0-9); NEUT # 9.2 x10^3uL (1.8-7.7); NEUT % 81 % (31-73); PLATELET COUNT 240 x10^3/uL (140-400); RED BLOOD COUNT 4.58 x10^6/uL (4.30-5.70); RED CELL DISTRIBUTION WIDTH 13.5 % (11.5-14.5); WHITE BLOOD COUNT 11.4 x10^3/uL (4.0-11.0)
[2018-01-01 06:02] LABS: CALCIUM 9.1 mg/dL (8.5-10.1); CREATININE 1.1 mg/dL (0.7-1.3); GFR 79.6; POTASSIUM 3.6 mmol/L (3.5-5.1)
[2018-01-01 07:46] VITALS: BP 146/86
[2018-01-01] MEDS: CEFPODOXIME PROXETIL 100 MG TABLET. PO SCH ×2 (08:44→20:55)
[2018-01-01] MEDS: ASPIRIN CHEWABLE 81 MG TABLET. PO SCH (08:44)
[2018-01-01] MEDS: DONEPEZIL HCL 10 MG TABLET. PO SCH (08:44)
[2018-01-01] MEDS: MEMANTINE 10 MG TABLET. PO SCH ×2 (08:44→20:55)
[2018-01-01] MEDS: cloNIDine HCL 0.1 MG TABLET PO SCH (08:45)
[2018-01-01] MEDS: MULTIVITAMIN with MINERAL TABLET. PO SCH (08:45)
[2018-01-01] MEDS: LACTOBACILLUS RHAMNOSUS GG 1 CAPSULE. PO SCH ×2 (08:45→20:55)
[2018-01-01] MEDS: DIVALPROEX DELAYED RELEASE 500 MG TABLET.DR. PO SCH (08:45)
--- NOTE | 2018-01-01 11:05 | PDOC ---
PROGRESS NOTES Chief Complaint Chief Complaint IMPRESSION UTI w/ sepsis Leukocytosis Metabolic encephalopathy Advanced dementia HLD HTN Weakness Hx PEG tube, was reversed History of Present Illness History of Present Illness Pt. seen and examined Pt. awake VSS DW nursing Pt. on ppn (IV ProcalAmine) and receiving thickened liquids Vitals Vitals Vital Signs Date Time Temp Pulse Resp B/P (MAP) Pulse Ox O2 Delivery O2 Flow Rate FiO2 01/01/18 08:45 72 146/86 01/01/18 08:05 Room Air 01/01/18 07:46 97.9 16 99 97.9 12/31/17 15:00 99.0 Physical Exam General: Alert, Oriented X3, No acute distress, Other (confused to details) Heart: Regular rate, Normal S1, Normal S2, No murmurs Lungs: Clear Abdomen: Normal bowel sounds, Soft Extremities: No clubbing, No cyanosis Skin: No rashes, No breakdown Labs LABS SPEC #: [id number] ZULEIKA: 12/29/17 STATUS: COMP REQ #: [id number] RECD: 12/29/[address]: CASSI BORJAS MD SOURCE: STRA CATH ENTR: 12/29/[address]: MOHAN VALERIO SPDESC: STR CATH ORDERED: URINE CULTURE Procedure Result URINE CULTURE Final Final report URINE CULTURE RES 1 Final Escherichia coli 25,000-50,000 colony forming units per mL Cefazolin <=4 ug/mL Cefazolin with an NUZHAT <=16 predicts susceptibility to the oral agents cefaclor, cefdinir, cefpodoxime, cefprozil, cefuroxime, cephalexin, and loracarbef when used for therapy of uncomplicated urinary tract infections due to E. coli, Klebsiella pneumoniae, and Proteus mirabilis. ANTIMICROBIAL SUSCEPTIBILITY Final Comment S = Susceptible; I = Intermediate; R = Resistant P = Positive; N = Negative MICS are expressed in micrograms per mL Antibiotic RSLT#1 RSLT#2 RSLT#3 RSLT#4 Amoxicillin/Clavulanic Acid S<=2 Ampicillin S<=2 Cefepime S<=0.12 Ceftriaxone S<=0.25 Cefuroxime S =4 Ciprofloxacin R>=4 Ertapenem S<=0.12 Gentamicin S<=1 Imipenem S<=0.25 Levofloxacin R>=8 Meropenem S<=0.25 Nitrofurantoin S<=16 Piperacillin/Tazobactam S<=4 Tetracycline S<=1 Tobramycin S<=1 Trimethoprim/Sulfa S<=20 Performed at: DA - [facility] [address] [facility] [address], [place], [place] [id number] Laboratory Tests Test 01/01/18 04:47 White Blood Count 11.4 x10^3/uL (4.0-11.0) Red Blood Count 4.58 x10^6/uL (4.30-5.70) Hemoglobin 13.1 g/dL (13.0-17.5) Hematocrit 38.6 % (39.0-53.0) Mean Corpuscular Volume 84 fL (79-100) Mean Corpuscular Hemoglobin 29 pg (25-35) Mean Corpuscular Hemoglobin Concent 34 g/dL (31-37) Red Cell Distribution Width 13.5 % (11.5-14.5) Platelet Count 240 x10^3/uL (140-400) Neutrophils (%) (Auto) 81 % (31-73) Lymphocytes (%) (Auto) 10 % (24-48) Monocytes (%) (Auto) 5 % (0-9) Eosinophils (%) (Auto) 4 % (0-3) Basophils (%) (Auto) 0 % (0-3) Neutrophils # (Auto) 9.2 x10^3uL (1.8-7.7) Lymphocytes # (Auto) 1.1 x10^3/uL (1.0-4.8) Monocytes # (Auto) 0.5 x10^3/uL (0.0-1.1) Eosinophils # (Auto) 0.5 x10^3/uL (0.0-0.7) Basophils # (Auto) 0.0 x10^3/uL (0.0-0.2) Sodium Level 140 mmol/L (136-145) Potassium Level 3.6 mmol/L (3.5-5.1) Chloride Level 106 mmol/L (98-107) Carbon Dioxide Level 25 mmol/L (21-32) Anion Gap 9 (6-14) Blood Urea Nitrogen 14 mg/dL (8-26) Creatinine 1.1 mg/dL (0.7-1.3) Estimated GFR (Cockcroft-Gault) 79.6 Glucose Level 103 mg/dL (70-99) Calcium Level 9.1 mg/dL (8.5-10.1) Assessment and Plan Assessmemt and Plan Problems Medical Problems: (1) Sepsis Status: Acute (2) UTI (urinary tract infection) Status: Acute Comment Review of Relevant I have reviewed the following items grisel (where applicable) has been applied. Labs Laboratory Tests Test 12/31/17 04:33 01/01/18 04:47 White Blood Count 8.0 x10^3/uL (4.0-11.0) 11.4 x10^3/uL (4.0-11.0) Red Blood Count 4.20 x10^6/uL (4.30-5.70) 4.58 x10^6/uL (4.30-5.70) Hemoglobin 11.9 g/dL (13.0-17.5) 13.1 g/dL (13.0-17.5) Hematocrit 35.8 % (39.0-53.0) 38.6 % (39.0-53.0) Mean Corpuscular Volume 85 fL (79-100) 84 fL (79-100) Mean Corpuscular Hemoglobin 28 pg (25-35) 29 pg (25-35) Mean Corpuscular Hemoglobin Concent 33 g/dL (31-37) 34 g/dL (31-37) Red Cell Distribution Width 13.9 % (11.5-14.5) 13.5 % (11.5-14.5) Platelet Count 210 x10^3/uL (140-400) 240 x10^3/uL (140-400) Neutrophils (%) (Auto) 69 % (31-73) 81 % (31-73) Lymphocytes (%) (Auto) 18 % (24-48) 10 % (24-48) Monocytes (%) (Auto) 7 % (0-9) 5 % (0-9) Eosinophils (%) (Auto) 5 % (0-3) 4 % (0-3) Basophils (%) (Auto) 1 % (0-3) 0 % (0-3) Neutrophils # (Auto) 5.6 x10^3uL (1.8-7.7) 9.2 x10^3uL (1.8-7.7) Lymphocytes # (Auto) 1.4 x10^3/uL (1.0-4.8) 1.1 x10^3/uL (1.0-4.8) Monocytes # (Auto) 0.6 x10^3/uL (0.0-1.1) 0.5 x10^3/uL (0.0-1.1) Eosinophils # (Auto) 0.4 x10^3/uL (0.0-0.7) 0.5 x10^3/uL (0.0-0.7) Basophils # (Auto) 0.0 x10^3/uL (0.0-0.2) 0.0 x10^3/uL (0.0-0.2) Sodium Level 137 mmol/L (136-145) 140 mmol/L (136-145) Potassium Level 3.8 mmol/L (3.5-5.1) 3.6 mmol/L (3.5-5.1) Chloride Level 105 mmol/L (98-107) 106 mmol/L (98-107) Carbon Dioxide Level 24 mmol/L (21-32) 25 mmol/L (21-32) Anion Gap 8 (6-14) 9 (6-14) Blood Urea Nitrogen 14 mg/dL (8-26) 14 mg/dL (8-26) Creatinine 1.2 mg/dL (0.7-1.3) 1.1 mg/dL (0.7-1.3) Estimated GFR (Cockcroft-Gault) 72.0 79.6 Glucose Level 114 mg/dL (70-99) 103 mg/dL (70-99) Calcium Level 8.9 mg/dL (8.5-10.1) 9.1 mg/dL (8.5-10.1) Laboratory Tests Test 01/01/18 04:47 White Blood Count 11.4 x10^3/uL (4.0-11.0) Red Blood Count 4.58 x10^6/uL (4.30-5.70) Hemoglobin 13.1 g/dL (13.0-17.5) Hematocrit 38.6 % (39.0-53.0) Mean Corpuscular Volume 84 fL (79-100) Mean Corpuscular Hemoglobin 29 pg (25-35) Mean Corpuscular Hemoglobin Concent 34 g/dL (31-37) Red Cell Distribution Width 13.5 % (11.5-14.5) Platelet Count 240 x10^3/uL (140-400) Neutrophils (%) (Auto) 81 % (31-73) Lymphocytes (%) (Auto) 10 % (24-48) Monocytes (%) (Auto) 5 % (0-9) Eosinophils (%) (Auto) 4 % (0-3) Basophils (%) (Auto) 0 % (0-3) Neutrophils # (Auto) 9.2 x10^3uL (1.8-7.7) Lymphocytes # (Auto) 1.1 x10^3/uL (1.0-4.8) Monocytes # (Auto) 0.5 x10^3/uL (0.0-1.1) Eosinophils # (Auto) 0.5 x10^3/uL (0.0-0.7) Basophils # (Auto) 0.0 x10^3/uL (0.0-0.2) Sodium Level 140 mmol/L (136-145) Potassium Level 3.6 mmol/L (3.5-5.1) Chloride Level 106 mmol/L (98-107) Carbon Dioxide Level 25 mmol/L (21-32) Anion Gap 9 (6-14) Blood Urea Nitrogen 14 mg/dL (8-26) Creatinine 1.1 mg/dL (0.7-1.3) Estimated GFR (Cockcroft-Gault) 79.6 Glucose Level 103 mg/dL (70-99) Calcium Level 9.1 mg/dL (8.5-10.1) Microbiology 12/29/17 Urine Culture - Final, Complete 12/29/17 Urine Culture Result 1 (NUZHAT) - Final, Complete 12/29/17 Antimicrobic Susceptibility - Final, Complete Medications Current Medications Acetaminophen (Tylenol) 1,000 mg 1X ONCE PO Last administered on 12/29/17at 00: 23; Start 12/28/17 at 23:30; Stop 12/28/17 at 23:31; Status DC Sodium Chloride 1,000 ml @ 1,000 mls/hr Q1H IV Last administered on 12/29/17at 00:24; Start 12/28/17 at 23:30; Stop 12/29/17 at 00:29; Status DC Ceftriaxone Sodium 50 ml @ 100 mls/hr 1X ONCE IV Last administered on at 23:30; Start 12/28/17 at 23:30; Stop 12/28/17 at 23:59; Status DC Sodium Chloride 1,000 ml @ 1,000 mls/hr 1X ONCE IV Last administered on at 00:58; Start 12/29/17 at 01:00; Stop 12/29/17 at 01:59; Status DC Sodium Chloride 1,000 ml @ 1,000 mls/hr 1X ONCE IV Last administered on at 00:58; Start 12/29/17 at 01:00; Stop 12/29/17 at 01:59; Status DC Ringer's Solution 1,000 ml @ 125 mls/hr 1X ONCE IV Last administered on at 03:03; Start 12/29/17 at 02:00; Stop 12/29/17 at 09:59; Status DC Amino Acids/ Glycerin/ Electrolytes 1,000 ml @ 75 mls/hr [id number] IV Last administered on 01/01/18at 04:58; Start 12/29/17 at 11:15 Ceftriaxone Sodium 1 gm/ Dextrose 50 ml @ 100 mls/hr Q24H IV ; Start 12/29/17 at 11:15; Status UNV Ceftriaxone Sodium (Rocephin) 1 gm Q24H IVP Last administered on 12/30/17at 21:25 ; Start 12/29/17 at 21:00; Stop 12/31/17 at 10:27; Status DC Lactobacillus Rhamnosus (Culturelle) 1 cap BID PO Last administered on 08:45; Start 12/29/17 at 21:00 Acetaminophen (Tylenol) 650 mg PRN Q6HRS PRN PO HEADACHE/TEMP; Start 12/30/17 at 15:15 Aspirin (Children'S Aspirin) 81 mg DAILY08 PO Last administered on 01/01/18 08: 44; Start 12/30/17 at 15:30 Atorvastatin Calcium (Lipitor) 10 mg QHS PO Last administered on 12/31/17 20:02 ; Start 12/30/17 at 21:00 Clonidine HCl (Catapres) 0.1 mg DAILY PO Last administered on 01/01/18 08:45; Start 12/30/17 at 15:30 Magnesium Hydroxide (Milk Of Magnesia) 800 mg PRN DAILY PRN PO CONSTIPATION; Start 12/30/17 at 15:15 Divalproex Sodium (Depakote) 250 mg QHS PO Last administered on 12/31/17 20:02 ; Start 12/30/17 at 21:00 Divalproex Sodium (Depakote) 500 mg DAILY PO Last administered on 01/01/18 08: 45; Start 12/31/17 at 09:00 Donepezil HCl (Aricept) 10 mg DAILY PO Last administered on 01/01/18 08:44; Start 12/30/17 at 15:30 Memantine (Namenda) 10 mg BID PO Last administered on 01/01/18 08:44; Start 12/30/17 at 15:30 Multivitamins (Thera M Plus) 1 tab DAILY PO Last administered on 01/01/18 08:45 ; Start 12/30/17 at 15:30 Labetalol HCl (Normodyne Iv Push) 20 mg PRN Q2HR PRN IVP HYPERTENSION, SEE COMMENTS Last administered on 01/01/18at 03:41; Start 12/30/17 at 21:00 Ondansetron HCl (Zofran) 4 mg PRN Q6HRS PRN IV NAUSEA/VOMITING 1ST CHOICE; Start 12/30/17 at 21:00 Ondansetron HCl (Zofran Odt) 4 mg PRN Q6HRS PRN PO NAUSEA/VOMITING 1ST CHOICE PO; Start 12/30/17 at 21:00 Acetaminophen/ Hydrocodone Bitart (Lortab 5/325) 1 tab PRN Q4HRS PRN PO MODERATE PAIN; Start 12/30/17 at 21:00 Ibuprofen (Motrin) 400 mg PRN Q6HRS PRN PO INFLAMMATION; Start 12/30/17 at 21:00 Diphenhydramine HCl (Benadryl) 25 mg PRN QHS PRN PO INSOMNIA; Start 12/30/17 at 21:00 Cefpodoxime Proxetil (Vantin) 200 mg BID PO Last administered on 01/01/18at 08:44 ; Start 12/31/17 at 10:30 Active Scripts Active Reported Chlorhexidine Flavor (Chlorhexidine) 1 Ml Liquid 1 Ml MC Milk Of Magnesia (Magnesium Hydroxide) 400 Mg/5 Ml Oral.susp 800 Mg PO PRN PRN Acetaminophen 325 Mg Tablet 650 Mg PO PRN Q6HRS PRN Clonidine Hcl 0.1 Mg Tablet 0.1 Mg PO DAILY Depakote (Divalproex Sodium) 250 Mg Tablet.dr 250 Mg PO QHS Depakote (Divalproex Sodium) 500 Mg Tablet.dr 500 Mg PO DAILY Aricept (Donepezil Hcl) 10 Mg Tablet 1 Tab PO DAILY Namenda Xr (Memantine Hcl) 28 Mg Cap.spr.24 28 Mg PO DAILY Lipitor (Atorvastatin Calcium) 10 Mg Tablet 1 Tab PO QHS Children's Aspirin (Aspirin) 81 Mg Tab.chew 81 Mg PO DAILY Multi-Vitamin Daily (Multivitamin) 1 Each Tablet 1 Each PO DAILY Vitals/I & O Vital Sign - Last 24 Hours 12/31/17 12/31/17 12/31/17 12/31/17 15:00 19:00 20:00 23:00 Temp 97.2 97.7 97.9 97.2 97.7 97.9 Pulse 64 106 103 Resp 18 18 18 B/P (MAP) 125/79 (94) 141/103 (116) 122/85 (97) Pulse Ox 98 97 O2 Delivery Room Air Room Air Room Air Room Air O2 Flow Rate 99.0 01/01/18 01/01/18 01/01/18 01/01/18 03:00 03:41 07:46 08:05 Temp 97.7 97.9 97.7 97.9 Pulse 86 86 72 Resp 18 16 B/P (MAP) 161/98 (119) 161/98 146/86 (106) Pulse Ox 98 99 O2 Delivery Room Air Room Air Room Air 01/01/18 08:45 Pulse 72 B/P (MAP) 146/86 Intake and Output 12/31/17 12/31/17 01/01/18 15:00 23:00 07:00 Intake Total 120 ml 240 ml 873 ml Output Total 1 ml Balance 120 ml 239 ml 873 ml ITA VALDES MD Jan 01, 2018 11:05
[2018-01-01 11:30] VITALS: BP 117/90
[2018-01-01 15:13] VITALS: BP 124/83
[2018-01-01] MEDS: DIVALPROEX DELAYED RELEASE 250 MG TABLET.DR. PO SCH (20:55)
[2018-01-01] MEDS: ATORVASTATIN CALCIUM 10 MG TABLET. PO SCH (20:55)
[2018-01-01 23:00] VITALS: BP 160/87
[2018-01-02] VITALS (7 sets, daily range): BP systolic 104–160; BP diastolic 60–95
[2018-01-02 04:39] LABS: BASO % 0 % (0-3); EOS # 0.6 x10^3/uL (0.0-0.7); EOS % 6 % (0-3); HEMATOCRIT 39.6 % (39.0-53.0); HEMOGLOBIN 13.1 g/dL (13.0-17.5); LYMPH # 1.8 x10^3/uL (1.0-4.8); LYMPH % 17 % (24-48); MEAN CORPUSCULAR HEMOGLOBIN 29 pg (25-35); MEAN CORPUSCULAR HGB CONC 33 g/dL (31-37); MEAN CORPUSCULAR VOLUME 86 fL (79-100); MONO # 0.6 x10^3/uL (0.0-1.1); MONO % 6 % (0-9); NEUT # 7.4 x10^3uL (1.8-7.7); NEUT % 71 % (31-73); PLATELET COUNT 244 x10^3/uL (140-400); RED BLOOD COUNT 4.58 x10^6/uL (4.30-5.70); RED CELL DISTRIBUTION WIDTH 13.8 % (11.5-14.5); WHITE BLOOD COUNT 10.4 x10^3/uL (4.0-11.0)
[2018-01-02 04:49] LABS: CALCIUM 8.9 mg/dL (8.5-10.1); CREATININE 1.1 mg/dL (0.7-1.3); GFR 79.6; POTASSIUM 4.2 mmol/L (3.5-5.1)
[2018-01-02] MEDS: DONEPEZIL HCL 10 MG TABLET. PO SCH (08:50)
[2018-01-02] MEDS: CEFPODOXIME PROXETIL 100 MG TABLET. PO SCH ×2 (08:50→20:56)
[2018-01-02] MEDS: MEMANTINE 10 MG TABLET. PO SCH ×2 (08:50→20:56)
[2018-01-02] MEDS: ASPIRIN CHEWABLE 81 MG TABLET. PO SCH (08:50)
[2018-01-02] MEDS: MULTIVITAMIN with MINERAL TABLET. PO SCH (08:51)
[2018-01-02] MEDS: LACTOBACILLUS RHAMNOSUS GG 1 CAPSULE. PO SCH ×2 (08:51→20:56)
[2018-01-02] MEDS: cloNIDine HCL 0.1 MG TABLET PO SCH (08:51)
[2018-01-02] MEDS: DIVALPROEX DELAYED RELEASE 500 MG TABLET.DR. PO SCH (08:52)
[2018-01-02] MEDS: AMINO AC 3%/ELECTROLYTE/GLYCER 1,000 ML IV SCH ×2 (09:15→20:57)
--- NOTE | 2018-01-02 11:17 | PDOC ---
PROGRESS NOTES Chief Complaint Chief Complaint IMPRESSION UTI w/ sepsis Leukocytosis Metabolic encephalopathy Advanced dementia HLD HTN Weakness Hx PEG tube, was reversed EATING WELL ACCORDING TO RN, 50% OF MEALS TODAY D/C TO [facility] History of Present Illness History of Present Illness Pt. seen and examined Pt. awake VSS DW nursing Pt. on ppn (IV ProcalAmine) and receiving thickened liquids Vitals Vitals Vital Signs Date Time Temp Pulse Resp B/P (MAP) Pulse Ox O2 Delivery O2 Flow Rate FiO2 01/02/18 08:51 78 149/79 01/02/18 08:30 Room Air 01/02/18 07:00 98.0 18 100 98.0 Physical Exam General: Alert, No acute distress, Other (confused to details) Heart: Regular rate, Normal S1, Normal S2, No murmurs Lungs: Clear Abdomen: Normal bowel sounds, Soft Extremities: No clubbing, No cyanosis, No edema Skin: No rashes, No breakdown Labs LABS Laboratory Tests Test 01/02/18 03:40 White Blood Count 10.4 x10^3/uL (4.0-11.0) Red Blood Count 4.58 x10^6/uL (4.30-5.70) Hemoglobin 13.1 g/dL (13.0-17.5) Hematocrit 39.6 % (39.0-53.0) Mean Corpuscular Volume 86 fL (79-100) Mean Corpuscular Hemoglobin 29 pg (25-35) Mean Corpuscular Hemoglobin Concent 33 g/dL (31-37) Red Cell Distribution Width 13.8 % (11.5-14.5) Platelet Count 244 x10^3/uL (140-400) Neutrophils (%) (Auto) 71 % (31-73) Lymphocytes (%) (Auto) 17 % (24-48) Monocytes (%) (Auto) 6 % (0-9) Eosinophils (%) (Auto) 6 % (0-3) Basophils (%) (Auto) 0 % (0-3) Neutrophils # (Auto) 7.4 x10^3uL (1.8-7.7) Lymphocytes # (Auto) 1.8 x10^3/uL (1.0-4.8) Monocytes # (Auto) 0.6 x10^3/uL (0.0-1.1) Eosinophils # (Auto) 0.6 x10^3/uL (0.0-0.7) Basophils # (Auto) 0.0 x10^3/uL (0.0-0.2) Sodium Level 140 mmol/L (136-145) Potassium Level 4.2 mmol/L (3.5-5.1) Chloride Level 105 mmol/L (98-107) Carbon Dioxide Level 26 mmol/L (21-32) Anion Gap 9 (6-14) Blood Urea Nitrogen 18 mg/dL (8-26) Creatinine 1.1 mg/dL (0.7-1.3) Estimated GFR (Cockcroft-Gault) 79.6 Glucose Level 82 mg/dL (70-99) Calcium Level 8.9 mg/dL (8.5-10.1) Assessment and Plan Assessmemt and Plan Problems Medical Problems: (1) Sepsis Status: Acute (2) UTI (urinary tract infection) Status: Acute Comment Review of Relevant I have reviewed the following items grisel (where applicable) has been applied. Labs Laboratory Tests Test 01/01/18 04:47 01/02/18 03:40 White Blood Count 11.4 x10^3/uL (4.0-11.0) 10.4 x10^3/uL (4.0-11.0) Red Blood Count 4.58 x10^6/uL (4.30-5.70) 4.58 x10^6/uL (4.30-5.70) Hemoglobin 13.1 g/dL (13.0-17.5) 13.1 g/dL (13.0-17.5) Hematocrit 38.6 % (39.0-53.0) 39.6 % (39.0-53.0) Mean Corpuscular Volume 84 fL (79-100) 86 fL (79-100) Mean Corpuscular Hemoglobin 29 pg (25-35) 29 pg (25-35) Mean Corpuscular Hemoglobin Concent 34 g/dL (31-37) 33 g/dL (31-37) Red Cell Distribution Width 13.5 % (11.5-14.5) 13.8 % (11.5-14.5) Platelet Count 240 x10^3/uL (140-400) 244 x10^3/uL (140-400) Neutrophils (%) (Auto) 81 % (31-73) 71 % (31-73) Lymphocytes (%) (Auto) 10 % (24-48) 17 % (24-48) Monocytes (%) (Auto) 5 % (0-9) 6 % (0-9) Eosinophils (%) (Auto) 4 % (0-3) 6 % (0-3) Basophils (%) (Auto) 0 % (0-3) 0 % (0-3) Neutrophils # (Auto) 9.2 x10^3uL (1.8-7.7) 7.4 x10^3uL (1.8-7.7) Lymphocytes # (Auto) 1.1 x10^3/uL (1.0-4.8) 1.8 x10^3/uL (1.0-4.8) Monocytes # (Auto) 0.5 x10^3/uL (0.0-1.1) 0.6 x10^3/uL (0.0-1.1) Eosinophils # (Auto) 0.5 x10^3/uL (0.0-0.7) 0.6 x10^3/uL (0.0-0.7) Basophils # (Auto) 0.0 x10^3/uL (0.0-0.2) 0.0 x10^3/uL (0.0-0.2) Sodium Level 140 mmol/L (136-145) 140 mmol/L (136-145) Potassium Level 3.6 mmol/L (3.5-5.1) 4.2 mmol/L (3.5-5.1) Chloride Level 106 mmol/L (98-107) 105 mmol/L (98-107) Carbon Dioxide Level 25 mmol/L (21-32) 26 mmol/L (21-32) Anion Gap 9 (6-14) 9 (6-14) Blood Urea Nitrogen 14 mg/dL (8-26) 18 mg/dL (8-26) Creatinine 1.1 mg/dL (0.7-1.3) 1.1 mg/dL (0.7-1.3) Estimated GFR (Cockcroft-Gault) 79.6 79.6 Glucose Level 103 mg/dL (70-99) 82 mg/dL (70-99) Calcium Level 9.1 mg/dL (8.5-10.1) 8.9 mg/dL (8.5-10.1) Laboratory Tests Test 01/02/18 03:40 White Blood Count 10.4 x10^3/uL (4.0-11.0) Red Blood Count 4.58 x10^6/uL (4.30-5.70) Hemoglobin 13.1 g/dL (13.0-17.5) Hematocrit 39.6 % (39.0-53.0) Mean Corpuscular Volume 86 fL (79-100) Mean Corpuscular Hemoglobin 29 pg (25-35) Mean Corpuscular Hemoglobin Concent 33 g/dL (31-37) Red Cell Distribution Width 13.8 % (11.5-14.5) Platelet Count 244 x10^3/uL (140-400) Neutrophils (%) (Auto) 71 % (31-73) Lymphocytes (%) (Auto) 17 % (24-48) Monocytes (%) (Auto) 6 % (0-9) Eosinophils (%) (Auto) 6 % (0-3) Basophils (%) (Auto) 0 % (0-3) Neutrophils # (Auto) 7.4 x10^3uL (1.8-7.7) Lymphocytes # (Auto) 1.8 x10^3/uL (1.0-4.8) Monocytes # (Auto) 0.6 x10^3/uL (0.0-1.1) Eosinophils # (Auto) 0.6 x10^3/uL (0.0-0.7) Basophils # (Auto) 0.0 x10^3/uL (0.0-0.2) Sodium Level 140 mmol/L (136-145) Potassium Level 4.2 mmol/L (3.5-5.1) Chloride Level 105 mmol/L (98-107) Carbon Dioxide Level 26 mmol/L (21-32) Anion Gap 9 (6-14) Blood Urea Nitrogen 18 mg/dL (8-26) Creatinine 1.1 mg/dL (0.7-1.3) Estimated GFR (Cockcroft-Gault) 79.6 Glucose Level 82 mg/dL (70-99) Calcium Level 8.9 mg/dL (8.5-10.1) Microbiology 12/29/17 Urine Culture - Final, Complete 12/29/17 Urine Culture Result 1 (NUZHAT) - Final, Complete 12/29/17 Antimicrobic Susceptibility - Final, Complete Medications Current Medications Acetaminophen (Tylenol) 1,000 mg 1X ONCE PO Last administered on 12/29/17at 00: 23; Start 12/28/17 at 23:30; Stop 12/28/17 at 23:31; Status DC Sodium Chloride 1,000 ml @ 1,000 mls/hr Q1H IV Last administered on 12/29/17at 00:24; Start 12/28/17 at 23:30; Stop 12/29/17 at 00:29; Status DC Ceftriaxone Sodium 50 ml @ 100 mls/hr 1X ONCE IV Last administered on at 23:30; Start 12/28/17 at 23:30; Stop 12/28/17 at 23:59; Status DC Sodium Chloride 1,000 ml @ 1,000 mls/hr 1X ONCE IV Last administered on at 00:58; Start 12/29/17 at 01:00; Stop 12/29/17 at 01:59; Status DC Sodium Chloride 1,000 ml @ 1,000 mls/hr 1X ONCE IV Last administered on at 00:58; Start 12/29/17 at 01:00; Stop 12/29/17 at 01:59; Status DC Ringer's Solution 1,000 ml @ 125 mls/hr 1X ONCE IV Last administered on at 03:03; Start 12/29/17 at 02:00; Stop 12/29/17 at 09:59; Status DC Amino Acids/ Glycerin/ Electrolytes 1,000 ml @ 75 mls/hr [id number] IV Last administered on 01/02/18at 09:15; Start 12/29/17 at 11:15 Ceftriaxone Sodium 1 gm/ Dextrose 50 ml @ 100 mls/hr Q24H IV ; Start 12/29/17 at 11:15; Status UNV Ceftriaxone Sodium (Rocephin) 1 gm Q24H IVP Last administered on 12/30/17at 21:25 ; Start 12/29/17 at 21:00; Stop 12/31/17 at 10:27; Status DC Lactobacillus Rhamnosus (Culturelle) 1 cap BID PO Last administered on 08:51; Start 12/29/17 at 21:00 Acetaminophen (Tylenol) 650 mg PRN Q6HRS PRN PO HEADACHE/TEMP; Start 12/30/17 at 15:15 Aspirin (Children'S Aspirin) 81 mg DAILY08 PO Last administered on 01/02/18 08: 50; Start 12/30/17 at 15:30 Atorvastatin Calcium (Lipitor) 10 mg QHS PO Last administered on 01/01/18 20:55 ; Start 12/30/17 at 21:00 Clonidine HCl (Catapres) 0.1 mg DAILY PO Last administered on 01/02/18 08:51; Start 12/30/17 at 15:30 Magnesium Hydroxide (Milk Of Magnesia) 800 mg PRN DAILY PRN PO CONSTIPATION; Start 12/30/17 at 15:15 Divalproex Sodium (Depakote) 250 mg QHS PO Last administered on 01/01/18 20:55 ; Start 12/30/17 at 21:00 Divalproex Sodium (Depakote) 500 mg DAILY PO Last administered on 01/02/18 08: 52; Start 12/31/17 at 09:00 Donepezil HCl (Aricept) 10 mg DAILY PO Last administered on 01/02/18 08:50; Start 12/30/17 at 15:30 Memantine (Namenda) 10 mg BID PO Last administered on 01/02/18 08:50; Start 12/30/17 at 15:30 Multivitamins (Thera M Plus) 1 tab DAILY PO Last administered on 01/02/18 08:51 ; Start 12/30/17 at 15:30 Labetalol HCl (Normodyne Iv Push) 20 mg PRN Q2HR PRN IVP HYPERTENSION, SEE COMMENTS Last administered on 01/01/18 03:41; Start 12/30/17 at 21:00 Ondansetron HCl (Zofran) 4 mg PRN Q6HRS PRN IV NAUSEA/VOMITING 1ST CHOICE; Start 12/30/17 at 21:00 Ondansetron HCl (Zofran Odt) 4 mg PRN Q6HRS PRN PO NAUSEA/VOMITING 1ST CHOICE PO; Start 12/30/17 at 21:00 Acetaminophen/ Hydrocodone Bitart (Lortab 5/325) 1 tab PRN Q4HRS PRN PO MODERATE PAIN; Start 12/30/17 at 21:00 Ibuprofen (Motrin) 400 mg PRN Q6HRS PRN PO INFLAMMATION; Start 12/30/17 at 21:00 Diphenhydramine HCl (Benadryl) 25 mg PRN QHS PRN PO INSOMNIA; Start 12/30/17 at 21:00 Cefpodoxime Proxetil (Vantin) 200 mg BID PO Last administered on 01/02/18at 08:50 ; Start 12/31/17 at 10:30 Active Scripts Active Reported Chlorhexidine Flavor (Chlorhexidine) 1 Ml Liquid 1 Ml MC Milk Of Magnesia (Magnesium Hydroxide) 400 Mg/5 Ml Oral.susp 800 Mg PO PRN PRN Acetaminophen 325 Mg Tablet 650 Mg PO PRN Q6HRS PRN Clonidine Hcl 0.1 Mg Tablet 0.1 Mg PO DAILY Depakote (Divalproex Sodium) 250 Mg Tablet.dr 250 Mg PO QHS Depakote (Divalproex Sodium) 500 Mg Tablet.dr 500 Mg PO DAILY Aricept (Donepezil Hcl) 10 Mg Tablet 1 Tab PO DAILY Namenda Xr (Memantine Hcl) 28 Mg Cap.spr.24 28 Mg PO DAILY Lipitor (Atorvastatin Calcium) 10 Mg Tablet 1 Tab PO QHS Children's Aspirin (Aspirin) 81 Mg Tab.chew 81 Mg PO DAILY Multi-Vitamin Daily (Multivitamin) 1 Each Tablet 1 Each PO DAILY Vitals/I & O Vital Sign - Last 24 Hours 01/01/18 01/01/18 01/01/18 01/01/18 11:30 15:13 19:10 23:00 Temp 96.6 97.6 97.5 96.6 97.6 97.5 Pulse 94 70 71 Resp 16 16 16 B/P (MAP) 117/90 (99) 124/83 (97) 160/87 (111) Pulse Ox 97 97 97 O2 Delivery Room Air Room Air Room Air Room Air 01/02/18 01/02/18 01/02/18 01/02/18 03:00 07:00 08:30 08:51 Temp 97.7 98.0 97.7 98.0 Pulse 77 78 78 Resp 16 18 B/P (MAP) 150/91 (110) 149/79 (102) 149/79 Pulse Ox 98 100 O2 Delivery Room Air Room Air Room Air Intake and Output 01/01/18 01/01/18 01/02/18 15:00 23:00 07:00 Intake Total 1000 ml 360 ml Balance 1000 ml 360 ml ITA VALDES MD Jan 02, 2018 11:17
--- NOTE | 2018-01-02 18:22 | PDOC3 ---
Discharge Summary Date of Admission: Dec 29, 2017 Date of Discharge: Jan 02, 2018 Follow-Up: 1-2 days Admitting Diagnosis comment: Chief Complaint Chief Complaint IMPRESSION UTI w/ sepsis Leukocytosis Metabolic encephalopathy Advanced dementia HLD HTN Weakness Hx PEG tube, was reversed EATING WELL ACCORDING TO RN, 50% OF MEALS TODAY D/C TO [facility] History of Present Illness History of Present Illness Pt. seen and examined Pt. awake VSS DW nursing Pt. on ppn (IV ProcalAmine) and receiving thickened liquids Vitals Vitals Vital Signs Date Time Temp Pulse Resp B/P (MAP) Pulse Ox O2 Delivery O2 Flow Rate FiO2 01/02/18 08:51 78 149/79 01/02/18 08:30 Room Air 01/02/18 07:00 98.0 18 100 98.0 Physical Exam General: Alert, No acute distress, Other (confused to details) Heart: Regular rate, Normal S1, Normal S2, No murmurs Lungs: Clear Abdomen: Normal bowel sounds, Soft NONTENDER Extremities: No clubbing, No cyanosis, No edema Skin: No rashes, No breakdown FINAL DIAGNOSIS Problems Medical Problems: (1) Sepsis Status: Acute (2) UTI (urinary tract infection) Status: Acute Brief Hospital Course Mr. Lemus is a 72 old [sex] who presented with [ ] CONDITION AT DISCHARGE: Improved Discharge Medications Current Medications Acetaminophen (Tylenol) 1,000 mg 1X ONCE PO Last administered on 12/29/17at 00: 23; Start 12/28/17 at 23:30; Stop 12/28/17 at 23:31; Status DC Sodium Chloride 1,000 ml @ 1,000 mls/hr Q1H IV Last administered on 12/29/17at 00:24; Start 12/28/17 at 23:30; Stop 12/29/17 at 00:29; Status DC Ceftriaxone Sodium 50 ml @ 100 mls/hr 1X ONCE IV Last administered on at 23:30; Start 12/28/17 at 23:30; Stop 12/28/17 at 23:59; Status DC Sodium Chloride 1,000 ml @ 1,000 mls/hr 1X ONCE IV Last administered on at 00:58; Start 12/29/17 at 01:00; Stop 12/29/17 at 01:59; Status DC Sodium Chloride 1,000 ml @ 1,000 mls/hr 1X ONCE IV Last administered on at 00:58; Start 12/29/17 at 01:00; Stop 12/29/17 at 01:59; Status DC Ringer's Solution 1,000 ml @ 125 mls/hr 1X ONCE IV Last administered on at 03:03; Start 12/29/17 at 02:00; Stop 12/29/17 at 09:59; Status DC Amino Acids/ Glycerin/ Electrolytes 1,000 ml @ 75 mls/hr [id number] IV Last administered on 01/02/18at 09:15; Start 12/29/17 at 11:15 Ceftriaxone Sodium 1 gm/ Dextrose 50 ml @ 100 mls/hr Q24H IV ; Start 12/29/17 at 11:15; Status UNV Ceftriaxone Sodium (Rocephin) 1 gm Q24H IVP Last administered on 12/30/17at 21:25 ; Start 12/29/17 at 21:00; Stop 12/31/17 at 10:27; Status DC Lactobacillus Rhamnosus (Culturelle) 1 cap BID PO Last administered on at 08:51; Start 12/29/17 at 21:00 Acetaminophen (Tylenol) 650 mg PRN Q6HRS PRN PO HEADACHE/TEMP; Start 12/30/17 at 15:15 Aspirin (Children'S Aspirin) 81 mg DAILY08 PO Last administered on 01/02/18at 08: 50; Start 12/30/17 at 15:30 Atorvastatin Calcium (Lipitor) 10 mg QHS PO Last administered on 01/01/18at 20:55 ; Start 12/30/17 at 21:00 Clonidine HCl (Catapres) 0.1 mg DAILY PO Last administered on 01/02/18at 08:51; Start 12/30/17 at 15:30 Magnesium Hydroxide (Milk Of Magnesia) 800 mg PRN DAILY PRN PO CONSTIPATION; Start 12/30/17 at 15:15 Divalproex Sodium (Depakote) 250 mg QHS PO Last administered on 01/01/18at 20:55 ; Start 12/30/17 at 21:00 Divalproex Sodium (Depakote) 500 mg DAILY PO Last administered on 01/02/18at 08: 52; Start 12/31/17 at 09:00 Donepezil HCl (Aricept) 10 mg DAILY PO Last administered on 01/02/18 08:50; Start 12/30/17 at 15:30 Memantine (Namenda) 10 mg BID PO Last administered on 01/02/18 08:50; Start 12/30/17 at 15:30 Multivitamins (Thera M Plus) 1 tab DAILY PO Last administered on 01/02/18at 08:51 ; Start 12/30/17 at 15:30 Labetalol HCl (Normodyne Iv Push) 20 mg PRN Q2HR PRN IVP HYPERTENSION, SEE COMMENTS Last administered on 01/01/18at 03:41; Start 12/30/17 at 21:00 Ondansetron HCl (Zofran) 4 mg PRN Q6HRS PRN IV NAUSEA/VOMITING 1ST CHOICE; Start 12/30/17 at 21:00 Ondansetron HCl (Zofran Odt) 4 mg PRN Q6HRS PRN PO NAUSEA/VOMITING 1ST CHOICE PO; Start 12/30/17 at 21:00 Acetaminophen/ Hydrocodone Bitart (Lortab 5/325) 1 tab PRN Q4HRS PRN PO MODERATE PAIN; Start 12/30/17 at 21:00 Ibuprofen (Motrin) 400 mg PRN Q6HRS PRN PO INFLAMMATION; Start 12/30/17 at 21:00 Diphenhydramine HCl (Benadryl) 25 mg PRN QHS PRN PO INSOMNIA; Start 12/30/17 at 21:00 Cefpodoxime Proxetil (Vantin) 200 mg BID PO Last administered on 01/02/18at 08:50 ; Start 12/31/17 at 10:30 Active Scripts Active Reported Chlorhexidine Flavor (Chlorhexidine) 1 Ml Liquid 1 Ml MC Milk Of Magnesia (Magnesium Hydroxide) 400 Mg/5 Ml Oral.susp 800 Mg PO PRN PRN Acetaminophen 325 Mg Tablet 650 Mg PO PRN Q6HRS PRN Clonidine Hcl 0.1 Mg Tablet 0.1 Mg PO DAILY Depakote (Divalproex Sodium) 250 Mg Tablet.dr 250 Mg PO QHS Depakote (Divalproex Sodium) 500 Mg Tablet.dr 500 Mg PO DAILY Aricept (Donepezil Hcl) 10 Mg Tablet 1 Tab PO DAILY Namenda Xr (Memantine Hcl) 28 Mg Cap.spr.24 28 Mg PO DAILY Lipitor (Atorvastatin Calcium) 10 Mg Tablet 1 Tab PO QHS Children's Aspirin (Aspirin) 81 Mg Tab.chew 81 Mg PO DAILY Multi-Vitamin Daily (Multivitamin) 1 Each Tablet 1 Each PO DAILY Vital Signs Vital Signs Date Time Temp Pulse Resp B/P (MAP) Pulse Ox O2 Delivery O2 Flow Rate FiO2 01/02/18 15:00 98.4 76 18 104/60 (75) 98 Room Air 98.4 Labs Laboratory Tests Test 01/01/18 04:47 01/02/18 03:40 White Blood Count 11.4 x10^3/uL (4.0-11.0) 10.4 x10^3/uL (4.0-11.0) Red Blood Count 4.58 x10^6/uL (4.30-5.70) 4.58 x10^6/uL (4.30-5.70) Hemoglobin 13.1 g/dL (13.0-17.5) 13.1 g/dL (13.0-17.5) Hematocrit 38.6 % (39.0-53.0) 39.6 % (39.0-53.0) Mean Corpuscular Volume 84 fL (79-100) 86 fL (79-100) Mean Corpuscular Hemoglobin 29 pg (25-35) 29 pg (25-35) Mean Corpuscular Hemoglobin Concent 34 g/dL (31-37) 33 g/dL (31-37) Red Cell Distribution Width 13.5 % (11.5-14.5) 13.8 % (11.5-14.5) Platelet Count 240 x10^3/uL (140-400) 244 x10^3/uL (140-400) Neutrophils (%) (Auto) 81 % (31-73) 71 % (31-73) Lymphocytes (%) (Auto) 10 % (24-48) 17 % (24-48) Monocytes (%) (Auto) 5 % (0-9) 6 % (0-9) Eosinophils (%) (Auto) 4 % (0-3) 6 % (0-3) Basophils (%) (Auto) 0 % (0-3) 0 % (0-3) Neutrophils # (Auto) 9.2 x10^3uL (1.8-7.7) 7.4 x10^3uL (1.8-7.7) Lymphocytes # (Auto) 1.1 x10^3/uL (1.0-4.8) 1.8 x10^3/uL (1.0-4.8) Monocytes # (Auto) 0.5 x10^3/uL (0.0-1.1) 0.6 x10^3/uL (0.0-1.1) Eosinophils # (Auto) 0.5 x10^3/uL (0.0-0.7) 0.6 x10^3/uL (0.0-0.7) Basophils # (Auto) 0.0 x10^3/uL (0.0-0.2) 0.0 x10^3/uL (0.0-0.2) Sodium Level 140 mmol/L (136-145) 140 mmol/L (136-145) Potassium Level 3.6 mmol/L (3.5-5.1) 4.2 mmol/L (3.5-5.1) Chloride Level 106 mmol/L (98-107) 105 mmol/L (98-107) Carbon Dioxide Level 25 mmol/L (21-32) 26 mmol/L (21-32) Anion Gap 9 (6-14) 9 (6-14) Blood Urea Nitrogen 14 mg/dL (8-26) 18 mg/dL (8-26) Creatinine 1.1 mg/dL (0.7-1.3) 1.1 mg/dL (0.7-1.3) Estimated GFR (Cockcroft-Gault) 79.6 79.6 Glucose Level 103 mg/dL (70-99) 82 mg/dL (70-99) Calcium Level 9.1 mg/dL (8.5-10.1) 8.9 mg/dL (8.5-10.1) Laboratory Tests Test 01/02/18 03:40 White Blood Count 10.4 x10^3/uL (4.0-11.0) Red Blood Count 4.58 x10^6/uL (4.30-5.70) Hemoglobin 13.1 g/dL (13.0-17.5) Hematocrit 39.6 % (39.0-53.0) Mean Corpuscular Volume 86 fL (79-100) Mean Corpuscular Hemoglobin 29 pg (25-35) Mean Corpuscular Hemoglobin Concent 33 g/dL (31-37) Red Cell Distribution Width 13.8 % (11.5-14.5) Platelet Count 244 x10^3/uL (140-400) Neutrophils (%) (Auto) 71 % (31-73) Lymphocytes (%) (Auto) 17 % (24-48) Monocytes (%) (Auto) 6 % (0-9) Eosinophils (%) (Auto) 6 % (0-3) Basophils (%) (Auto) 0 % (0-3) Neutrophils # (Auto) 7.4 x10^3uL (1.8-7.7) Lymphocytes # (Auto) 1.8 x10^3/uL (1.0-4.8) Monocytes # (Auto) 0.6 x10^3/uL (0.0-1.1) Eosinophils # (Auto) 0.6 x10^3/uL (0.0-0.7) Basophils # (Auto) 0.0 x10^3/uL (0.0-0.2) Sodium Level 140 mmol/L (136-145) Potassium Level 4.2 mmol/L (3.5-5.1) Chloride Level 105 mmol/L (98-107) Carbon Dioxide Level 26 mmol/L (21-32) Anion Gap 9 (6-14) Blood Urea Nitrogen 18 mg/dL (8-26) Creatinine 1.1 mg/dL (0.7-1.3) Estimated GFR (Cockcroft-Gault) 79.6 Glucose Level 82 mg/dL (70-99) Calcium Level 8.9 mg/dL (8.5-10.1) Allergies Allergies Coded Allergies Type Severity Reaction Last Updated Verified I S O L A T I O N *CONTACT* Allergy Unknown 01/02/18 Yes No Known Medication Allergies Allergy Unknown 01/02/18 Yes Disposition/Orders: Other (TO SNF BED) Patient Instructions D/C PLANNING 38 MIN ITA VALDES MD Jan 02, 2018 18:22
--- NOTE | 2018-01-02 18:25 | DISCH ---
DISCHARGE DISCHARGE INFORMATION: FINAL DIAGNOSIS Problems Medical Problems: (1) Sepsis Status: Acute (2) UTI (urinary tract infection) Status: Acute CONDITION ON DISCHARGE: Stable CODE STATUS: Code Status: DNR/DNI PENITENTIARY: SNF STAY <30 DAYS: Yes HOSPICE: HOSPICE: No HOSPICE EVAL & TREAT: No POST DISCHARGE ORDERS: ACTIVITY ORDERS: Activity as tolerated WEIGHT BEARING STATUS: No restrictions DIET AFTER DISCHARGE: Cardiac CHECKS AFTER DISCHARGE: CHECKS AFTER DISCHARGE: Check blood press - daily TREATMENT/EQUIPMENT ORDERS: ADAPTIVE EQUIPMENT NEEDED: None Physical Therapy For: Evalulation/Treatment Occupational Therapy For: Evaluation/Treatment Speech Language Pathology For: Evaluation/Treatment DISCHARGE MEDICATIONS: Home Meds Reported Medications Chlorhexidine (CHLORHEXIDINE FLAVOR) 1 Ml Liquid, 1 ML MC, LIQUID 06/06/16 Magnesium Hydroxide (MILK OF MAGNESIA) 400 Mg/5 Ml Oral.susp, 800 MG PO PRN PRN for CONSTIPATION 06/06/16 Acetaminophen (ACETAMINOPHEN) 325 Mg Tablet, 650 MG PO PRN Q6HRS PRN for PAIN 06/06/16 Clonidine Hcl (CLONIDINE HCL) 0.1 Mg Tablet, 0.1 MG PO DAILY, TAB 06/06/16 Divalproex Sodium (DEPAKOTE) 250 Mg Tablet.dr, 250 MG PO QHS, TAB 06/06/16 Divalproex Sodium (DEPAKOTE) 500 Mg Tablet.dr, 500 MG PO DAILY, TAB 06/06/16 Donepezil Hcl (ARICEPT) 10 Mg Tablet, 1 TAB PO DAILY, #90 TAB 3 Refills 06/06/16 Memantine Hcl (NAMENDA XR) 28 Mg Cap.spr.24, 28 MG PO DAILY, TAB.SR 06/06/16 Atorvastatin Calcium (LIPITOR) 10 Mg Tablet, 1 TAB PO QHS, #90 TAB 1 Refill 06/06/16 Aspirin (Children's Aspirin) 81 Mg Tab.chew, 81 MG PO DAILY, TAB.CHEW 09/11/13 Multivitamin (MULTI-VITAMIN DAILY) 1 Each Tablet, 1 EACH PO DAILY 09/11/13 ITA VALDES MD Jan 02, 2018 18:25
[2018-01-02] MEDS ORDERED: CEFP100T PO (18:27)
[2018-01-02] MEDS: DIVALPROEX DELAYED RELEASE 250 MG TABLET.DR. PO SCH (20:56)
[2018-01-02] MEDS: ATORVASTATIN CALCIUM 10 MG TABLET. PO SCH (20:56)
[2018-01-03 03:00] VITALS: BP 157/88
--- NOTE | 2018-01-03 04:53 | PDOC ---
PROGRESS NOTES Chief Complaint Chief Complaint IMPRESSION UTI w/ sepsis Leukocytosis Metabolic encephalopathy Advanced dementia HLD HTN Weakness Hx PEG tube, was reversed EATING WELL ACCORDING TO RN, 50% OF MEALS TODAY D/C TO [facility] History of Present Illness History of Present Illness Pt. seen and examined Pt. awake VSS DW nursing Pt. on ppn (IV ProcalAmine) and receiving thickened liquids Vitals Vitals Vital Signs Date Time Temp Pulse Resp B/P (MAP) Pulse Ox O2 Delivery O2 Flow Rate FiO2 01/03/18 03:00 97.9 76 18 157/88 (111) 97 Room Air 97.9 Physical Exam General: Alert, Cooperative, No acute distress, Other (confused to details) Heart: Regular rate, Normal S1, Normal S2, No murmurs Lungs: Clear Abdomen: Normal bowel sounds, Soft Extremities: No clubbing, No cyanosis, No edema Skin: No rashes, No breakdown Assessment and Plan Assessmemt and Plan Problems Medical Problems: (1) Sepsis Status: Acute (2) UTI (urinary tract infection) Status: Acute Comment Review of Relevant I have reviewed the following items grisel (where applicable) has been applied. Labs Laboratory Tests Test 01/02/18 03:40 White Blood Count 10.4 x10^3/uL (4.0-11.0) Red Blood Count 4.58 x10^6/uL (4.30-5.70) Hemoglobin 13.1 g/dL (13.0-17.5) Hematocrit 39.6 % (39.0-53.0) Mean Corpuscular Volume 86 fL (79-100) Mean Corpuscular Hemoglobin 29 pg (25-35) Mean Corpuscular Hemoglobin Concent 33 g/dL (31-37) Red Cell Distribution Width 13.8 % (11.5-14.5) Platelet Count 244 x10^3/uL (140-400) Neutrophils (%) (Auto) 71 % (31-73) Lymphocytes (%) (Auto) 17 % (24-48) Monocytes (%) (Auto) 6 % (0-9) Eosinophils (%) (Auto) 6 % (0-3) Basophils (%) (Auto) 0 % (0-3) Neutrophils # (Auto) 7.4 x10^3uL (1.8-7.7) Lymphocytes # (Auto) 1.8 x10^3/uL (1.0-4.8) Monocytes # (Auto) 0.6 x10^3/uL (0.0-1.1) Eosinophils # (Auto) 0.6 x10^3/uL (0.0-0.7) Basophils # (Auto) 0.0 x10^3/uL (0.0-0.2) Sodium Level 140 mmol/L (136-145) Potassium Level 4.2 mmol/L (3.5-5.1) Chloride Level 105 mmol/L (98-107) Carbon Dioxide Level 26 mmol/L (21-32) Anion Gap 9 (6-14) Blood Urea Nitrogen 18 mg/dL (8-26) Creatinine 1.1 mg/dL (0.7-1.3) Estimated GFR (Cockcroft-Gault) 79.6 Glucose Level 82 mg/dL (70-99) Calcium Level 8.9 mg/dL (8.5-10.1) Microbiology 12/29/17 Urine Culture - Final, Complete 12/29/17 Urine Culture Result 1 (NUZHAT) - Final, Complete 12/29/17 Antimicrobic Susceptibility - Final, Complete Medications Current Medications Acetaminophen (Tylenol) 1,000 mg 1X ONCE PO Last administered on 12/29/17at 00: 23; Start 12/28/17 at 23:30; Stop 12/28/17 at 23:31; Status DC Sodium Chloride 1,000 ml @ 1,000 mls/hr Q1H IV Last administered on 12/29/17at 00:24; Start 12/28/17 at 23:30; Stop 12/29/17 at 00:29; Status DC Ceftriaxone Sodium 50 ml @ 100 mls/hr 1X ONCE IV Last administered on at 23:30; Start 12/28/17 at 23:30; Stop 12/28/17 at 23:59; Status DC Sodium Chloride 1,000 ml @ 1,000 mls/hr 1X ONCE IV Last administered on at 00:58; Start 12/29/17 at 01:00; Stop 12/29/17 at 01:59; Status DC Sodium Chloride 1,000 ml @ 1,000 mls/hr 1X ONCE IV Last administered on at 00:58; Start 12/29/17 at 01:00; Stop 12/29/17 at 01:59; Status DC Ringer's Solution 1,000 ml @ 125 mls/hr 1X ONCE IV Last administered on at 03:03; Start 12/29/17 at 02:00; Stop 12/29/17 at 09:59; Status DC Amino Acids/ Glycerin/ Electrolytes 1,000 ml @ 75 mls/hr [id number] IV Last administered on 01/02/18at 20:57; Start 12/29/17 at 11:15 Ceftriaxone Sodium 1 gm/ Dextrose 50 ml @ 100 mls/hr Q24H IV ; Start 12/29/17 at 11:15; Status UNV Ceftriaxone Sodium (Rocephin) 1 gm Q24H IVP Last administered on 12/30/17at 21:25 ; Start 12/29/17 at 21:00; Stop 12/31/17 at 10:27; Status DC Lactobacillus Rhamnosus (Culturelle) 1 cap BID PO Last administered on 20:56; Start 12/29/17 at 21:00 Acetaminophen (Tylenol) 650 mg PRN Q6HRS PRN PO HEADACHE/TEMP; Start 12/30/17 at 15:15 Aspirin (Children'S Aspirin) 81 mg DAILY08 PO Last administered on 01/02/18 08: 50; Start 12/30/17 at 15:30 Atorvastatin Calcium (Lipitor) 10 mg QHS PO Last administered on 01/02/18 20:56 ; Start 12/30/17 at 21:00 Clonidine HCl (Catapres) 0.1 mg DAILY PO Last administered on 01/02/18at 08:51; Start 12/30/17 at 15:30 Magnesium Hydroxide (Milk Of Magnesia) 800 mg PRN DAILY PRN PO CONSTIPATION; Start 12/30/17 at 15:15 Divalproex Sodium (Depakote) 250 mg QHS PO Last administered on 01/02/18 20:56 ; Start 12/30/17 at 21:00 Divalproex Sodium (Depakote) 500 mg DAILY PO Last administered on 01/02/18 08: 52; Start 12/31/17 at 09:00 Donepezil HCl (Aricept) 10 mg DAILY PO Last administered on 01/02/18 08:50; Start 12/30/17 at 15:30 Memantine (Namenda) 10 mg BID PO Last administered on 01/02/18 20:56; Start 12/30/17 at 15:30 Multivitamins (Thera M Plus) 1 tab DAILY PO Last administered on 01/02/18 08:51 ; Start 12/30/17 at 15:30 Labetalol HCl (Normodyne Iv Push) 20 mg PRN Q2HR PRN IVP HYPERTENSION, SEE COMMENTS Last administered on 01/01/18 03:41; Start 12/30/17 at 21:00 Ondansetron HCl (Zofran) 4 mg PRN Q6HRS PRN IV NAUSEA/VOMITING 1ST CHOICE; Start 12/30/17 at 21:00 Ondansetron HCl (Zofran Odt) 4 mg PRN Q6HRS PRN PO NAUSEA/VOMITING 1ST CHOICE PO; Start 12/30/17 at 21:00 Acetaminophen/ Hydrocodone Bitart (Lortab 5/325) 1 tab PRN Q4HRS PRN PO MODERATE PAIN; Start 12/30/17 at 21:00 Ibuprofen (Motrin) 400 mg PRN Q6HRS PRN PO INFLAMMATION; Start 12/30/17 at 21:00 Diphenhydramine HCl (Benadryl) 25 mg PRN QHS PRN PO INSOMNIA; Start 12/30/17 at 21:00 Cefpodoxime Proxetil (Vantin) 200 mg BID PO Last administered on 01/02/18at 20:56 ; Start 12/31/17 at 10:30 Active Scripts Active Cefpodoxime Proxetil 100 Mg Tablet 200 Mg PO BID 10 Days Reported Chlorhexidine Flavor (Chlorhexidine) 1 Ml Liquid 1 Ml MC Milk Of Magnesia (Magnesium Hydroxide) 400 Mg/5 Ml Oral.susp 800 Mg PO PRN PRN Acetaminophen 325 Mg Tablet 650 Mg PO PRN Q6HRS PRN Clonidine Hcl 0.1 Mg Tablet 0.1 Mg PO DAILY Depakote (Divalproex Sodium) 250 Mg Tablet.dr 250 Mg PO QHS Depakote (Divalproex Sodium) 500 Mg Tablet.dr 500 Mg PO DAILY Aricept (Donepezil Hcl) 10 Mg Tablet 1 Tab PO DAILY Namenda Xr (Memantine Hcl) 28 Mg Cap.spr.24 28 Mg PO DAILY Lipitor (Atorvastatin Calcium) 10 Mg Tablet 1 Tab PO QHS Children's Aspirin (Aspirin) 81 Mg Tab.chew 81 Mg PO DAILY Multi-Vitamin Daily (Multivitamin) 1 Each Tablet 1 Each PO DAILY Vitals/I & O Vital Sign - Last 24 Hours 01/02/18 01/02/18 01/02/18 01/02/18 07:00 08:30 08:51 11:00 Temp 98.0 98.5 98.0 98.5 Pulse 78 78 109 Resp 18 18 B/P (MAP) 149/79 (102) 149/79 136/92 (107) Pulse Ox 100 98 O2 Delivery Room Air Room Air Room Air 01/02/18 01/02/18 01/02/18 01/02/18 15:00 19:00 19:05 23:00 Temp 98.4 97.9 97.9 98.4 97.9 97.9 Pulse 76 89 77 Resp 18 18 18 B/P (MAP) 104/60 (75) 149/95 (113) 155/94 (114) Pulse Ox 98 98 97 O2 Delivery Room Air Room Air Room Air Room Air 01/03/18 03:00 Temp 97.9 97.9 Pulse 76 Resp 18 B/P (MAP) 157/88 (111) Pulse Ox 97 O2 Delivery Room Air Intake and Output 01/02/18 01/02/18 01/03/18 15:00 23:00 07:00 Intake Total 100 ml 1400 ml 120 ml Balance 100 ml 1400 ml 120 ml ITA VALDES MD Jan 03, 2018 04:53
[2018-01-03 07:00] VITALS: BP 148/103
[2018-01-03] MEDS: ASPIRIN CHEWABLE 81 MG TABLET. PO SCH ×2 (08:00→09:03)
[2018-01-03 08:34] LABS: BASO % 0 % (0-3); EOS # 0.6 x10^3/uL (0.0-0.7); EOS % 6 % (0-3); HEMATOCRIT 37.9 % (39.0-53.0); HEMOGLOBIN 12.8 g/dL (13.0-17.5); LYMPH # 1.4 x10^3/uL (1.0-4.8); LYMPH % 14 % (24-48); MEAN CORPUSCULAR HEMOGLOBIN 29 pg (25-35); MEAN CORPUSCULAR HGB CONC 34 g/dL (31-37); MEAN CORPUSCULAR VOLUME 85 fL (79-100); MONO # 0.6 x10^3/uL (0.0-1.1); MONO % 6 % (0-9); NEUT # 7.3 x10^3uL (1.8-7.7); NEUT % 74 % (31-73); PLATELET COUNT 255 x10^3/uL (140-400); RED BLOOD COUNT 4.47 x10^6/uL (4.30-5.70); RED CELL DISTRIBUTION WIDTH 13.8 % (11.5-14.5); WHITE BLOOD COUNT 9.9 x10^3/uL (4.0-11.0)
[2018-01-03 08:50] LABS: CREATININE 1.1 mg/dL (0.7-1.3); GFR 79.6; POTASSIUM 4.1 mmol/L (3.5-5.1)
[2018-01-03] MEDS: DONEPEZIL HCL 10 MG TABLET. PO SCH ×2 (09:00→09:03)
[2018-01-03] MEDS: MEMANTINE 10 MG TABLET. PO SCH ×2 (09:00→09:02)
[2018-01-03] MEDS: cloNIDine HCL 0.1 MG TABLET PO SCH ×2 (09:00→09:03)
[2018-01-03] MEDS: LACTOBACILLUS RHAMNOSUS GG 1 CAPSULE. PO SCH ×2 (09:00→09:02)
[2018-01-03] MEDS: MULTIVITAMIN with MINERAL TABLET. PO SCH ×2 (09:00→09:03)
[2018-01-03] MEDS: DIVALPROEX DELAYED RELEASE 500 MG TABLET.DR. PO SCH ×2 (09:00→09:02)
[2018-01-03] MEDS: CEFPODOXIME PROXETIL 100 MG TABLET. PO SCH ×2 (09:00→09:03)
[2018-01-03] MEDS: AMINO AC 3%/ELECTROLYTE/GLYCER 1,000 ML IV SCH (09:01)
[2018-01-03 11:00] VITALS: BP 152/91
[2018-01-03 11:13] VITALS: BP 159/103
[2018-01-03] MEDS: LABETALOL 20 MG/4 ML DISP.SYRIN. IVP PRN (11:13)
== END 2018-01-03 13:02 | DRG 871 ==
LOC: ER 22:49 → 5 NORTH 12-29 00:30
PROVIDERS: ADMIT Internal Medicine; ATTEND Internal Medicine
DX: A41.9 Sepsis, unspecified organism (principal); G93.41 Metabolic encephalopathy; N39.0 Urinary tract infection, site not specified; I10 Essential (primary) hypertension; F03.90 Unspecified dementia, unspecified severity, without behavioral disturbance, psychotic disturbance, mood disturbance, and anxiety; E78.00 Pure hypercholesterolemia, unspecified; M19.90 Unspecified osteoarthritis, unspecified site; Z93.1 Gastrostomy status; E78.5 Hyperlipidemia, unspecified; Z82.49 Family history of ischemic heart disease and other diseases of the circulatory system
CPT/HCPCS: 36415; 71045; 80048; 80053; 80164; 81001; 82553; 83605; 83690; 83735; 83880; 84439; 84443; 84484; 85007; 85025; 87086; 87186; 87641; 93005; 96365; J0690; J0696; J3490; J7030; J7120; 99285-25

== ENCOUNTER 2018-01-15 19:42 | Inpatient (IN) | payer MEDICARE, OTHER ==
[~2018-01-15] VITALS: Ht 165.1 cm; Wt 56.3 kg
[~2018-01-15 19:42] MED LIST changes: +CEFP100T PO
[2018-01-15] MEDS ORDERED: IV NORMAL SALINE 1000ML BAG 1,000 ML IV ONE (20:30)
[2018-01-15 21:14] LABS: BASO # 0.1 x10^3/uL (0.0-0.2); BASO % 1 % (0-3); EOS # 0.7 x10^3/uL (0.0-0.7); EOS % 6 % (0-3); HEMATOCRIT 42.2 % (39.0-53.0); HEMOGLOBIN 14.2 g/dL (13.0-17.5); LYMPH # 1.9 x10^3/uL (1.0-4.8); LYMPH % 18 % (24-48); MEAN CORPUSCULAR HEMOGLOBIN 29 pg (25-35); MEAN CORPUSCULAR HGB CONC 34 g/dL (31-37); MEAN CORPUSCULAR VOLUME 87 fL (79-100); MONO # 0.8 x10^3/uL (0.0-1.1); MONO % 8 % (0-9); NEUT # 7.1 x10^3uL (1.8-7.7); NEUT % 67 % (31-73); PLATELET COUNT 253 x10^3/uL (140-400); RED BLOOD COUNT 4.87 x10^6/uL (4.30-5.70); RED CELL DISTRIBUTION WIDTH 13.8 % (11.5-14.5); WHITE BLOOD COUNT 10.5 x10^3/uL (4.0-11.0)
--- NOTE | 2018-01-15 21:15 | RAD ---
CT scan of the head without contrast 01/15/2018 Clinical History: Altered mental status. Technique: Unenhanced, contiguous, 5 mm axial sections were obtained through the head. Findings: Comparison study is dated 03/27/2014. There is generalized parenchymal atrophy. Areas of decreased attenuation are seen within the periventricular and subcortical white matter of both cerebral hemispheres consistent with areas of small vessel ischemic disease. No acute parenchymal abnormality is seen. No extra-axial fluid collection is noted. No skull fracture is seen. Impression: No acute intracranial abnormality is seen. Electronically signed by: Los Benjamin MD (01/15/2018 9:12 PM) [facility]
[2018-01-15 21:22] LABS: PROTHROMBIN TIME PATIENT 14.6 SEC (11.7-14.0)
[2018-01-15 21:27] LABS: CALCIUM 9.2 mg/dL (8.5-10.1); CREATININE 1.4 mg/dL (0.7-1.3); GFR 60.3; POTASSIUM 3.8 mmol/L (3.5-5.1)
[2018-01-15 21:29] LABS: VAL ACID 61 mcg/mL (50-100)
[2018-01-15 21:30] LABS: BILIRUBIN,URINE NEGATIVE (NEG); CLARITY,URINE CLOUDY; COLOR,URINE YELLOW; NITRITE,URINE NEGATIVE (NEG); PROTEIN,URINE NEGATIVE (NEG-TRACE)
[2018-01-15 21:37] LABS: AMORPHOUS SEDIMENT,UR PRESENT /HPF; BACTERIA,URINE FEW /HPF (0-FEW); SQUAMOUS EPITHELIAL CELL,UR FEW /LPF
[2018-01-15 21:39] LABS: BARBITURATES NEG (NEG); BENZODIAZEPINES NEG (NEG); CANNABINOIDS NEG (NEG); COCAINE NEG (NEG); METHADONE NEG (NEG); OPIATES NEG (NEG); PHENCYCLIDINE NEG (NEG)
[2018-01-15 21:41] LABS: ALBUMIN 3.2 g/dL (3.4-5.0); ALBUMIN/GLOBULIN RATIO 0.7 (1.0-1.7); MAGNESIUM 2.4 mg/dL (1.8-2.4); TOTAL BILIRUBIN 0.3 mg/dL (0.2-1.0); TOTAL PROTEIN 7.7 g/dL (6.4-8.2)
[2018-01-15 21:41] LABS: AMPHETAMINE/METHAMPHETAMINE NEG (NEG)
[2018-01-15 21:42] LABS: CREATINE KINASE 81 U/L (39-308)
--- NOTE | 2018-01-15 22:07 | EKG ---
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
--- NOTE | 2018-01-15 22:56 | PHYS DOC ---
Past Medical History Past Medical History: Dementia, High Cholesterol, Hypertension, Pneumonia Additional Past Medical Histor: PSYCHOSIS Past Surgical History: Other Additional Past Surgical Histo: UNKNOWN Alcohol Use: None Drug Use: None Adult General Chief Complaint Chief Complaint: MULTIPLE COMPLAINTS HPI HPI Patient is a 72 year old [f__sex] who presents with [] Review of Systems Review of Systems Constitutional: Denies fever or chills [] Eyes: Denies change in visual acuity, redness, or eye pain [] HENT: Denies nasal congestion or sore throat [] Respiratory: Denies cough or shortness of breath [] Cardiovascular: No additional information not addressed in HPI [] GI: Denies abdominal pain, nausea, vomiting, bloody stools or diarrhea [] : Denies dysuria or hematuria [] Musculoskeletal: Denies back pain or joint pain [] Integument: Denies rash or skin lesions [] Neurologic: Denies headache, focal weakness or sensory changes [] Endocrine: Denies polyuria or polydipsia [] All other systems were reviewed and found to be within normal limits, except as documented in this note. Current Medications Current Medications Current Medications Medications (Trade) Dose Ordered Sig/Renata Start Time Stop Time Status Last Admin Dose Admin Ceftriaxone Sodium 50 ml @ 100 mls/hr 1X ONCE 01/15/18 23:00 01/15/18 23:29 Nystatin (Nystatin Oral Susp) 5 ml 1X ONCE 01/15/18 23:00 01/15/18 23:01 Sodium Chloride 1,000 ml @ 1,000 mls/hr 1X ONCE 01/15/18 20:30 01/15/18 21:29 DC 01/15/18 20:30 1,000 MLS/HR Allergies Allergies Allergies Coded Allergies Type Severity Reaction Last Updated Verified I S O L A T I O N *CONTACT* Allergy Unknown 01/02/18 Yes No Known Medication Allergies Allergy Unknown 01/02/18 Yes Physical Exam Physical Exam Constitutional: Well developed, well nourished, no acute distress, non-toxic appearance. [] HENT: Normocephalic, atraumatic, bilateral external ears normal, oropharynx moist, no oral exudates, nose normal. [] Eyes: PERRLA, EOMI, conjunctiva normal, no discharge. [] Neck: Normal range of motion, no tenderness, supple, no stridor. [] Cardiovascular:Heart rate regular rhythm, no murmur [] Lungs & Thorax: Bilateral breath sounds clear to auscultation [] Abdomen: Bowel sounds normal, soft, no tenderness, no masses, no pulsatile masses. [] Skin: Warm, dry, no erythema, no rash. [] Back: No tenderness, no CVA tenderness. [] Extremities: No tenderness, no cyanosis, no clubbing, ROM intact, no edema. [] Neurologic: Alert and oriented X 3, normal motor function, normal sensory function, no focal deficits noted. [] Psychologic: Affect normal, judgement normal, mood normal. [] Current Patient Data Vital Signs Vital Signs Date Time Temp Pulse Resp B/P (MAP) Pulse Ox O2 Delivery O2 Flow Rate FiO2 01/15/18 21:29 97 18 136/81 (99) 99 01/15/18 19:42 98.7 Room Air 98.7 Lab Values Laboratory Tests Test 01/15/18 20:50 01/15/18 21:20 White Blood Count 10.5 x10^3/uL (4.0-11.0) Red Blood Count 4.87 x10^6/uL (4.30-5.70) Hemoglobin 14.2 g/dL (13.0-17.5) Hematocrit 42.2 % (39.0-53.0) Mean Corpuscular Volume 87 fL (79-100) Mean Corpuscular Hemoglobin 29 pg (25-35) Mean Corpuscular Hemoglobin Concent 34 g/dL (31-37) Red Cell Distribution Width 13.8 % (11.5-14.5) Platelet Count 253 x10^3/uL (140-400) Neutrophils (%) (Auto) 67 % (31-73) Lymphocytes (%) (Auto) 18 % (24-48) L Monocytes (%) (Auto) 8 % (0-9) Eosinophils (%) (Auto) 6 % (0-3) H Basophils (%) (Auto) 1 % (0-3) Neutrophils # (Auto) 7.1 x10^3uL (1.8-7.7) Lymphocytes # (Auto) 1.9 x10^3/uL (1.0-4.8) Monocytes # (Auto) 0.8 x10^3/uL (0.0-1.1) Eosinophils # (Auto) 0.7 x10^3/uL (0.0-0.7) Basophils # (Auto) 0.1 x10^3/uL (0.0-0.2) Prothrombin Time 14.6 SEC (11.7-14.0) H Prothrombin Time INR 1.2 (0.8-1.1) H PTT 27 SEC (24-38) Sodium Level 150 mmol/L (136-145) H Potassium Level 3.8 mmol/L (3.5-5.1) Chloride Level 112 mmol/L (98-107) H Carbon Dioxide Level 30 mmol/L (21-32) Anion Gap 8 (6-14) Blood Urea Nitrogen 16 mg/dL (8-26) Creatinine 1.4 mg/dL (0.7-1.3) H Estimated GFR (Cockcroft-Gault) 60.3 BUN/Creatinine Ratio 11 (6-20) Glucose Level 125 mg/dL (70-99) H Lactic Acid Level 2.0 mmol/L (0.4-2.0) Calcium Level 9.2 mg/dL (8.5-10.1) Magnesium Level 2.4 mg/dL (1.8-2.4) Total Bilirubin 0.3 mg/dL (0.2-1.0) Aspartate Amino Transferase (AST) 18 U/L (15-37) Alanine Aminotransferase (ALT) 19 U/L (16-63) Alkaline Phosphatase 79 U/L (46-116) Ammonia 17 mcmol/L (11-34) Creatine Kinase 81 U/L (39-308) Creatine Kinase MB (Mass) < 0.5 ng/mL (0.0-3.6) Creatine Kinase MB Relative Index % (0-4) Troponin I Quantitative < 0.017 ng/mL (0.000-0.055) Total Protein 7.7 g/dL (6.4-8.2) Albumin 3.2 g/dL (3.4-5.0) L Albumin/Globulin Ratio 0.7 (1.0-1.7) L Valproic Acid Level 61 mcg/mL (50-100) Valproic Acid Last Dose Date Valproic Acid Last Dose Time Urine Collection Type Void Urine Color Yellow Urine Clarity Cloudy Urine pH 5.0 Urine Specific [place] 1.025 Urine Protein Negative mg/dL (NEG-TRACE) Urine Glucose (UA) Negative mg/dL (NEG) Urine Ketones (Stick) Trace mg/dL (NEG) Urine Blood Large (NEG) Urine Nitrite Negative (NEG) Urine Bilirubin Negative (NEG) Urine Urobilinogen Dipstick 1.0 mg/dL (0.2 mg/dL) Urine Leukocyte Esterase Small (NEG) Urine RBC 3-5 /HPF (0-2) Urine WBC 5-10 /HPF (0-4) Urine Squamous Epithelial Cells Few /LPF Urine Amorphous Sediment Present /HPF Urine Bacteria Few /HPF (0-FEW) Urine Mucus Slight /LPF Urine Opiates Screen Neg (NEG) Urine Methadone Screen Neg (NEG) Urine Barbiturates Neg (NEG) Urine Phencyclidine Screen Neg (NEG) Urine Amphetamine/Methamphetamine Neg (NEG) Urine Benzodiazepines Screen Neg (NEG) Urine Cocaine Screen Neg (NEG) Urine Cannabinoids Screen Neg (NEG) Urine Ethyl Alcohol Neg (NEG) Laboratory Tests 01/15/18 20:50 Laboratory Tests 01/15/18 20:50 EKG EKG @2028 NSR at 100bpm, NO ST elevation, nonspecific t wave inversion to II-III and aVF Radiology/Procedures Radiology/Procedures PROCEDURE: CT HEAD WO CONTRAST ADDENDUM Addendum: One or more of the following individualized dose reduction techniques were utilized for this study: 1. Automated exposure control. 2. Adjustment of the mA and/or kV according to patient size. 3. Use of iterative reconstruction technique. Electronically signed by: Los Benjamin MD (01/15/2018 10:33 PM) [facility] DICTATED AND SIGNED BY: LOS BENJAMIN MD DATE: 01/15/18 2232 CC: ROSA HAIR; DEEPTI FRITZ DO ~ CT scan of the head without contrast 01/15/2018 Clinical History: Altered mental status. Technique: Unenhanced, contiguous, 5 mm axial sections were obtained through the head. Findings: Comparison study is dated 03/27/2014. There is generalized parenchymal atrophy. Areas of decreased attenuation are seen within the periventricular and subcortical white matter of both cerebral hemispheres consistent with areas of small vessel ischemic disease. No acute parenchymal abnormality is seen. No extra-axial fluid collection is noted. No skull fracture is seen. Impression: No acute intracranial abnormality is seen. Electronically signed by: Los Benjamin MD (01/15/2018 9:12 PM) [facility] AP Chest XR: (Preliminary interpretation by ED physician): No focal infiltration, mildly prominent lung markings appreciated Course & Med Decision Making Course & Med Decision Making Pertinent Labs and Imaging studies reviewed. (See chart for details) [] Dragon Disclaimer Dragon Disclaimer This electronic medical record was generated, in whole or in part, using a voice recognition dictation system. Departure Departure Impression: Primary Impression: Altered mental status Additional Impressions: UTI (urinary tract infection) Hypernatremia Acute renal insufficiency Thrush Disposition: 09 ADMITTED INPATIENT Admitting Physician: Xie. Renner Condition: STABLE Referrals: ROSA HAIR (PCP) Problem Qualifiers Primary Impression: Altered mental status Altered mental status type: unspecified Qualified Codes: R41.82 - Altered mental status, unspecified Additional Impressions: UTI (urinary tract infection) Urinary tract infection type: site unspecified Hematuria presence: without hematuria Qualified Codes: N39.0 - Urinary tract infection, site not specified DEEPTI FRITZ DO Jan 15, 2018 22:56
[2018-01-15] MEDS ORDERED: ONDANSETRON PF 4 MG/2 ML VIAL. IV PRN (23:00)
[2018-01-15] MEDS ORDERED: NYSTATIN 100,000 UNITS/ML 5 ML ORAL.SUSP. SWSW ONE (23:00)
[2018-01-16] VITALS (7 sets, daily range): BP systolic 130–162; BP diastolic 78–87
--- NOTE | 2018-01-16 00:15 | RAD ---
AP portable chest radiograph 01/15/2018 Clinical History: Altered mental status. History of shortness of breath and pneumonia.. An AP erect portable digital radiograph of the chest was obtained. Comparison study is dated 12/28/2017. The cardiac silhouette is mildly enlarged. There is left ventricular prominence. The thoracic aorta is tortuous. No acute pulmonary infiltrate is seen. No pleural effusion or pneumothorax is noted. Degenerative changes are seen involving the thoracic spine and both shoulders. Impression: No acute abnormality is seen. Electronically signed by: Los Benjamin MD (01/16/2018 12:11 AM) [facility]
[2018-01-16] MEDS ORDERED: cefTRIAXone IV Push 1 GM VIAL. IVP ONE (07:00)
[2018-01-16] MEDS ORDERED: ACETAMINOPHEN 500 MG TABLET PO PRN (09:45)
[2018-01-16] MEDS ORDERED: ACETAMINOPHEN 325 MG TABLET. PO PRN (09:45)
[2018-01-16] MEDS ORDERED: ONDANSETRON PF 4 MG/2 ML VIAL. IV PRN (09:45)
[2018-01-16] MEDS ORDERED: MAGNESIUM HYDROXIDE 2,400 MG/30 ML ORAL.SUSP. PO PRN (09:45)
[2018-01-16] MEDS: ASPIRIN CHEWABLE 81 MG TABLET. PO SCH (10:03)
[2018-01-16] MEDS: MEMANTINE 10 MG TABLET. PO SCH ×2 (10:04→21:51)
[2018-01-16] MEDS: MULTIVITAMIN with MINERAL TABLET. PO SCH (10:04)
[2018-01-16] MEDS: DIVALPROEX DELAYED RELEASE 500 MG TABLET.DR. PO SCH (10:04)
[2018-01-16] MEDS: DONEPEZIL HCL 10 MG TABLET. PO SCH (10:09)
--- NOTE | 2018-01-16 10:39 | PDOC2 ---
CONSULT Date of Consult Date of Consult DATE: 01/16/18 TIME: 10:34 Reason for Consult Reason for Consult: LADY Referring Physician Referring Physician: THIS IS A 72 YR OLD WITH CONFUSION. POOR HISTORIAN. LABS POS FOR HYPERNATREMIA AND LADY WITH CR OF 1.6. NO CKD NOTED. CT HEAD NEG. UA POS FOR UTI. NO OTHER HX NOTED. NO NEPHROTOXINS NOTED. SUSPICIOUS FOR POOR PO INTAKE WELL Identification/Chief Complaint Chief Complaint CONFUSION Source Source: Chart review History of Present Illness Reason for Visit: ABOVE Past Medical History Cardiovascular: HTN, Hyperlipidemia CENTRAL NERVOUS SYSTEM: CVA GI: Other Psych: Psychosis Rheumatologic: No pertinent hx Infectious disease: No pertinent hx ENT: No pertinent hx Renal/: No pertinent hx Endocrine: No pertinent hx Dermatology: No pertinent hx Past Surgical History Past Surgical History: No pertinent history Family History Family History: No Significant, Family History Unknown Social History No ALCOHOL: none Lives: Roommate Current Problem List Problem List Problems Medical Problems: (1) Acute renal insufficiency Status: Acute (2) Altered mental status Status: Acute (3) Hypernatremia Status: Acute (4) Thrush Status: Acute Current Medications Current Medications Current Medications Sodium Chloride 1,000 ml @ 1,000 mls/hr 1X ONCE IV Last administered on at 20:30; Start 01/15/18 at 20:30; Stop 01/15/18 at 21:29; Status DC Ceftriaxone Sodium 50 ml @ 100 mls/hr 1X ONCE IV ; Start 01/15/18 at 23:00; Stop 01/15/18 at 23:29; Status Cancel Nystatin (Nystatin Oral Susp) 5 ml 1X ONCE SWSW Last administered on at 23:00; Start 01/15/18 at 23:00; Stop 01/15/18 at 23:01; Status DC Ondansetron HCl (Zofran) 4 mg PRN Q8HRS PRN IV NAUSEA/VOMITING 1ST CHOICE; Start 01/15/18 at 23:00; Stop 01/16/18 at 09:35; Status DC Ceftriaxone Sodium (Rocephin) 1 gm 1X ONCE IVP Last administered on 01/16/18at 06:47; Start 01/16/18 at 07:00; Stop 01/16/18 at 07:01; Status DC Ondansetron HCl (Zofran) 4 mg PRN Q6HRS PRN IV NAUSEA/VOMITING 1ST CHOICE; Start 01/16/18 at 09:45 Acetaminophen (Tylenol) 500 mg PRN Q6HRS PRN PO MILD PAIN / TEMP; Start at 09:45; Status UNV Acetaminophen (Tylenol) 650 mg PRN Q6HRS PRN PO PAIN; Start 01/16/18 at 09:45 Aspirin (Children'S Aspirin) 81 mg DAILY PO Last administered on 01/16/18at 10: 03; Start 01/16/18 at 10:00 Atorvastatin Calcium (Lipitor) 10 mg QHS PO ; Start 01/16/18 at 21:00 Clonidine HCl (Catapres) 0.1 mg DAILY PO ; Start 01/17/18 at 09:00 Magnesium Hydroxide (Milk Of Magnesia) 800 mg DAILY PRN PO CONSTIPATION; Start 01/16/18 at 09:45 Divalproex Sodium (Depakote) 250 mg QHS PO ; Start 01/16/18 at 21:00 Divalproex Sodium (Depakote) 500 mg DAILY PO Last administered on 01/16/18at 10: 04; Start 01/16/18 at 10:00 Donepezil HCl (Aricept) 10 mg DAILY PO Last administered on 01/16/18at 10:09; Start 01/16/18 at 10:00 Memantine (Namenda) 10 mg BID PO Last administered on 01/16/18at 10:04; Start at 10:00 Multivitamins (Thera M Plus) 1 tab DAILY PO Last administered on 01/16/18at 10: 04; Start 01/16/18 at 10:00 Active Scripts Active Cefpodoxime Proxetil 100 Mg Tablet 200 Mg PO BID 10 Days Reported Chlorhexidine Flavor (Chlorhexidine) 1 Ml Liquid 1 Ml [facility] Milk Of Magnesia (Magnesium Hydroxide) 400 Mg/5 Ml Oral.susp 800 Mg PO PRN PRN Acetaminophen 325 Mg Tablet 650 Mg PO PRN Q6HRS PRN Clonidine Hcl 0.1 Mg Tablet 0.1 Mg PO DAILY Depakote (Divalproex Sodium) 250 Mg Tablet.dr 250 Mg PO QHS Depakote (Divalproex Sodium) 500 Mg Tablet.dr 500 Mg PO DAILY Aricept (Donepezil Hcl) 10 Mg Tablet 1 Tab PO DAILY Namenda Xr (Memantine Hcl) 28 Mg Cap.spr.24 28 Mg PO DAILY Lipitor (Atorvastatin Calcium) 10 Mg Tablet 1 Tab PO QHS Children's Aspirin (Aspirin) 81 Mg Tab.chew 81 Mg PO DAILY Multi-Vitamin Daily (Multivitamin) 1 Each Tablet 1 Each PO DAILY Allergies Allergies: Coded Allergies: I S O L A T I O N *CONTACT* (Verified Allergy, Unknown, 01/02/18) mrsa No Known Medication Allergies (Verified Allergy, Unknown, 01/02/18) ROS Review of System UNABLE TO OBTAIN Physical Exam General: Alert, Cooperative, No acute distress HEENT: Atraumatic, PERRLA, Other (DRY MUCOSA) Lungs: Clear to auscultation Heart: Regular rate, Normal S1, Normal S2 Abdomen: Normal bowel sounds Extremities: No clubbing Neuro: Other (CONFUSED, NO ASYMMETRY) Psych/Mental Status: Other (FLAT AND CONFUSED AFFECT) MUSCULOSKELETAL: No deformity, No swelling Vitals VITALS Vital Signs Date Time Temp Pulse Resp B/P (MAP) Pulse Ox O2 Delivery O2 Flow Rate FiO2 01/16/18 07:36 97.9 60 17 143/79 (100) 96 Room Air 97.9 Labs Labs Laboratory Tests Test 01/15/18 20:50 01/15/18 21:20 01/16/18 01:40 01/16/18 04:55 White Blood Count 10.5 x10^3/uL (4.0-11.0) Red Blood Count 4.87 x10^6/uL (4.30-5.70) Hemoglobin 14.2 g/dL (13.0-17.5) Hematocrit 42.2 % (39.0-53.0) Mean Corpuscular Volume 87 fL (79-100) Mean Corpuscular Hemoglobin 29 pg (25-35) Mean Corpuscular Hemoglobin Concent 34 g/dL (31-37) Red Cell Distribution Width 13.8 % (11.5-14.5) Platelet Count 253 x10^3/uL (140-400) Neutrophils (%) (Auto) 67 % (31-73) Lymphocytes (%) (Auto) 18 % (24-48) Monocytes (%) (Auto) 8 % (0-9) Eosinophils (%) (Auto) 6 % (0-3) Basophils (%) (Auto) 1 % (0-3) Neutrophils # (Auto) 7.1 x10^3uL (1.8-7.7) Lymphocytes # (Auto) 1.9 x10^3/uL (1.0-4.8) Monocytes # (Auto) 0.8 x10^3/uL (0.0-1.1) Eosinophils # (Auto) 0.7 x10^3/uL (0.0-0.7) Basophils # (Auto) 0.1 x10^3/uL (0.0-0.2) Prothrombin Time 14.6 SEC (11.7-14.0) Prothromb Time International Ratio 1.2 (0.8-1.1) Activated Partial Thromboplast Time 27 SEC (24-38) Sodium Level 150 mmol/L (136-145) Potassium Level 3.8 mmol/L (3.5-5.1) Chloride Level 112 mmol/L (98-107) Carbon Dioxide Level 30 mmol/L (21-32) Anion Gap 8 (6-14) Blood Urea Nitrogen 16 mg/dL (8-26) Creatinine 1.4 mg/dL (0.7-1.3) Estimated GFR (Cockcroft-Gault) 60.3 BUN/Creatinine Ratio 11 (6-20) Glucose Level 125 mg/dL (70-99) Lactic Acid Level 2.0 mmol/L (0.4-2.0) Calcium Level 9.2 mg/dL (8.5-10.1) Magnesium Level 2.4 mg/dL (1.8-2.4) Total Bilirubin 0.3 mg/dL (0.2-1.0) Aspartate Amino Transf (AST/SGOT) 18 U/L (15-37) Alanine Aminotransferase (ALT/SGPT) 19 U/L (16-63) Alkaline Phosphatase 79 U/L (46-116) Ammonia 17 mcmol/L (11-34) Creatine Kinase 81 U/L (39-308) Creatine Kinase MB (Mass) < 0.5 ng/mL (0.0-3.6) Creatine Kinase MB Relative Index % (0-4) Troponin I Quantitative < 0.017 ng/mL (0.000-0.055) 0.023 ng/mL (0.000-0.055) 0.026 ng/mL (0.000-0.055) Total Protein 7.7 g/dL (6.4-8.2) Albumin 3.2 g/dL (3.4-5.0) Albumin/Globulin Ratio 0.7 (1.0-1.7) Valproic Acid (Depakene) Level 61 mcg/mL (50-100) Valproic Acid Last Dose Date Valproic Acid Last Dose Time Urine Collection Type Void Urine Color Yellow Urine Clarity Cloudy Urine pH 5.0 Urine Specific [place] 1.025 Urine Protein Negative mg/dL (NEG-TRACE) Urine Glucose (UA) Negative mg/dL (NEG) Urine Ketones (Stick) Trace mg/dL (NEG) Urine Blood Large (NEG) Urine Nitrite Negative (NEG) Urine Bilirubin Negative (NEG) Urine Urobilinogen Dipstick 1.0 mg/dL (0.2 mg/dL) Urine Leukocyte Esterase Small (NEG) Urine RBC 3-5 /HPF (0-2) Urine WBC 5-10 /HPF (0-4) Urine Squamous Epithelial Cells Few /LPF Urine Amorphous Sediment Present /HPF Urine Bacteria Few /HPF (0-FEW) Urine Mucus Slight /LPF Urine Opiates Screen Neg (NEG) Urine Methadone Screen Neg (NEG) Urine Barbiturates Neg (NEG) Urine Phencyclidine Screen Neg (NEG) Urine Amphetamine/Methamphetamine Neg (NEG) Urine Benzodiazepines Screen Neg (NEG) Urine Cocaine Screen Neg (NEG) Urine Cannabinoids Screen Neg (NEG) Urine Ethyl Alcohol Neg (NEG) Thyroid Stimulating Hormone (TSH) 0.507 uIU/mL (0.358-3.74) Laboratory Tests Test 01/15/18 20:50 01/15/18 21:20 01/16/18 01:40 01/16/18 04:55 White Blood Count 10.5 x10^3/uL (4.0-11.0) Red Blood Count 4.87 x10^6/uL (4.30-5.70) Hemoglobin 14.2 g/dL (13.0-17.5) Hematocrit 42.2 % (39.0-53.0) Mean Corpuscular Volume 87 fL (79-100) Mean Corpuscular Hemoglobin 29 pg (25-35) Mean Corpuscular Hemoglobin Concent 34 g/dL (31-37) Red Cell Distribution Width 13.8 % (11.5-14.5) Platelet Count 253 x10^3/uL (140-400) Neutrophils (%) (Auto) 67 % (31-73) Lymphocytes (%) (Auto) 18 % (24-48) Monocytes (%) (Auto) 8 % (0-9) Eosinophils (%) (Auto) 6 % (0-3) Basophils (%) (Auto) 1 % (0-3) Neutrophils # (Auto) 7.1 x10^3uL (1.8-7.7) Lymphocytes # (Auto) 1.9 x10^3/uL (1.0-4.8) Monocytes # (Auto) 0.8 x10^3/uL (0.0-1.1) Eosinophils # (Auto) 0.7 x10^3/uL (0.0-0.7) Basophils # (Auto) 0.1 x10^3/uL (0.0-0.2) Prothrombin Time 14.6 SEC (11.7-14.0) Prothromb Time International Ratio 1.2 (0.8-1.1) Activated Partial Thromboplast Time 27 SEC (24-38) Sodium Level 150 mmol/L (136-145) Potassium Level 3.8 mmol/L (3.5-5.1) Chloride Level 112 mmol/L (98-107) Carbon Dioxide Level 30 mmol/L (21-32) Anion Gap 8 (6-14) Blood Urea Nitrogen 16 mg/dL (8-26) Creatinine 1.4 mg/dL (0.7-1.3) Estimated GFR (Cockcroft-Gault) 60.3 BUN/Creatinine Ratio 11 (6-20) Glucose Level 125 mg/dL (70-99) Lactic Acid Level 2.0 mmol/L (0.4-2.0) Calcium Level 9.2 mg/dL (8.5-10.1) Magnesium Level 2.4 mg/dL (1.8-2.4) Total Bilirubin 0.3 mg/dL (0.2-1.0) Aspartate Amino Transf (AST/SGOT) 18 U/L (15-37) Alanine Aminotransferase (ALT/SGPT) 19 U/L (16-63) Alkaline Phosphatase 79 U/L (46-116) Ammonia 17 mcmol/L (11-34) Creatine Kinase 81 U/L (39-308) Creatine Kinase MB (Mass) < 0.5 ng/mL (0.0-3.6) Creatine Kinase MB Relative Index % (0-4) Troponin I Quantitative < 0.017 ng/mL (0.000-0.055) 0.023 ng/mL (0.000-0.055) 0.026 ng/mL (0.000-0.055) Total Protein 7.7 g/dL (6.4-8.2) Albumin 3.2 g/dL (3.4-5.0) Albumin/Globulin Ratio 0.7 (1.0-1.7) Valproic Acid (Depakene) Level 61 mcg/mL (50-100) Valproic Acid Last Dose Date Valproic Acid Last Dose Time Urine Collection Type Void Urine Color Yellow Urine Clarity Cloudy Urine pH 5.0 Urine Specific [place] 1.025 Urine Protein Negative mg/dL (NEG-TRACE) Urine Glucose (UA) Negative mg/dL (NEG) Urine Ketones (Stick) Trace mg/dL (NEG) Urine Blood Large (NEG) Urine Nitrite Negative (NEG) Urine Bilirubin Negative (NEG) Urine Urobilinogen Dipstick 1.0 mg/dL (0.2 mg/dL) Urine Leukocyte Esterase Small (NEG) Urine RBC 3-5 /HPF (0-2) Urine WBC 5-10 /HPF (0-4) Urine Squamous Epithelial Cells Few /LPF Urine Amorphous Sediment Present /HPF Urine Bacteria Few /HPF (0-FEW) Urine Mucus Slight /LPF Urine Opiates Screen Neg (NEG) Urine Methadone Screen Neg (NEG) Urine Barbiturates Neg (NEG) Urine Phencyclidine Screen Neg (NEG) Urine Amphetamine/Methamphetamine Neg (NEG) Urine Benzodiazepines Screen Neg (NEG) Urine Cocaine Screen Neg (NEG) Urine Cannabinoids Screen Neg (NEG) Urine Ethyl Alcohol Neg (NEG) Thyroid Stimulating Hormone (TSH) 0.507 uIU/mL (0.358-3.74) Assessment/Plan Assessment/Plan IMP DEHYDRATION URINARY TRACT INFECTION HYPERNATREMIA MILD LADY MET ENCEPHALOPATHY PLAN HYDRATION ANTIBIOTICS LABS IN [facility] DENSON MD Jan 16, 2018 10:39
--- NOTE | 2018-01-16 11:51 | PDOC2 ---
IM Consult Reason for consult BC + FOR GPR Referring physician DR GOMEZ Date of Admission DATE: 01/16/18 TIME: 11:43 Chief Complaint Chief Complaint This 72 year old male ,[place] resident admitted through ED for confusion. CT head neg no fevers ,WBC normal Pt has dementia, not able to give good history D/W RN Medical records reviewed Afebrile BC 1/ bottle Gram positive Rods NA 150 Creat 1.6 Pt is comfortable, answers few questions denies any f/c/n/v/d/abdo pain/sob/headache has healed coccygeal lesion per RN Past Medical History Cardiovascular: HTN, Hyperlipidemia CENTRAL NERVOUS SYSTEM: CVA GI: Other Psych: Psychosis Rheumatologic: No pertinent hx Infectious disease: No pertinent hx ENT: No pertinent hx Renal/: No pertinent hx Endocrine: No pertinent hx Dermatology: No pertinent hx Past Surgical History Past Surgical History: No pertinent history Past Family History Family History: No Significant, Family History Unknown Review of Symptoms Review of Symptoms General ROS: positive for - Psychological ROS: negative Ophthalmic ROS: negative ENT ROS: negative Allergy and Immunology ROS: negative Hematology and Lymphatic: negative Endocrine ROS: negative Respiratory ROS: no cold, cough, dyspnea. Cardiovascular ROS: no chest pain or dyspnea on exertion Gastrointestinal ROS: no abdominal pain, change in bowel habits, or black or bloody stools Genito-Urinary ROS: no dysuria, trouble voiding, or hematuria Musculoskeletal ROS: no pain Neurological ROS: negative Dermatological ROS: no rash Medications Current Medications Acetaminophen (Tylenol) 500 mg PRN Q6HRS PRN PO MILD PAIN / TEMP; Start at 09:45; Status UNV Acetaminophen (Tylenol) 650 mg PRN Q6HRS PRN PO PAIN; Start 01/16/18 at 09:45 Aspirin (Children'S Aspirin) 81 mg DAILY PO Last administered on 01/16/18at 10: 03; Start 01/16/18 at 10:00 Atorvastatin Calcium (Lipitor) 10 mg QHS PO ; Start 01/16/18 at 21:00 Ceftriaxone Sodium 50 ml @ 100 mls/hr 1X ONCE IV ; Start 01/15/18 at 23:00; Stop 01/15/18 at 23:29; Status Cancel Ceftriaxone Sodium (Rocephin) 1 gm 1X ONCE IVP Last administered on 01/16/18at 06:47; Start 01/16/18 at 07:00; Stop 01/16/18 at 07:01; Status DC Clonidine HCl (Catapres) 0.1 mg DAILY PO ; Start 01/17/18 at 09:00 Divalproex Sodium (Depakote) 250 mg QHS PO ; Start 01/16/18 at 21:00 Divalproex Sodium (Depakote) 500 mg DAILY PO Last administered on 01/16/18at 10: 04; Start 01/16/18 at 10:00 Donepezil HCl (Aricept) 10 mg DAILY PO Last administered on 01/16/18at 10:09; Start 01/16/18 at 10:00 Magnesium Hydroxide (Milk Of Magnesia) 800 mg DAILY PRN PO CONSTIPATION; Start 01/16/18 at 09:45 Memantine (Namenda) 10 mg BID PO Last administered on 01/16/18at 10:04; Start at 10:00 Multivitamins (Thera M Plus) 1 tab DAILY PO Last administered on 01/16/18at 10: 04; Start 01/16/18 at 10:00 Nystatin (Nystatin Oral Susp) 5 ml 1X ONCE SWSW Last administered on at 23:00; Start 01/15/18 at 23:00; Stop 01/15/18 at 23:01; Status DC Ondansetron HCl (Zofran) 4 mg PRN Q6HRS PRN IV NAUSEA/VOMITING 1ST CHOICE; Start 01/16/18 at 09:45 Ondansetron HCl (Zofran) 4 mg PRN Q8HRS PRN IV NAUSEA/VOMITING 1ST CHOICE; Start 01/15/18 at 23:00; Stop 01/16/18 at 09:35; Status DC Sodium Chloride 1,000 ml @ 100 mls/hr Q10H IV ; Start 01/16/18 at 11:30 Sodium Chloride 1,000 ml @ 1,000 mls/hr 1X ONCE IV Last administered on at 20:30; Start 01/15/18 at 20:30; Stop 01/15/18 at 21:29; Status DC Allergy Allergies Coded Allergies Type Severity Reaction Last Updated Verified I S O L A T I O N *CONTACT* Allergy Unknown 01/02/18 Yes No Known Medication Allergies Allergy Unknown 01/02/18 Yes Physical Exam Physical Exam General appearance - alert,well appearing, and in no distress Mental Status - alert,awake,cooperative Head - normal Chest - clear Heart - S1 S2 Abdomen - soft, nontender, nondistended, no masses or organomegaly Neurological - alert awake, answers simple questions,moves all 4 ext Extremities - no pedal edema Skin - warm and dry Labs Laboratory Tests Test 01/15/18 20:50 01/15/18 21:20 01/16/18 01:40 01/16/18 04:55 White Blood Count 10.5 x10^3/uL (4.0-11.0) Red Blood Count 4.87 x10^6/uL (4.30-5.70) Hemoglobin 14.2 g/dL (13.0-17.5) Hematocrit 42.2 % (39.0-53.0) Mean Corpuscular Volume 87 fL (79-100) Mean Corpuscular Hemoglobin 29 pg (25-35) Mean Corpuscular Hemoglobin Concent 34 g/dL (31-37) Red Cell Distribution Width 13.8 % (11.5-14.5) Platelet Count 253 x10^3/uL (140-400) Neutrophils (%) (Auto) 67 % (31-73) Lymphocytes (%) (Auto) 18 % (24-48) Monocytes (%) (Auto) 8 % (0-9) Eosinophils (%) (Auto) 6 % (0-3) Basophils (%) (Auto) 1 % (0-3) Neutrophils # (Auto) 7.1 x10^3uL (1.8-7.7) Lymphocytes # (Auto) 1.9 x10^3/uL (1.0-4.8) Monocytes # (Auto) 0.8 x10^3/uL (0.0-1.1) Eosinophils # (Auto) 0.7 x10^3/uL (0.0-0.7) Basophils # (Auto) 0.1 x10^3/uL (0.0-0.2) Prothrombin Time 14.6 SEC (11.7-14.0) Prothromb Time International Ratio 1.2 (0.8-1.1) Activated Partial Thromboplast Time 27 SEC (24-38) Sodium Level 150 mmol/L (136-145) Potassium Level 3.8 mmol/L (3.5-5.1) Chloride Level 112 mmol/L (98-107) Carbon Dioxide Level 30 mmol/L (21-32) Anion Gap 8 (6-14) Blood Urea Nitrogen 16 mg/dL (8-26) Creatinine 1.4 mg/dL (0.7-1.3) Estimated GFR (Cockcroft-Gault) 60.3 BUN/Creatinine Ratio 11 (6-20) Glucose Level 125 mg/dL (70-99) Lactic Acid Level 2.0 mmol/L (0.4-2.0) Calcium Level 9.2 mg/dL (8.5-10.1) Magnesium Level 2.4 mg/dL (1.8-2.4) Total Bilirubin 0.3 mg/dL (0.2-1.0) Aspartate Amino Transf (AST/SGOT) 18 U/L (15-37) Alanine Aminotransferase (ALT/SGPT) 19 U/L (16-63) Alkaline Phosphatase 79 U/L (46-116) Ammonia 17 mcmol/L (11-34) Creatine Kinase 81 U/L (39-308) Creatine Kinase MB (Mass) < 0.5 ng/mL (0.0-3.6) Creatine Kinase MB Relative Index % (0-4) Troponin I Quantitative < 0.017 ng/mL (0.000-0.055) 0.023 ng/mL (0.000-0.055) 0.026 ng/mL (0.000-0.055) Total Protein 7.7 g/dL (6.4-8.2) Albumin 3.2 g/dL (3.4-5.0) Albumin/Globulin Ratio 0.7 (1.0-1.7) Valproic Acid (Depakene) Level 61 mcg/mL (50-100) Valproic Acid Last Dose Date Valproic Acid Last Dose Time Urine Collection Type Void Urine Color Yellow Urine Clarity Cloudy Urine pH 5.0 Urine Specific [place] 1.025 Urine Protein Negative mg/dL (NEG-TRACE) Urine Glucose (UA) Negative mg/dL (NEG) Urine Ketones (Stick) Trace mg/dL (NEG) Urine Blood Large (NEG) Urine Nitrite Negative (NEG) Urine Bilirubin Negative (NEG) Urine Urobilinogen Dipstick 1.0 mg/dL (0.2 mg/dL) Urine Leukocyte Esterase Small (NEG) Urine RBC 3-5 /HPF (0-2) Urine WBC 5-10 /HPF (0-4) Urine Squamous Epithelial Cells Few /LPF Urine Amorphous Sediment Present /HPF Urine Bacteria Few /HPF (0-FEW) Urine Mucus Slight /LPF Urine Opiates Screen Neg (NEG) Urine Methadone Screen Neg (NEG) Urine Barbiturates Neg (NEG) Urine Phencyclidine Screen Neg (NEG) Urine Amphetamine/Methamphetamine Neg (NEG) Urine Benzodiazepines Screen Neg (NEG) Urine Cocaine Screen Neg (NEG) Urine Cannabinoids Screen Neg (NEG) Urine Ethyl Alcohol Neg (NEG) Thyroid Stimulating Hormone (TSH) 0.507 uIU/mL (0.358-3.74) Laboratory Tests Test 01/15/18 20:50 01/15/18 21:20 01/16/18 01:40 01/16/18 04:55 White Blood Count 10.5 x10^3/uL (4.0-11.0) Red Blood Count 4.87 x10^6/uL (4.30-5.70) Hemoglobin 14.2 g/dL (13.0-17.5) Hematocrit 42.2 % (39.0-53.0) Mean Corpuscular Volume 87 fL (79-100) Mean Corpuscular Hemoglobin 29 pg (25-35) Mean Corpuscular Hemoglobin Concent 34 g/dL (31-37) Red Cell Distribution Width 13.8 % (11.5-14.5) Platelet Count 253 x10^3/uL (140-400) Neutrophils (%) (Auto) 67 % (31-73) Lymphocytes (%) (Auto) 18 % (24-48) Monocytes (%) (Auto) 8 % (0-9) Eosinophils (%) (Auto) 6 % (0-3) Basophils (%) (Auto) 1 % (0-3) Neutrophils # (Auto) 7.1 x10^3uL (1.8-7.7) Lymphocytes # (Auto) 1.9 x10^3/uL (1.0-4.8) Monocytes # (Auto) 0.8 x10^3/uL (0.0-1.1) Eosinophils # (Auto) 0.7 x10^3/uL (0.0-0.7) Basophils # (Auto) 0.1 x10^3/uL (0.0-0.2) Prothrombin Time 14.6 SEC (11.7-14.0) Prothromb Time International Ratio 1.2 (0.8-1.1) Activated Partial Thromboplast Time 27 SEC (24-38) Sodium Level 150 mmol/L (136-145) Potassium Level 3.8 mmol/L (3.5-5.1) Chloride Level 112 mmol/L (98-107) Carbon Dioxide Level 30 mmol/L (21-32) Anion Gap 8 (6-14) Blood Urea Nitrogen 16 mg/dL (8-26) Creatinine 1.4 mg/dL (0.7-1.3) Estimated GFR (Cockcroft-Gault) 60.3 BUN/Creatinine Ratio 11 (6-20) Glucose Level 125 mg/dL (70-99) Lactic Acid Level 2.0 mmol/L (0.4-2.0) Calcium Level 9.2 mg/dL (8.5-10.1) Magnesium Level 2.4 mg/dL (1.8-2.4) Total Bilirubin 0.3 mg/dL (0.2-1.0) Aspartate Amino Transf (AST/SGOT) 18 U/L (15-37) Alanine Aminotransferase (ALT/SGPT) 19 U/L (16-63) Alkaline Phosphatase 79 U/L (46-116) Ammonia 17 mcmol/L (11-34) Creatine Kinase 81 U/L (39-308) Creatine Kinase MB (Mass) < 0.5 ng/mL (0.0-3.6) Creatine Kinase MB Relative Index % (0-4) Troponin I Quantitative < 0.017 ng/mL (0.000-0.055) 0.023 ng/mL (0.000-0.055) 0.026 ng/mL (0.000-0.055) Total Protein 7.7 g/dL (6.4-8.2) Albumin 3.2 g/dL (3.4-5.0) Albumin/Globulin Ratio 0.7 (1.0-1.7) Valproic Acid (Depakene) Level 61 mcg/mL (50-100) Valproic Acid Last Dose Date Valproic Acid Last Dose Time Urine Collection Type Void Urine Color Yellow Urine Clarity Cloudy Urine pH 5.0 Urine Specific [place] 1.025 Urine Protein Negative mg/dL (NEG-TRACE) Urine Glucose (UA) Negative mg/dL (NEG) Urine Ketones (Stick) Trace mg/dL (NEG) Urine Blood Large (NEG) Urine Nitrite Negative (NEG) Urine Bilirubin Negative (NEG) Urine Urobilinogen Dipstick 1.0 mg/dL (0.2 mg/dL) Urine Leukocyte Esterase Small (NEG) Urine RBC 3-5 /HPF (0-2) Urine WBC 5-10 /HPF (0-4) Urine Squamous Epithelial Cells Few /LPF Urine Amorphous Sediment Present /HPF Urine Bacteria Few /HPF (0-FEW) Urine Mucus Slight /LPF Urine Opiates Screen Neg (NEG) Urine Methadone Screen Neg (NEG) Urine Barbiturates Neg (NEG) Urine Phencyclidine Screen Neg (NEG) Urine Amphetamine/Methamphetamine Neg (NEG) Urine Benzodiazepines Screen Neg (NEG) Urine Cocaine Screen Neg (NEG) Urine Cannabinoids Screen Neg (NEG) Urine Ethyl Alcohol Neg (NEG) Thyroid Stimulating Hormone (TSH) 0.507 uIU/mL (0.358-3.74) Vitals Vital Signs Date Time Temp Pulse Resp B/P (MAP) Pulse Ox O2 Delivery O2 Flow Rate FiO2 01/16/18 10:49 98.1 90 18 152/87 (108) 98 Room Air 98.1 Assessment Assessment Bacteremia 1/2 bottles GPR ,no localizing source for infection s/p one dose of ceftriaxone , no fevers or leucocytosis likely contaminant Confusion with underlying dementia likely metabolic CT head neg Hypernatremia, LADY Dementia Plan Plan Monitor closely off antibiotics f/u GPR in low threshold to start on antibiotics if has any hemodynamically instability or fever monitor c/s and labs in am d/w RN Thank you for allowing us to participate in this pts care NERY OLIVA MD Jan 16, 2018 11:51
[2018-01-16] MEDS: IV 1/2 NORMAL SALINE 1,000 ML IV SCH ×2 (12:01→21:52)
--- NOTE | 2018-01-16 14:21 | PDOC1 ---
History and Physical Date of Admission Date of Admission DATE: 01/16/18 TIME: 14:16 Identification/Chief Complaint Chief Complaint Altered mental status more than usual-sent in by staff Source Source: Caregiver, Chart review, Patient History of Present Illness History of Present Illness 82-year-old -[place] male,'[place] resident, brought in by staff because of reports of more altered mental status and initial thoughts of UTI. Also hypernatremia 151 at ER hence subsequently admitted. Patient has no complaints to me, family at bedside. He's constantly grinding his teeth. Otherwise he does not complain of anything. I reviewed the UA, I am not convinced that there is UTI hence I did not continue Rocephin he got a dose ta ER Labs: creatinine 1.4, sodium 150. As per report, he ambulates standby assist, on honey thickened diet at care home. DNR on chart. I did consult renal and service started him on half-normal saline. Other comorbidities include hypertension dyslipidemia. Past Medical History Cardiovascular: HTN, Hyperlipidemia CENTRAL NERVOUS SYSTEM: CVA GI: Other Psych: Psychosis Rheumatologic: No pertinent hx Infectious disease: No pertinent hx ENT: No pertinent hx Renal/: No pertinent hx Endocrine: No pertinent hx Dermatology: No pertinent hx Past Surgical History Past Surgical History: No pertinent history Family History Family History: No Significant, Family History Unknown Social History Smoke: No ALCOHOL: none Drugs: None Current Problem List Problem List Problems Medical Problems: (1) Acute renal insufficiency Status: Acute (2) Altered mental status Status: Acute (3) Hypernatremia Status: Acute (4) Thrush Status: Acute Current Medications Current Medications Current Medications Sodium Chloride 1,000 ml @ 1,000 mls/hr 1X ONCE IV Last administered on at 20:30; Start 01/15/18 at 20:30; Stop 01/15/18 at 21:29; Status DC Ceftriaxone Sodium 50 ml @ 100 mls/hr 1X ONCE IV ; Start 01/15/18 at 23:00; Stop 01/15/18 at 23:29; Status Cancel Nystatin (Nystatin Oral Susp) 5 ml 1X ONCE SWSW Last administered on at 23:00; Start 01/15/18 at 23:00; Stop 01/15/18 at 23:01; Status DC Ondansetron HCl (Zofran) 4 mg PRN Q8HRS PRN IV NAUSEA/VOMITING 1ST CHOICE; Start 01/15/18 at 23:00; Stop 01/16/18 at 09:35; Status DC Ceftriaxone Sodium (Rocephin) 1 gm 1X ONCE IVP Last administered on 01/16/18at 06:47; Start 01/16/18 at 07:00; Stop 01/16/18 at 07:01; Status DC Ondansetron HCl (Zofran) 4 mg PRN Q6HRS PRN IV NAUSEA/VOMITING 1ST CHOICE; Start 01/16/18 at 09:45 Acetaminophen (Tylenol) 500 mg PRN Q6HRS PRN PO MILD PAIN / TEMP; Start at 09:45; Status UNV Acetaminophen (Tylenol) 650 mg PRN Q6HRS PRN PO PAIN; Start 01/16/18 at 09:45 Aspirin (Children'S Aspirin) 81 mg DAILY PO Last administered on 01/16/18at 10: 03; Start 01/16/18 at 10:00 Atorvastatin Calcium (Lipitor) 10 mg QHS PO ; Start 01/16/18 at 21:00 Clonidine HCl (Catapres) 0.1 mg DAILY PO ; Start 01/17/18 at 09:00 Magnesium Hydroxide (Milk Of Magnesia) 800 mg DAILY PRN PO CONSTIPATION; Start 01/16/18 at 09:45 Divalproex Sodium (Depakote) 250 mg QHS PO ; Start 01/16/18 at 21:00 Divalproex Sodium (Depakote) 500 mg DAILY PO Last administered on 01/16/18at 10: 04; Start 01/16/18 at 10:00 Donepezil HCl (Aricept) 10 mg DAILY PO Last administered on 01/16/18at 10:09; Start 01/16/18 at 10:00 Memantine (Namenda) 10 mg BID PO Last administered on 01/16/18at 10:04; Start at 10:00 Multivitamins (Thera M Plus) 1 tab DAILY PO Last administered on 01/16/18at 10: 04; Start 01/16/18 at 10:00 Sodium Chloride 1,000 ml @ 100 mls/hr Q10H IV Last administered on 01/16/18at 12:01; Start 01/16/18 at 11:30 Active Scripts Active Cefpodoxime Proxetil 100 Mg Tablet 200 Mg PO BID 10 Days Reported Chlorhexidine Flavor (Chlorhexidine) 1 Ml Liquid 1 Ml MC Milk Of Magnesia (Magnesium Hydroxide) 400 Mg/5 Ml Oral.susp 800 Mg PO PRN PRN Acetaminophen 325 Mg Tablet 650 Mg PO PRN Q6HRS PRN Clonidine Hcl 0.1 Mg Tablet 0.1 Mg PO DAILY Depakote (Divalproex Sodium) 250 Mg Tablet.dr 250 Mg PO QHS Depakote (Divalproex Sodium) 500 Mg Tablet.dr 500 Mg PO DAILY Aricept (Donepezil Hcl) 10 Mg Tablet 1 Tab PO DAILY Namenda Xr (Memantine Hcl) 28 Mg Cap.spr.24 28 Mg PO DAILY Lipitor (Atorvastatin Calcium) 10 Mg Tablet 1 Tab PO QHS Children's Aspirin (Aspirin) 81 Mg Tab.chew 81 Mg PO DAILY Multi-Vitamin Daily (Multivitamin) 1 Each Tablet 1 Each PO DAILY Allergies Allergies: Coded Allergies: I S O L A T I O N *CONTACT* (Verified Allergy, Unknown, 01/02/18) mrsa No Known Medication Allergies (Verified Allergy, Unknown, 01/02/18) ROS Review of System A 14 point ROS was completed with the following noted as positive: Other systems reviewed and negative. \CONSTITUTIONAL: No fever or chills EYES: No recent changes SKIN: No rash or itching CARDIOVASCULAR: No chest pain, syncope, palpitations, or edema RESPIRATORY: No SOB or cough GASTROINTESTINAL: No nausea, vomiting or abdominal pain NEUROLOGICAL: No headaches or weakness ENDOCRINE: No cold or heat intolerance GENITOURINARY: No urgency or frequency of urination MUSCULOSKELETAL: No back pain or joint pain LYMPHATICS: No enlarged lymph nodes PSYCHIATRIC: No anxiety or depression Physical Exam General: Alert, Cooperative, No acute distress HEENT: Atraumatic, PERRLA Lungs: Clear to auscultation Heart: S1S2, RRR, no thrills, no rubs, no gallops, no murmurs Cardiovascular: S1, S2 Abdomen: Normal bowel sounds, Soft, No tenderness, No hepatosplenomegaly, No masses Male Genitals Exam: normal genitalia Rectal Exam: not examined PELVIC: Nml ext genitalia Extremities: No clubbing, No cyanosis, No edema, Normal pulses, No tenderness/ swelling Skin: No rashes, No breakdown, No significant lesion Neuro: Normal gait, Normal speech, Strength at 5/5 X4 ext, Normal tone, Sensation intact, Cranial nerves 3-12 NL, Reflexes 2+ Psych/Mental Status: Mental status NL, Mood NL Vitals Vitals Vital Signs Date Time Temp Pulse Resp B/P (MAP) Pulse Ox O2 Delivery O2 Flow Rate FiO2 01/16/18 10:49 98.1 90 18 152/87 (108) 98 Room Air 98.1 Labs Labs Laboratory Tests Test 01/15/18 20:50 01/15/18 21:20 01/16/18 01:40 01/16/18 04:55 White Blood Count 10.5 x10^3/uL (4.0-11.0) Red Blood Count 4.87 x10^6/uL (4.30-5.70) Hemoglobin 14.2 g/dL (13.0-17.5) Hematocrit 42.2 % (39.0-53.0) Mean Corpuscular Volume 87 fL (79-100) Mean Corpuscular Hemoglobin 29 pg (25-35) Mean Corpuscular Hemoglobin Concent 34 g/dL (31-37) Red Cell Distribution Width 13.8 % (11.5-14.5) Platelet Count 253 x10^3/uL (140-400) Neutrophils (%) (Auto) 67 % (31-73) Lymphocytes (%) (Auto) 18 % (24-48) Monocytes (%) (Auto) 8 % (0-9) Eosinophils (%) (Auto) 6 % (0-3) Basophils (%) (Auto) 1 % (0-3) Neutrophils # (Auto) 7.1 x10^3uL (1.8-7.7) Lymphocytes # (Auto) 1.9 x10^3/uL (1.0-4.8) Monocytes # (Auto) 0.8 x10^3/uL (0.0-1.1) Eosinophils # (Auto) 0.7 x10^3/uL (0.0-0.7) Basophils # (Auto) 0.1 x10^3/uL (0.0-0.2) Prothrombin Time 14.6 SEC (11.7-14.0) Prothromb Time International Ratio 1.2 (0.8-1.1) Activated Partial Thromboplast Time 27 SEC (24-38) Sodium Level 150 mmol/L (136-145) Potassium Level 3.8 mmol/L (3.5-5.1) Chloride Level 112 mmol/L (98-107) Carbon Dioxide Level 30 mmol/L (21-32) Anion Gap 8 (6-14) Blood Urea Nitrogen 16 mg/dL (8-26) Creatinine 1.4 mg/dL (0.7-1.3) Estimated GFR (Cockcroft-Gault) 60.3 BUN/Creatinine Ratio 11 (6-20) Glucose Level 125 mg/dL (70-99) Lactic Acid Level 2.0 mmol/L (0.4-2.0) Calcium Level 9.2 mg/dL (8.5-10.1) Magnesium Level 2.4 mg/dL (1.8-2.4) Total Bilirubin 0.3 mg/dL (0.2-1.0) Aspartate Amino Transf (AST/SGOT) 18 U/L (15-37) Alanine Aminotransferase (ALT/SGPT) 19 U/L (16-63) Alkaline Phosphatase 79 U/L (46-116) Ammonia 17 mcmol/L (11-34) Creatine Kinase 81 U/L (39-308) Creatine Kinase MB (Mass) < 0.5 ng/mL (0.0-3.6) Creatine Kinase MB Relative Index % (0-4) Troponin I Quantitative < 0.017 ng/mL (0.000-0.055) 0.023 ng/mL (0.000-0.055) 0.026 ng/mL (0.000-0.055) Total Protein 7.7 g/dL (6.4-8.2) Albumin 3.2 g/dL (3.4-5.0) Albumin/Globulin Ratio 0.7 (1.0-1.7) Valproic Acid (Depakene) Level 61 mcg/mL (50-100) Valproic Acid Last Dose Date Valproic Acid Last Dose Time Urine Collection Type Void Urine Color Yellow Urine Clarity Cloudy Urine pH 5.0 Urine Specific [place] 1.025 Urine Protein Negative mg/dL (NEG-TRACE) Urine Glucose (UA) Negative mg/dL (NEG) Urine Ketones (Stick) Trace mg/dL (NEG) Urine Blood Large (NEG) Urine Nitrite Negative (NEG) Urine Bilirubin Negative (NEG) Urine Urobilinogen Dipstick 1.0 mg/dL (0.2 mg/dL) Urine Leukocyte Esterase Small (NEG) Urine RBC 3-5 /HPF (0-2) Urine WBC 5-10 /HPF (0-4) Urine Squamous Epithelial Cells Few /LPF Urine Amorphous Sediment Present /HPF Urine Bacteria Few /HPF (0-FEW) Urine Mucus Slight /LPF Urine Opiates Screen Neg (NEG) Urine Methadone Screen Neg (NEG) Urine Barbiturates Neg (NEG) Urine Phencyclidine Screen Neg (NEG) Urine Amphetamine/Methamphetamine Neg (NEG) Urine Benzodiazepines Screen Neg (NEG) Urine Cocaine Screen Neg (NEG) Urine Cannabinoids Screen Neg (NEG) Urine Ethyl Alcohol Neg (NEG) Thyroid Stimulating Hormone (TSH) 0.507 uIU/mL (0.358-3.74) Test 01/16/18 10:54 Erythrocyte Sedimentation Rate 23 (0-15) Laboratory Tests Test 01/15/18 20:50 01/15/18 21:20 01/16/18 01:40 01/16/18 04:55 White Blood Count 10.5 x10^3/uL (4.0-11.0) Red Blood Count 4.87 x10^6/uL (4.30-5.70) Hemoglobin 14.2 g/dL (13.0-17.5) Hematocrit 42.2 % (39.0-53.0) Mean Corpuscular Volume 87 fL (79-100) Mean Corpuscular Hemoglobin 29 pg (25-35) Mean Corpuscular Hemoglobin Concent 34 g/dL (31-37) Red Cell Distribution Width 13.8 % (11.5-14.5) Platelet Count 253 x10^3/uL (140-400) Neutrophils (%) (Auto) 67 % (31-73) Lymphocytes (%) (Auto) 18 % (24-48) Monocytes (%) (Auto) 8 % (0-9) Eosinophils (%) (Auto) 6 % (0-3) Basophils (%) (Auto) 1 % (0-3) Neutrophils # (Auto) 7.1 x10^3uL (1.8-7.7) Lymphocytes # (Auto) 1.9 x10^3/uL (1.0-4.8) Monocytes # (Auto) 0.8 x10^3/uL (0.0-1.1) Eosinophils # (Auto) 0.7 x10^3/uL (0.0-0.7) Basophils # (Auto) 0.1 x10^3/uL (0.0-0.2) Prothrombin Time 14.6 SEC (11.7-14.0) Prothromb Time International Ratio 1.2 (0.8-1.1) Activated Partial Thromboplast Time 27 SEC (24-38) Sodium Level 150 mmol/L (136-145) Potassium Level 3.8 mmol/L (3.5-5.1) Chloride Level 112 mmol/L (98-107) Carbon Dioxide Level 30 mmol/L (21-32) Anion Gap 8 (6-14) Blood Urea Nitrogen 16 mg/dL (8-26) Creatinine 1.4 mg/dL (0.7-1.3) Estimated GFR (Cockcroft-Gault) 60.3 BUN/Creatinine Ratio 11 (6-20) Glucose Level 125 mg/dL (70-99) Lactic Acid Level 2.0 mmol/L (0.4-2.0) Calcium Level 9.2 mg/dL (8.5-10.1) Magnesium Level 2.4 mg/dL (1.8-2.4) Total Bilirubin 0.3 mg/dL (0.2-1.0) Aspartate Amino Transf (AST/SGOT) 18 U/L (15-37) Alanine Aminotransferase (ALT/SGPT) 19 U/L (16-63) Alkaline Phosphatase 79 U/L (46-116) Ammonia 17 mcmol/L (11-34) Creatine Kinase 81 U/L (39-308) Creatine Kinase MB (Mass) < 0.5 ng/mL (0.0-3.6) Creatine Kinase MB Relative Index % (0-4) Troponin I Quantitative < 0.017 ng/mL (0.000-0.055) 0.023 ng/mL (0.000-0.055) 0.026 ng/mL (0.000-0.055) Total Protein 7.7 g/dL (6.4-8.2) Albumin 3.2 g/dL (3.4-5.0) Albumin/Globulin Ratio 0.7 (1.0-1.7) Valproic Acid (Depakene) Level 61 mcg/mL (50-100) Valproic Acid Last Dose Date Valproic Acid Last Dose Time Urine Collection Type Void Urine Color Yellow Urine Clarity Cloudy Urine pH 5.0 Urine Specific [place] 1.025 Urine Protein Negative mg/dL (NEG-TRACE) Urine Glucose (UA) Negative mg/dL (NEG) Urine Ketones (Stick) Trace mg/dL (NEG) Urine Blood Large (NEG) Urine Nitrite Negative (NEG) Urine Bilirubin Negative (NEG) Urine Urobilinogen Dipstick 1.0 mg/dL (0.2 mg/dL) Urine Leukocyte Esterase Small (NEG) Urine RBC 3-5 /HPF (0-2) Urine WBC 5-10 /HPF (0-4) Urine Squamous Epithelial Cells Few /LPF Urine Amorphous Sediment Present /HPF Urine Bacteria Few /HPF (0-FEW) Urine Mucus Slight /LPF Urine Opiates Screen Neg (NEG) Urine Methadone Screen Neg (NEG) Urine Barbiturates Neg (NEG) Urine Phencyclidine Screen Neg (NEG) Urine Amphetamine/Methamphetamine Neg (NEG) Urine Benzodiazepines Screen Neg (NEG) Urine Cocaine Screen Neg (NEG) Urine Cannabinoids Screen Neg (NEG) Urine Ethyl Alcohol Neg (NEG) Thyroid Stimulating Hormone (TSH) 0.507 uIU/mL (0.358-3.74) Test 01/16/18 10:54 Erythrocyte Sedimentation Rate 23 (0-15) VTE Prophylaxis Ordered VTE Prophylaxis Devices: Yes VTE Pharmacological Prophylaxi: Yes Assessment/Plan Assessment/Plan Hypernatremia, 151-new diagnosis Encephalopathy, metabolic-secondary to hypernatremia along with other comorbidities? Hypertension, dyslipidemia, chronic stable AK I VMN-on half normal saline by renal DNR Generalized weakness, frailty [facility] resident Plan: Admit 2 MN Renal consult Half-normal saline Recheck BMP tomorrow I think I did add TSH No UTI hence no more IV antibiotics DNR Discussed with RN at bedside Dvt ppx Supportive meds TEA AVILA MD Jan 16, 2018 14:21
[2018-01-16] MEDS: ATORVASTATIN CALCIUM 10 MG TABLET. PO SCH (21:51)
[2018-01-16] MEDS: DIVALPROEX DELAYED RELEASE 250 MG TABLET.DR. PO SCH (21:51)
[2018-01-17 03:46] VITALS: BP 144/79
[2018-01-17 05:54] LABS: ALBUMIN 2.2 g/dL (3.4-5.0); CALCIUM 7.8 mg/dL (8.5-10.1); GFR 88.9; PHOSPHORUS 2.9 mg/dL (2.6-4.7); POTASSIUM 3.5 mmol/L (3.5-5.1)
[2018-01-17 07:25] VITALS: BP 147/66
[2018-01-17] MEDS: IV 1/2 NORMAL SALINE 1,000 ML IV SCH (07:50)
--- NOTE | 2018-01-17 09:02 | PDOC ---
Infectious Disease Note Subjective: Subjective pt is alert awake, sitting at edge of bed says is ok but remains confused, follows simple commands ROS: ROS limited Vital Signs: Vital Signs Vital Signs Date Time Temp Pulse Resp B/P (MAP) Pulse Ox O2 Delivery O2 Flow Rate FiO2 01/17/18 07:25 98.1 57 16 147/66 (93) 96 Room Air 98.1 Physical Exam: PHYSICAL EXAM General appearance - alert,well appearing, and in no distress,comfortable Head - normal Neck supple Chest - clear Heart - S1 S2 Abdomen - soft, nontender, nondistended, no masses or organomegaly Neurological - alert awake, answers simple questions,moves all 4 ext Extremities - no pedal edema Skin - warm and dry, no gen rash Medications: Inpatient Meds: Current Medications Medications (Trade) Dose Ordered Sig/Renata Start Time Stop Time Status Last Admin Dose Admin Acetaminophen (Tylenol) 650 mg PRN Q6HRS PRN 01/16/18 09:45 Aspirin (Children'S Aspirin) 81 mg DAILY 01/16/18 10:00 01/16/18 10:03 81 MG Atorvastatin Calcium (Lipitor) 10 mg QHS 01/16/18 21:00 01/16/18 21:51 10 MG Ceftriaxone Sodium (Rocephin) 1 gm 1X ONCE 01/16/18 07:00 01/16/18 07:01 DC 01/16/18 06:47 1 GM Clonidine HCl (Catapres) 0.1 mg DAILY 01/17/18 09:00 Divalproex Sodium (Depakote) 500 mg DAILY 01/16/18 10:00 01/16/18 10:04 500 MG Donepezil HCl (Aricept) 10 mg DAILY 01/16/18 10:00 01/16/18 10:09 10 MG Magnesium Hydroxide (Milk Of Magnesia) 800 mg DAILY PRN 01/16/18 09:45 Memantine (Namenda) 10 mg BID 01/16/18 10:00 01/16/18 21:51 10 MG Multivitamins (Thera M Plus) 1 tab DAILY 01/16/18 10:00 01/16/18 10:04 1 TAB Nystatin (Nystatin Oral Susp) 5 ml 1X ONCE 01/15/18 23:00 01/15/18 23:01 DC 01/15/18 23:00 5 ML Ondansetron HCl (Zofran) 4 mg PRN Q6HRS PRN 01/16/18 09:45 Sodium Chloride 1,000 ml @ 100 mls/hr Q10H 01/16/18 11:30 01/17/18 07:50 100 MLS/HR Labs: Lab Laboratory Tests Test 01/16/18 10:54 01/17/18 04:43 Erythrocyte Sedimentation Rate 23 (0-15) Sodium Level 149 mmol/L (136-145) Potassium Level 3.5 mmol/L (3.5-5.1) Chloride Level 115 mmol/L (98-107) Carbon Dioxide Level 28 mmol/L (21-32) Anion Gap 6 (6-14) Blood Urea Nitrogen 6 mg/dL (8-26) Creatinine 1.0 mg/dL (0.7-1.3) Estimated GFR (Cockcroft-Gault) 88.9 Glucose Level 89 mg/dL (70-99) Calcium Level 7.8 mg/dL (8.5-10.1) Phosphorus Level 2.9 mg/dL (2.6-4.7) Albumin 2.2 g/dL (3.4-5.0) Objective: Assessment: Bacteremia 1/2 bottles GPR ,ID and NUZHAT pending no localizing source for infection s/p one dose of ceftriaxone , no fevers or leucocytosis GPR in likely contaminant Confusion with underlying dementia likely metabolic CT head neg Hypernatremia, LADY Dementia Plan: Plan of Care Monitor closely off antibiotics f/u GPR in low threshold to start on antibiotics if has any hemodynamically instability or fever monitor c/s and labs in NERY Delvalle MD Jan 17, 2018 09:02
[2018-01-17] MEDS: ASPIRIN CHEWABLE 81 MG TABLET. PO SCH (09:08)
[2018-01-17] MEDS: DIVALPROEX DELAYED RELEASE 500 MG TABLET.DR. PO SCH (09:08)
[2018-01-17] MEDS: MEMANTINE 10 MG TABLET. PO SCH ×2 (09:08→21:00)
[2018-01-17] MEDS: DONEPEZIL HCL 10 MG TABLET. PO SCH (09:08)
[2018-01-17] MEDS: cloNIDine HCL 0.1 MG TABLET PO SCH (09:09)
[2018-01-17] MEDS: MULTIVITAMIN with MINERAL TABLET. PO SCH (09:09)
--- NOTE | 2018-01-17 11:45 | PDOC ---
Renal-Progress Notes Subjective Notes Notes NONE History of Present Illness Hx of present illness STABLE Vitals Vitals Vital Signs Date Time Temp Pulse Resp B/P (MAP) Pulse Ox O2 Delivery O2 Flow Rate FiO2 01/17/18 09:09 57 147/66 01/17/18 08:00 Room Air 01/17/18 07:25 98.1 16 96 98.1 Weight Weight [ ] I.O. Intake and Output Intake and Output 01/17/18 07:00 Intake Total 400 ml Output Total 0 ml Balance 400 ml Intake Oral 400 ml Output Urine Total 0 ml # Voids 1 Labs Labs Laboratory Tests Test 01/17/18 04:43 Sodium Level 149 mmol/L (136-145) Potassium Level 3.5 mmol/L (3.5-5.1) Chloride Level 115 mmol/L (98-107) Carbon Dioxide Level 28 mmol/L (21-32) Anion Gap 6 (6-14) Blood Urea Nitrogen 6 mg/dL (8-26) Creatinine 1.0 mg/dL (0.7-1.3) Estimated GFR (Cockcroft-Gault) 88.9 Glucose Level 89 mg/dL (70-99) Calcium Level 7.8 mg/dL (8.5-10.1) Phosphorus Level 2.9 mg/dL (2.6-4.7) Albumin 2.2 g/dL (3.4-5.0) Micro Micro Microbiology 01/15/18 Blood Culture - Preliminary, Resulted NO GROWTH AFTER 1 DAY Review of Systems Constitutional: yes: no symptom reported, other (CONFUSED) Physical Exam General Appearance: no apparent distress Respiratory: bilateral CTA Abdomen: soft, bowel sounds present Extremities: pulses present Neurology: alert, oriented Assessment Assessment IMP DEHYDRATION UTI HYPERNATREMIA LADY-BETTER PLAN ANTIBIOTICS HYPOTONIC SALINE WILL FOLLOW MC DENSON MD Jan 17, 2018 11:45
[2018-01-17 11:59] VITALS: BP 103/67
[2018-01-17] MEDS ORDERED: BARIUM SULFATE 40% (APPLE) 148 GM PWD. PO ONE (12:30)
--- NOTE | 2018-01-17 14:26 | RAD ---
Video dysphasia study, 01/17/2018: History: Dysphasia The swallowing mechanism was examined fluoroscopically in the lateral projection with the patient ingested a variety of food materials mixed with barium. 2.9 minutes of fluoroscopy time was utilized. One video fluoroscopic loop was recorded by a member of the speech Department. When ingesting the honey thickened materials as well as the pudding consistency material there was a marked delay in passage of material from the mouth into the hypopharynx. The materials extended into the vallecula with further delay in initiation of pharyngeal peristalsis. The delay tended to be greater than 10 seconds. The patient's level of alertness is poor and that may be contributing to these findings. Once pharyngeal peristalsis was initiated the majority of the barium bolus passed through the cervical esophagus with no significant laryngeal penetration or aspiration. There did tend to be a moderate amount of intermittent vallecular and piriform sinus residue. We did not attempt thin liquids or solids at this time. IMPRESSION: Abnormal swallowing mechanism as described above. The patient appears to be at risk for aspiration although no aspiration was currently observed.
[2018-01-17 15:27] VITALS: BP 127/71
[2018-01-17] MEDS: AMINO AC 3%/ELECTROLYTE/GLYCER 1,000 ML IV SCH (15:59)
[2018-01-17 19:42] VITALS: BP 130/66
[2018-01-17] MEDS: DIVALPROEX DELAYED RELEASE 250 MG TABLET.DR. PO SCH (21:00)
[2018-01-17] MEDS: ATORVASTATIN CALCIUM 10 MG TABLET. PO SCH (21:00)
[2018-01-17 23:14] VITALS: BP 160/65
[2018-01-18 02:55] VITALS: BP 160/89
[2018-01-18] MEDS: AMINO AC 3%/ELECTROLYTE/GLYCER 1,000 ML IV SCH ×2 (03:41→17:30)
[2018-01-18 07:20] VITALS: BP 181/96
[2018-01-18] MEDS: MULTIVITAMIN with MINERAL TABLET. PO SCH (09:00)
[2018-01-18] MEDS: ASPIRIN CHEWABLE 81 MG TABLET. PO SCH (09:00)
[2018-01-18] MEDS: MEMANTINE 10 MG TABLET. PO SCH ×2 (09:00→21:00)
[2018-01-18] MEDS: cloNIDine HCL 0.1 MG TABLET PO SCH (09:00)
[2018-01-18] MEDS: DIVALPROEX DELAYED RELEASE 500 MG TABLET.DR. PO SCH (09:00)
[2018-01-18] MEDS: DONEPEZIL HCL 10 MG TABLET. PO SCH (09:00)
--- NOTE | 2018-01-18 10:16 | PDOC ---
Infectious Disease Note Subjective: Subjective pt is alert awake more today says is ok but remains confused, follows simple commands ROS: ROS Negative except for above. Vital Signs: Vital Signs Vital Signs Date Time Temp Pulse Resp B/P (MAP) Pulse Ox O2 Delivery O2 Flow Rate FiO2 01/18/18 09:00 63 181/96 01/18/18 08:00 Room Air 01/18/18 07:20 98.1 17 100 98.1 Physical Exam: PHYSICAL EXAM General appearance - alert,well appearing, and in no distress,comfortable Head - normal Neck supple Chest - clear Heart - S1 S2 Abdomen - soft, nontender, nondistended, no masses or organomegaly Neurological - alert awake, answers simple questions,moves all 4 ext Extremities - no pedal edema Skin - warm and dry, no gen rash Medications: Inpatient Meds: Current Medications Medications (Trade) Dose Ordered Sig/Renata Start Time Stop Time Status Last Admin Dose Admin Acetaminophen (Tylenol) 650 mg PRN Q6HRS PRN 01/16/18 09:45 Amino Acids/ Glycerin/ Electrolytes 1,000 ml @ 80 mls/hr [id number] 01/17/18 15:30 01/18/18 03:41 80 MLS/HR Aspirin (Children'S Aspirin) 81 mg DAILY 01/16/18 10:00 01/17/18 09:08 81 MG Atorvastatin Calcium (Lipitor) 10 mg QHS 01/16/18 21:00 01/16/18 21:51 10 MG Barium Sulfate (Varibar Thin Liquid Apple) 148 gm 1X ONCE 01/17/18 12:30 01/17/18 12:31 DC Ceftriaxone Sodium (Rocephin) 1 gm 1X ONCE 01/16/18 07:00 01/16/18 07:01 DC 01/16/18 06:47 1 GM Clonidine HCl (Catapres) 0.1 mg DAILY 01/17/18 09:00 01/17/18 09:09 0.1 MG Divalproex Sodium (Depakote) 500 mg DAILY 01/16/18 10:00 01/17/18 09:08 500 MG Donepezil HCl (Aricept) 10 mg DAILY 01/16/18 10:00 01/17/18 09:08 10 MG Magnesium Hydroxide (Milk Of Magnesia) 800 mg DAILY PRN 01/16/18 09:45 Memantine (Namenda) 10 mg BID 01/16/18 10:00 01/17/18 09:08 10 MG Multivitamins (Thera M Plus) 1 tab DAILY 01/16/18 10:00 01/17/18 09:09 1 TAB Nystatin (Nystatin Oral Susp) 5 ml 1X ONCE 01/15/18 23:00 01/15/18 23:01 DC 01/15/18 23:00 5 ML Ondansetron HCl (Zofran) 4 mg PRN Q6HRS PRN 01/16/18 09:45 Sodium Chloride 1,000 ml @ 100 mls/hr Q10H 01/16/18 11:30 01/17/18 15:19 DC 01/17/18 07:50 100 MLS/HR Labs: Micro RUN DATE: 01/16/18 PAGE 1 RUN TIME: 1012 [facility] [address] [place] [address] Drew Luevano M.D., [employer] PATIENT: SANG CAMARA ACCT: [id number] LOC: [address] [place] [address] U : [id number] AGE/SX: 72/M ROOM: [facility] REG : 01/15/[address]: SUSIE ADAMS MD : 1945 BED: 1 DIS : STATUS: ADM IN TLOC: SPEC #: [id number] ZULEIKA: 01/15/18 STATUS: COMP REQ #: [id number] RECD: 01/15/[address] [facility] [address]: DEEPTI FRITZ DO SOURCE: BLOOD ENTR: 01/15/18-[address] [facility] [address]: ROSA HAIR [facility]: ORDERED: BCULT Procedure Result BLOOD CULTURE Final LARGE GRAM POSITIVE RODS, IN 1 OF 4 BOTTLES, TWO SETS DRAWN. CALLED TO FREDO CARPIO RN ON 6S AT 10:05 ON 01/16/18 DW MT SENT TO [facility] FOR FURTHER WORKUP. Objective: Assessment: Bacteremia 1/2 bottles GPR ,ID and NUZHAT pending no localizing source for infection s/p one dose of ceftriaxone , no fevers or leucocytosis GPR in likely contaminant Confusion with underlying dementia likely metabolic CT head neg Hypernatremia, LADY Dementia Plan: Plan of Care Monitor closely off antibiotics f/u GPR in low threshold to start on antibiotics if has any hemodynamically instability or fever monitor c/s and labs in NERY Delvalle MD Jan 18, 2018 10:16
[2018-01-18 11:23] VITALS: BP 179/81
--- NOTE | 2018-01-18 11:24 | PDOC ---
Renal-Progress Notes Subjective Notes Notes NO NEW COMPLAINTS History of Present Illness Hx of present illness STABLE Vitals Vitals Vital Signs Date Time Temp Pulse Resp B/P (MAP) Pulse Ox O2 Delivery O2 Flow Rate FiO2 01/18/18 09:00 63 181/96 01/18/18 08:00 Room Air 01/18/18 07:20 98.1 17 100 98.1 Weight Weight [ ] I.O. Intake and Output Intake and Output 01/18/18 07:00 Intake Total 0 ml Balance 0 ml Intake Oral 0 ml # Voids 5 Micro Micro Microbiology 01/15/18 Blood Culture - Preliminary, Resulted NO GROWTH AFTER 2 DAYS 01/16/18 Urine Culture - Preliminary, Resulted 01/16/18 Urine Culture Result 1 (NUZHAT) - Preliminary, Resulted Review of Systems Constitutional: yes: no symptom reported, other (CONFUSED) Physical Exam General Appearance: no apparent distress Respiratory: bilateral CTA Abdomen: soft, bowel sounds present Extremities: pulses present Neurology: alert, oriented Assessment Assessment IMP DEHYDRATION UTI HYPERNATREMIA LADY-BETTER FAILED SWALLOW STUDY PLAN ANTIBIOTICS PROCALAMINE WILL FOLLOW MC DENSON MD Jan 18, 2018 11:24
--- NOTE | 2018-01-18 13:44 | PDOC ---
PROGRESS NOTES Chief Complaint Chief Complaint LATE ENTRY, pt seen 01/17 Hypernatremia, dry Encephalopathy, metabolic-secondary to hypernatremia along with other comorbidities? possible progression of dementia Hypertension, dyslipidemia, chronic stable AK I VMN-on half normal saline by renal moderate malnutrition+ DNR Generalized weakness, frailty SNU resident History of Present Illness History of Present Illness Renal consult folliwng failed swallow eval, PPN staretd cont current Vitals Vitals Vital Signs Date Time Temp Pulse Resp B/P (MAP) Pulse Ox O2 Delivery O2 Flow Rate FiO2 01/18/18 11:23 98.8 60 16 179/81 (113) 98 Room Air 98.8 Physical Exam Physical Exam General appearance - alert,well appearing, and in no distress,comfortable Head - normal Neck supple Chest - clear Heart - S1 S2 Abdomen - soft, nontender, nondistended, no masses or organomegaly Neurological - alert awake, answers simple questions,moves all 4 ext Extremities - no pedal edema Skin - warm and dry, no gen rash General: Alert, Cooperative, No acute distress Heart: Regular rate, Normal S1, Normal S2 Lungs: Clear Abdomen: Normal bowel sounds, Soft, No tenderness, No hepatosplenomegaly, No masses Extremities: No clubbing, No cyanosis, No edema, Normal pulses, No tenderness/ swelling Skin: No rashes, No breakdown, No significant lesion Assessment and Plan Assessmemt and Plan Problems Medical Problems: (1) Acute renal insufficiency Status: Acute (2) Altered mental status Status: Acute (3) Hypernatremia Status: Acute (4) Thrush Status: Acute Comment Review of Relevant I have reviewed the following items grisel (where applicable) has been applied. Labs Laboratory Tests Test 01/17/18 04:43 Sodium Level 149 mmol/L (136-145) Potassium Level 3.5 mmol/L (3.5-5.1) Chloride Level 115 mmol/L (98-107) Carbon Dioxide Level 28 mmol/L (21-32) Anion Gap 6 (6-14) Blood Urea Nitrogen 6 mg/dL (8-26) Creatinine 1.0 mg/dL (0.7-1.3) Estimated GFR (Cockcroft-Gault) 88.9 Glucose Level 89 mg/dL (70-99) Calcium Level 7.8 mg/dL (8.5-10.1) Phosphorus Level 2.9 mg/dL (2.6-4.7) Albumin 2.2 g/dL (3.4-5.0) Microbiology 01/15/18 Blood Culture - Preliminary, Resulted NO GROWTH AFTER 2 DAYS 01/16/18 Urine Culture - Preliminary, Resulted 01/16/18 Urine Culture Result 1 (NUZHAT) - Preliminary, Resulted Medications Current Medications Sodium Chloride 1,000 ml @ 1,000 mls/hr 1X ONCE IV Last administered on at 20:30; Start 01/15/18 at 20:30; Stop 01/15/18 at 21:29; Status DC Ceftriaxone Sodium 50 ml @ 100 mls/hr 1X ONCE IV ; Start 01/15/18 at 23:00; Stop 01/15/18 at 23:29; Status Cancel Nystatin (Nystatin Oral Susp) 5 ml 1X ONCE SWSW Last administered on at 23:00; Start 01/15/18 at 23:00; Stop 01/15/18 at 23:01; Status DC Ondansetron HCl (Zofran) 4 mg PRN Q8HRS PRN IV NAUSEA/VOMITING 1ST CHOICE; Start 01/15/18 at 23:00; Stop 01/16/18 at 09:35; Status DC Ceftriaxone Sodium (Rocephin) 1 gm 1X ONCE IVP Last administered on 01/16/18at 06:47; Start 01/16/18 at 07:00; Stop 01/16/18 at 07:01; Status DC Ondansetron HCl (Zofran) 4 mg PRN Q6HRS PRN IV NAUSEA/VOMITING 1ST CHOICE; Start 01/16/18 at 09:45 Acetaminophen (Tylenol) 500 mg PRN Q6HRS PRN PO MILD PAIN / TEMP; Start at 09:45; Status UNV Acetaminophen (Tylenol) 650 mg PRN Q6HRS PRN PO PAIN; Start 01/16/18 at 09:45 Aspirin (Children'S Aspirin) 81 mg DAILY PO Last administered on 01/17/18at 09: 08; Start 01/16/18 at 10:00 Atorvastatin Calcium (Lipitor) 10 mg QHS PO Last administered on 01/16/18at 21: 51; Start 01/16/18 at 21:00 Clonidine HCl (Catapres) 0.1 mg DAILY PO Last administered on 01/17/18 09:09; Start 01/17/18 at 09:00 Magnesium Hydroxide (Milk Of Magnesia) 800 mg DAILY PRN PO CONSTIPATION; Start 01/16/18 at 09:45 Divalproex Sodium (Depakote) 250 mg QHS PO Last administered on 01/16/18at 21:51 ; Start 01/16/18 at 21:00 Divalproex Sodium (Depakote) 500 mg DAILY PO Last administered on 01/17/18at 09: 08; Start 01/16/18 at 10:00 Donepezil HCl (Aricept) 10 mg DAILY PO Last administered on 01/17/18 09:08; Start 01/16/18 at 10:00 Memantine (Namenda) 10 mg BID PO Last administered on 01/17/18 09:08; Start at 10:00 Multivitamins (Thera M Plus) 1 tab DAILY PO Last administered on 01/17/18at 09: 09; Start 01/16/18 at 10:00 Sodium Chloride 1,000 ml @ 100 mls/hr Q10H IV Last administered on 01/17/18at 07:50; Start 01/16/18 at 11:30; Stop 01/17/18 at 15:19; Status DC Barium Sulfate (Varibar Thin Liquid Apple) 148 gm 1X ONCE PO ; Start 01/17/18 at 12:30; Stop 01/17/18 at 12:31; Status DC Amino Acids/ Glycerin/ Electrolytes 1,000 ml @ 80 mls/hr [id number] IV Last administered on 01/18/18at 03:41; Start 01/17/18 at 15:30 Active Scripts Active Cefpodoxime Proxetil 100 Mg Tablet 200 Mg PO BID 10 Days Reported Chlorhexidine Flavor (Chlorhexidine) 1 Ml Liquid 1 Ml MC Milk Of Magnesia (Magnesium Hydroxide) 400 Mg/5 Ml Oral.susp 800 Mg PO PRN PRN Acetaminophen 325 Mg Tablet 650 Mg PO PRN Q6HRS PRN Clonidine Hcl 0.1 Mg Tablet 0.1 Mg PO DAILY Depakote (Divalproex Sodium) 250 Mg Tablet.dr 250 Mg PO QHS Depakote (Divalproex Sodium) 500 Mg Tablet.dr 500 Mg PO DAILY Aricept (Donepezil Hcl) 10 Mg Tablet 1 Tab PO DAILY Namenda Xr (Memantine Hcl) 28 Mg Cap.spr.24 28 Mg PO DAILY Lipitor (Atorvastatin Calcium) 10 Mg Tablet 1 Tab PO QHS Children's Aspirin (Aspirin) 81 Mg Tab.chew 81 Mg PO DAILY Multi-Vitamin Daily (Multivitamin) 1 Each Tablet 1 Each PO DAILY Vitals/I & O Vital Sign - Last 24 Hours 01/17/18 01/17/18 01/17/18 01/17/18 15:27 19:42 20:00 23:14 Temp 97.9 97.7 98.2 97.9 97.7 98.2 Pulse 50 61 55 Resp 20 16 18 B/P (MAP) 127/71 (89) 130/66 (87) 160/65 (96) Pulse Ox 100 97 99 O2 Delivery Room Air Room Air Room Air Room Air 01/18/18 01/18/18 01/18/18 01/18/18 02:55 07:20 08:00 09:00 Temp 97.7 98.1 97.7 98.1 Pulse 70 63 63 Resp 18 17 B/P (MAP) 160/89 (112) 181/96 (124) 181/96 Pulse Ox 98 100 O2 Delivery Room Air Room Air Room Air 01/18/18 11:23 Temp 98.8 98.8 Pulse 60 Resp 16 B/P (MAP) 179/81 (113) Pulse Ox 98 O2 Delivery Room Air Intake and Output 01/17/18 01/17/18 01/18/18 15:00 23:00 07:00 Intake Total 0 ml Balance 0 ml JASON GUAJARDO MD Jan 18, 2018 13:44
--- NOTE | 2018-01-18 13:47 | PDOC ---
PROGRESS NOTES Chief Complaint Chief Complaint dysphagia Encephalopathy, metabolic-secondary to hypernatremia along with other comorbidities? possible progression of dementia Hypertension, dyslipidemia, chronic stable AK I VMN-on half normal saline by renal moderate malnutrition+ DNR Generalized weakness, frailty SNU resident History of Present Illness History of Present Illness much more alert today, may be able to pass swallow eval, ST following, cont curernt on PPN Renal consult folliwng Vitals Vitals Vital Signs Date Time Temp Pulse Resp B/P (MAP) Pulse Ox O2 Delivery O2 Flow Rate FiO2 01/18/18 11:23 98.8 60 16 179/81 (113) 98 Room Air 98.8 Physical Exam Physical Exam General appearance - alert,well appearing, and in no distress,comfortable Head - normal Neck supple Chest - clear Heart - S1 S2 Abdomen - soft, nontender, nondistended, no masses or organomegaly Neurological - alert awake, answers simple questions,moves all 4 ext Extremities - no pedal edema Skin - warm and dry, no gen rash General: Alert, Cooperative, No acute distress Heart: Regular rate, Normal S1, Normal S2 Lungs: Clear Abdomen: Normal bowel sounds, Soft, No tenderness, No hepatosplenomegaly, No masses Extremities: No clubbing, No cyanosis, No edema, Normal pulses, No tenderness/ swelling Skin: No rashes, No breakdown, No significant lesion Assessment and Plan Assessmemt and Plan Problems Medical Problems: (1) Acute renal insufficiency Status: Acute (2) Altered mental status Status: Acute (3) Hypernatremia Status: Acute (4) Thrush Status: Acute Comment Review of Relevant I have reviewed the following items grisel (where applicable) has been applied. Labs Laboratory Tests Test 01/17/18 04:43 Sodium Level 149 mmol/L (136-145) Potassium Level 3.5 mmol/L (3.5-5.1) Chloride Level 115 mmol/L (98-107) Carbon Dioxide Level 28 mmol/L (21-32) Anion Gap 6 (6-14) Blood Urea Nitrogen 6 mg/dL (8-26) Creatinine 1.0 mg/dL (0.7-1.3) Estimated GFR (Cockcroft-Gault) 88.9 Glucose Level 89 mg/dL (70-99) Calcium Level 7.8 mg/dL (8.5-10.1) Phosphorus Level 2.9 mg/dL (2.6-4.7) Albumin 2.2 g/dL (3.4-5.0) Microbiology 01/15/18 Blood Culture - Preliminary, Resulted NO GROWTH AFTER 2 DAYS 01/16/18 Urine Culture - Preliminary, Resulted 01/16/18 Urine Culture Result 1 (NUZHAT) - Preliminary, Resulted Medications Current Medications Sodium Chloride 1,000 ml @ 1,000 mls/hr 1X ONCE IV Last administered on at 20:30; Start 01/15/18 at 20:30; Stop 01/15/18 at 21:29; Status DC Ceftriaxone Sodium 50 ml @ 100 mls/hr 1X ONCE IV ; Start 01/15/18 at 23:00; Stop 01/15/18 at 23:29; Status Cancel Nystatin (Nystatin Oral Susp) 5 ml 1X ONCE SWSW Last administered on at 23:00; Start 01/15/18 at 23:00; Stop 01/15/18 at 23:01; Status DC Ondansetron HCl (Zofran) 4 mg PRN Q8HRS PRN IV NAUSEA/VOMITING 1ST CHOICE; Start 01/15/18 at 23:00; Stop 01/16/18 at 09:35; Status DC Ceftriaxone Sodium (Rocephin) 1 gm 1X ONCE IVP Last administered on 01/16/18at 06:47; Start 01/16/18 at 07:00; Stop 01/16/18 at 07:01; Status DC Ondansetron HCl (Zofran) 4 mg PRN Q6HRS PRN IV NAUSEA/VOMITING 1ST CHOICE; Start 01/16/18 at 09:45 Acetaminophen (Tylenol) 500 mg PRN Q6HRS PRN PO MILD PAIN / TEMP; Start at 09:45; Status UNV Acetaminophen (Tylenol) 650 mg PRN Q6HRS PRN PO PAIN; Start 01/16/18 at 09:45 Aspirin (Children'S Aspirin) 81 mg DAILY PO Last administered on 01/17/18at 09: 08; Start 01/16/18 at 10:00 Atorvastatin Calcium (Lipitor) 10 mg QHS PO Last administered on 01/16/18at 21: 51; Start 01/16/18 at 21:00 Clonidine HCl (Catapres) 0.1 mg DAILY PO Last administered on 01/17/18 09:09; Start 01/17/18 at 09:00 Magnesium Hydroxide (Milk Of Magnesia) 800 mg DAILY PRN PO CONSTIPATION; Start 01/16/18 at 09:45 Divalproex Sodium (Depakote) 250 mg QHS PO Last administered on 01/16/18at 21:51 ; Start 01/16/18 at 21:00 Divalproex Sodium (Depakote) 500 mg DAILY PO Last administered on 01/17/18at 09: 08; Start 01/16/18 at 10:00 Donepezil HCl (Aricept) 10 mg DAILY PO Last administered on 01/17/18 09:08; Start 01/16/18 at 10:00 Memantine (Namenda) 10 mg BID PO Last administered on 01/17/18 09:08; Start at 10:00 Multivitamins (Thera M Plus) 1 tab DAILY PO Last administered on 01/17/18at 09: 09; Start 01/16/18 at 10:00 Sodium Chloride 1,000 ml @ 100 mls/hr Q10H IV Last administered on 01/17/18at 07:50; Start 01/16/18 at 11:30; Stop 01/17/18 at 15:19; Status DC Barium Sulfate (Varibar Thin Liquid Apple) 148 gm 1X ONCE PO ; Start 01/17/18 at 12:30; Stop 01/17/18 at 12:31; Status DC Amino Acids/ Glycerin/ Electrolytes 1,000 ml @ 80 mls/hr [id number] IV Last administered on 01/18/18at 03:41; Start 01/17/18 at 15:30 Active Scripts Active Cefpodoxime Proxetil 100 Mg Tablet 200 Mg PO BID 10 Days Reported Chlorhexidine Flavor (Chlorhexidine) 1 Ml Liquid 1 Ml MC Milk Of Magnesia (Magnesium Hydroxide) 400 Mg/5 Ml Oral.susp 800 Mg PO PRN PRN Acetaminophen 325 Mg Tablet 650 Mg PO PRN Q6HRS PRN Clonidine Hcl 0.1 Mg Tablet 0.1 Mg PO DAILY Depakote (Divalproex Sodium) 250 Mg Tablet.dr 250 Mg PO QHS Depakote (Divalproex Sodium) 500 Mg Tablet.dr 500 Mg PO DAILY Aricept (Donepezil Hcl) 10 Mg Tablet 1 Tab PO DAILY Namenda Xr (Memantine Hcl) 28 Mg Cap.spr.24 28 Mg PO DAILY Lipitor (Atorvastatin Calcium) 10 Mg Tablet 1 Tab PO QHS Children's Aspirin (Aspirin) 81 Mg Tab.chew 81 Mg PO DAILY Multi-Vitamin Daily (Multivitamin) 1 Each Tablet 1 Each PO DAILY Vitals/I & O Vital Sign - Last 24 Hours 01/17/18 01/17/18 01/17/18 01/17/18 15:27 19:42 20:00 23:14 Temp 97.9 97.7 98.2 97.9 97.7 98.2 Pulse 50 61 55 Resp 20 16 18 B/P (MAP) 127/71 (89) 130/66 (87) 160/65 (96) Pulse Ox 100 97 99 O2 Delivery Room Air Room Air Room Air Room Air 01/18/18 01/18/18 01/18/18 01/18/18 02:55 07:20 08:00 09:00 Temp 97.7 98.1 97.7 98.1 Pulse 70 63 63 Resp 18 17 B/P (MAP) 160/89 (112) 181/96 (124) 181/96 Pulse Ox 98 100 O2 Delivery Room Air Room Air Room Air 01/18/18 11:23 Temp 98.8 98.8 Pulse 60 Resp 16 B/P (MAP) 179/81 (113) Pulse Ox 98 O2 Delivery Room Air Intake and Output 01/17/18 01/17/18 01/18/18 15:00 23:00 07:00 Intake Total 0 ml Balance 0 ml JASON GUAJARDO MD Jan 18, 2018 13:47
[2018-01-18 15:41] VITALS: BP 168/81
--- NOTE | 2018-01-18 17:00 | PDOC2 ---
PALLIATIVE CARE Palliative Care Note Palliative Care Consult requested to address goals of care. Patient more alert today. Medical Assessment per medical record: Dysphagia; failed swallow test x 2. Encephalopathy, metabolic-secondary to hypernatremia along with other comorbidities? Dementia Hypertension, dyslipidemia, chronic stable LADY moderate malnutrition+ DNR Generalized weakness, frailty [facility] Spoke with Carina CORONA. Plan family meeting tomorrow at 12pm. REINALDO SONI Jan 18, 2018 17:00
[2018-01-18 19:30] VITALS: BP 168/81
[2018-01-18] MEDS: ATORVASTATIN CALCIUM 10 MG TABLET. PO SCH (21:00)
[2018-01-18] MEDS: DIVALPROEX DELAYED RELEASE 250 MG TABLET.DR. PO SCH (21:00)
[2018-01-18 23:30] VITALS: BP 170/87
[2018-01-19 03:35] VITALS: BP 175/82
[2018-01-19 06:09] LABS: CALCIUM 8.9 mg/dL (8.5-10.1); CREATININE 0.9 mg/dL (0.7-1.3); GFR 100.4; POTASSIUM 3.9 mmol/L (3.5-5.1)
[2018-01-19] MEDS: AMINO AC 3%/ELECTROLYTE/GLYCER 1,000 ML IV SCH (06:19)
[2018-01-19 07:00] VITALS: BP 167/82
[2018-01-19] MEDS: cloNIDine HCL 0.1 MG TABLET PO SCH (09:00)
[2018-01-19] MEDS: ASPIRIN CHEWABLE 81 MG TABLET. PO SCH (09:00)
[2018-01-19] MEDS: MULTIVITAMIN with MINERAL TABLET. PO SCH (09:00)
[2018-01-19] MEDS: MEMANTINE 10 MG TABLET. PO SCH (09:00)
[2018-01-19] MEDS: DONEPEZIL HCL 10 MG TABLET. PO SCH (09:00)
[2018-01-19] MEDS: DIVALPROEX DELAYED RELEASE 500 MG TABLET.DR. PO SCH (09:00)
[2018-01-19] MEDS ORDERED: cloNIDine TTS-1 1 PATCH PATCH.TDWK TD SCH (10:00)
[2018-01-19 11:00] VITALS: BP 151/94
--- NOTE | 2018-01-19 11:10 | PDOC ---
PROGRESS NOTES Chief Complaint Chief Complaint dysphagia Encephalopathy, metabolic-secondary to hypernatremia along with other comorbidities? possible progression of dementia Hypertension, dyslipidemia, chronic stable LADY, VMN-on half normal saline by renal moderate malnutrition DNR Generalized weakness, frailty [facility] resident History of Present Illness History of Present Illness pallliative care following much more alert today, discussed with speech, did better with swallow eval, ST following, cont curernt will try to let him eat, this may be his baseline on PPN - wean as able Vitals Vitals Vital Signs Date Time Temp Pulse Resp B/P (MAP) Pulse Ox O2 Delivery O2 Flow Rate FiO2 01/19/18 08:00 Room Air 01/19/18 07:00 98.4 56 18 167/82 (110) 97 98.4 Physical Exam Physical Exam General appearance - alert,well appearing, and in no distress,comfortable Head - normal Neck supple Chest - clear Heart - S1 S2 Abdomen - soft, nontender, nondistended, no masses or organomegaly Neurological - alert awake, answers simple questions,moves all 4 ext Extremities - no pedal edema Skin - warm and dry, no gen rash General: Alert, Cooperative, No acute distress Heart: Regular rate, Normal S1, Normal S2 Lungs: Clear Abdomen: Normal bowel sounds, Soft, No tenderness, No hepatosplenomegaly, No masses Extremities: No clubbing, No cyanosis, No edema, Normal pulses, No tenderness/ swelling Skin: No rashes, No breakdown, No significant lesion Labs LABS Laboratory Tests Test 01/19/18 03:45 Sodium Level 138 mmol/L (136-145) Potassium Level 3.9 mmol/L (3.5-5.1) Chloride Level 103 mmol/L (98-107) Carbon Dioxide Level 25 mmol/L (21-32) Anion Gap 10 (6-14) Blood Urea Nitrogen 13 mg/dL (8-26) Creatinine 0.9 mg/dL (0.7-1.3) Estimated GFR (Cockcroft-Gault) 100.4 Glucose Level 85 mg/dL (70-99) Calcium Level 8.9 mg/dL (8.5-10.1) Assessment and Plan Assessmemt and Plan Problems Medical Problems: (1) Acute renal insufficiency Status: Acute (2) Altered mental status Status: Acute (3) Hypernatremia Status: Acute (4) Thrush Status: Acute Comment Review of Relevant I have reviewed the following items grisel (where applicable) has been applied. Labs Laboratory Tests Test 01/19/18 03:45 Sodium Level 138 mmol/L (136-145) Potassium Level 3.9 mmol/L (3.5-5.1) Chloride Level 103 mmol/L (98-107) Carbon Dioxide Level 25 mmol/L (21-32) Anion Gap 10 (6-14) Blood Urea Nitrogen 13 mg/dL (8-26) Creatinine 0.9 mg/dL (0.7-1.3) Estimated GFR (Cockcroft-Gault) 100.4 Glucose Level 85 mg/dL (70-99) Calcium Level 8.9 mg/dL (8.5-10.1) Laboratory Tests Test 01/19/18 03:45 Sodium Level 138 mmol/L (136-145) Potassium Level 3.9 mmol/L (3.5-5.1) Chloride Level 103 mmol/L (98-107) Carbon Dioxide Level 25 mmol/L (21-32) Anion Gap 10 (6-14) Blood Urea Nitrogen 13 mg/dL (8-26) Creatinine 0.9 mg/dL (0.7-1.3) Estimated GFR (Cockcroft-Gault) 100.4 Glucose Level 85 mg/dL (70-99) Calcium Level 8.9 mg/dL (8.5-10.1) Microbiology 01/15/18 Blood Culture - Preliminary, Resulted NO GROWTH AFTER 3 DAYS 01/16/18 Urine Culture - Final, Complete 01/16/18 Urine Culture Result 1 (NUZHAT) - Final, Complete Medications Current Medications Sodium Chloride 1,000 ml @ 1,000 mls/hr 1X ONCE IV Last administered on at 20:30; Start 01/15/18 at 20:30; Stop 01/15/18 at 21:29; Status DC Ceftriaxone Sodium 50 ml @ 100 mls/hr 1X ONCE IV ; Start 01/15/18 at 23:00; Stop 01/15/18 at 23:29; Status Cancel Nystatin (Nystatin Oral Susp) 5 ml 1X ONCE SWSW Last administered on at 23:00; Start 01/15/18 at 23:00; Stop 01/15/18 at 23:01; Status DC Ondansetron HCl (Zofran) 4 mg PRN Q8HRS PRN IV NAUSEA/VOMITING 1ST CHOICE; Start 01/15/18 at 23:00; Stop 01/16/18 at 09:35; Status DC Ceftriaxone Sodium (Rocephin) 1 gm 1X ONCE IVP Last administered on 01/16/18at 06:47; Start 01/16/18 at 07:00; Stop 01/16/18 at 07:01; Status DC Ondansetron HCl (Zofran) 4 mg PRN Q6HRS PRN IV NAUSEA/VOMITING 1ST CHOICE; Start 01/16/18 at 09:45 Acetaminophen (Tylenol) 500 mg PRN Q6HRS PRN PO MILD PAIN / TEMP; Start at 09:45; Status UNV Acetaminophen (Tylenol) 650 mg PRN Q6HRS PRN PO PAIN; Start 01/16/18 at 09:45 Aspirin (Children'S Aspirin) 81 mg DAILY PO Last administered on 01/17/18 09: 08; Start 01/16/18 at 10:00 Atorvastatin Calcium (Lipitor) 10 mg QHS PO Last administered on 01/16/18at 21: 51; Start 01/16/18 at 21:00 Clonidine HCl (Catapres) 0.1 mg DAILY PO Last administered on 01/17/18 09:09; Start 01/17/18 at 09:00 Magnesium Hydroxide (Milk Of Magnesia) 800 mg DAILY PRN PO CONSTIPATION; Start 01/16/18 at 09:45 Divalproex Sodium (Depakote) 250 mg QHS PO Last administered on 01/16/18at 21:51 ; Start 01/16/18 at 21:00 Divalproex Sodium (Depakote) 500 mg DAILY PO Last administered on 01/17/18 09: 08; Start 01/16/18 at 10:00 Donepezil HCl (Aricept) 10 mg DAILY PO Last administered on 01/17/18 09:08; Start 01/16/18 at 10:00 Memantine (Namenda) 10 mg BID PO Last administered on 01/17/18 09:08; Start at 10:00 Multivitamins (Thera M Plus) 1 tab DAILY PO Last administered on 01/17/18at 09: 09; Start 01/16/18 at 10:00 Sodium Chloride 1,000 ml @ 100 mls/hr Q10H IV Last administered on 01/17/18at 07:50; Start 01/16/18 at 11:30; Stop 01/17/18 at 15:19; Status DC Barium Sulfate (Varibar Thin Liquid Apple) 148 gm 1X ONCE PO ; Start 01/17/18 at 12:30; Stop 01/17/18 at 12:31; Status DC Amino Acids/ Glycerin/ Electrolytes 1,000 ml @ 80 mls/hr [id number] IV Last administered on 01/19/18at 06:19; Start 01/17/18 at 15:30 Nystatin (Nystatin Oral Susp) 5 ml [id number] SWSW ; Start 01/19/18 at 10:00 Clonidine HCl (Catapres Tts-1) 1 patch WEEKLY TD ; Start 01/19/18 at 10:00 Active Scripts Active Cefpodoxime Proxetil 100 Mg Tablet 200 Mg PO BID 10 Days Reported Chlorhexidine Flavor (Chlorhexidine) 1 Ml Liquid 1 Ml MC Milk Of Magnesia (Magnesium Hydroxide) 400 Mg/5 Ml Oral.susp 800 Mg PO PRN PRN Acetaminophen 325 Mg Tablet 650 Mg PO PRN Q6HRS PRN Clonidine Hcl 0.1 Mg Tablet 0.1 Mg PO DAILY Depakote (Divalproex Sodium) 250 Mg Tablet.dr 250 Mg PO QHS Depakote (Divalproex Sodium) 500 Mg Tablet.dr 500 Mg PO DAILY Aricept (Donepezil Hcl) 10 Mg Tablet 1 Tab PO DAILY Namenda Xr (Memantine Hcl) 28 Mg Cap.spr.24 28 Mg PO DAILY Lipitor (Atorvastatin Calcium) 10 Mg Tablet 1 Tab PO QHS Children's Aspirin (Aspirin) 81 Mg Tab.chew 81 Mg PO DAILY Multi-Vitamin Daily (Multivitamin) 1 Each Tablet 1 Each PO DAILY Vitals/I & O Vital Sign - Last 24 Hours 01/18/18 01/18/18 01/18/18 01/18/18 11:23 15:41 19:30 20:00 Temp 98.8 98.1 99.1 98.8 98.1 99.1 Pulse 60 57 60 Resp 16 18 18 B/P (MAP) 179/81 (113) 168/81 (110) 168/81 (110) Pulse Ox 98 96 98 O2 Delivery Room Air Room Air Room Air Room Air 01/18/18 01/19/18 01/19/18 01/19/18 23:30 03:35 07:00 08:00 Temp 98.3 99.0 98.4 98.3 99.0 98.4 Pulse 60 63 56 Resp 18 B/P (MAP) 170/87 (114) 175/82 (113) 167/82 (110) Pulse Ox 98 99 97 O2 Delivery Room Air Room Air Room Air Room Air Intake and Output 01/18/18 01/18/18 01/19/18 15:00 23:00 07:00 Intake Total 0 ml 0 ml Balance 0 ml 0 ml Nutrition Consultation Dietary Evaluation: Recommendations by RD: PPN/TPN Comments: continue PPN at this time palliative care team following Expected Outcomes/Goals: to be determined Malnutrition Findings: Body Fat Depletion (Non Severe: Mild Depletion Weight Status: Appropriate JASON GUAJARDO MD Jan 19, 2018 11:10
[2018-01-19] MEDS: NYSTATIN 100,000 UNITS/ML 5 ML ORAL.SUSP. SWSW SCH ×2 (13:00→13:47)
--- NOTE | 2018-01-19 13:02 | PDOC2 ---
PALLIATIVE CARE Palliative Care Note Palliative Care Patient more alert today. See Result of Swallow Evaluation. Patient taking few sips. Met with patient's sister Carina. Patient has brother and sister who are aware of his illness Reviewed medical condition; (1) Acute renal insufficiency--improved (2) Altered mental status--improved (3) Hypernatremia--improved Patient had been on hospice per Carina. Not eating well since returning from hospital last week. Carina states she does not want a feeding tube. Understands he likely is declining again. Would like him to return to the snf with hospice/comfort care Confiremed Code Status: DNR/DNI Outside the Hospital form signed. Carina states patient's last name is JOSE CAMARA. States he changed his name when he went to the snf. Would like the Hospice Agency previously used at [facility]. Does not remember the name. Above reviewed with Dr. Owen and Neida WIGGINS Plan: DNR/DNI Return to snf with hospice that was seeing him previously. REINALDO SONI Jan 19, 2018 13:02
--- NOTE | 2018-01-19 14:23 | PDOC ---
Infectious Disease Note Subjective: Subjective pt is alert awake denies any complaints ROS: ROS Negative except for above. Vital Signs: Vital Signs Vital Signs Date Time Temp Pulse Resp B/P (MAP) Pulse Ox O2 Delivery O2 Flow Rate FiO2 01/19/18 11:00 97.7 79 18 151/94 (113) 96 Room Air 97.7 Physical Exam: PHYSICAL EXAM General appearance - alert,well appearing, and in no distress,comfortable Head - normal Neck supple Chest - clear Heart - S1 S2 Abdomen - soft, nontender, nondistended, no masses or organomegaly Neurological - alert awake, answers simple questions,moves all 4 ext Extremities - no pedal edema Skin - warm and dry, no gen rash Medications: Inpatient Meds: Current Medications Medications (Trade) Dose Ordered Sig/Renata Start Time Stop Time Status Last Admin Dose Admin Acetaminophen (Tylenol) 650 mg PRN Q6HRS PRN 01/16/18 09:45 Amino Acids/ Glycerin/ Electrolytes 1,000 ml @ 80 mls/hr [id number] 01/17/18 15:30 01/19/18 06:19 80 MLS/HR Aspirin (Children'S Aspirin) 81 mg DAILY 01/16/18 10:00 01/17/18 09:08 81 MG Atorvastatin Calcium (Lipitor) 10 mg QHS 01/16/18 21:00 01/16/18 21:51 10 MG Barium Sulfate (Varibar Thin Liquid Apple) 148 gm 1X ONCE 01/17/18 12:30 01/17/18 12:31 DC Ceftriaxone Sodium (Rocephin) 1 gm 1X ONCE 01/16/18 07:00 01/16/18 07:01 DC 01/16/18 06:47 1 GM Clonidine HCl (Catapres Tts-1) 1 patch WEEKLY 01/19/18 10:00 01/19/18 13:52 1 PATCH Clonidine HCl (Catapres) 0.1 mg DAILY 01/17/18 09:00 01/17/18 09:09 0.1 MG Divalproex Sodium (Depakote) 500 mg DAILY 01/16/18 10:00 01/17/18 09:08 500 MG Donepezil HCl (Aricept) 10 mg DAILY 01/16/18 10:00 01/17/18 09:08 10 MG Magnesium Hydroxide (Milk Of Magnesia) 800 mg DAILY PRN 01/16/18 09:45 Memantine (Namenda) 10 mg BID 01/16/18 10:00 01/17/18 09:08 10 MG Multivitamins (Thera M Plus) 1 tab DAILY 01/16/18 10:00 01/17/18 09:09 1 TAB Nystatin (Nystatin Oral Susp) 5 ml [id number] 01/19/18 10:00 01/19/18 13:47 5 ML Ondansetron HCl (Zofran) 4 mg PRN Q6HRS PRN 01/16/18 09:45 Sodium Chloride 1,000 ml @ 100 mls/hr Q10H 01/16/18 11:30 01/17/18 15:19 DC 01/17/18 07:50 100 MLS/HR Labs: Lab Laboratory Tests Test 01/19/18 03:45 Sodium Level 138 mmol/L (136-145) Potassium Level 3.9 mmol/L (3.5-5.1) Chloride Level 103 mmol/L (98-107) Carbon Dioxide Level 25 mmol/L (21-32) Anion Gap 10 (6-14) Blood Urea Nitrogen 13 mg/dL (8-26) Creatinine 0.9 mg/dL (0.7-1.3) Estimated GFR (Cockcroft-Gault) 100.4 Glucose Level 85 mg/dL (70-99) Calcium Level 8.9 mg/dL (8.5-10.1) Micro RUN DATE: 01/16/18 PAGE 1 RUN TIME: 1012 [facility] [address] [place] [address] Drew Luevano M.D., [place] PATIENT: SANG CAMARA ACCT: [id number] LOC: [address] [place] [address] U : [id number] AGE/SX: 72/M ROOM: 3 REG : 01/15/[address]: SUSIE ADAMS MD : 1945 BED: 1 DIS : STATUS: ADM IN TLOC: SPEC #: [id number] ZULEIKA: 01/15/18 STATUS: COMP REQ #: [id number] RECD: 01/15/[address]: DEEPIT FRITZ DO SOURCE: BLOOD ENTR: 01/15/18-[address] [facility] [address]: [facility]: ORDERED: BCULT Procedure Result BLOOD CULTURE Final LARGE GRAM POSITIVE RODS, IN 1 OF 4 BOTTLES, TWO SETS DRAWN. CALLED TO FREDO CARPIO RN ON 6S AT 10:05 ON 01/16/18 DW MT SENT TO [facility] FOR FURTHER WORKUP. Objective: Assessment: Bacteremia 1/2 bottles bacillus ikely contaminant Confusion with underlying dementia likely metabolic improving CT head neg Hypernatremia, LADY resolving Dementia Plan: Plan of Care cont observation will sign out ,call with questions NERY OLIVA MD Jan 19, 2018 14:23
--- NOTE | 2018-01-19 14:54 | PDOC ---
Renal-Progress Notes Subjective Notes Notes NO NEW COMPLAINTS History of Present Illness Hx of present illness STABLE Vitals Vitals Vital Signs Date Time Temp Pulse Resp B/P (MAP) Pulse Ox O2 Delivery O2 Flow Rate FiO2 01/19/18 11:00 97.7 79 18 151/94 (113) 96 Room Air 97.7 Weight Weight [ ] I.O. Intake and Output Intake and Output 01/19/18 07:00 Intake Total 0 ml Balance 0 ml Intake Oral 0 ml # Voids 7 # Bowel Movements 1 Labs Labs Laboratory Tests Test 01/19/18 03:45 Sodium Level 138 mmol/L (136-145) Potassium Level 3.9 mmol/L (3.5-5.1) Chloride Level 103 mmol/L (98-107) Carbon Dioxide Level 25 mmol/L (21-32) Anion Gap 10 (6-14) Blood Urea Nitrogen 13 mg/dL (8-26) Creatinine 0.9 mg/dL (0.7-1.3) Estimated GFR (Cockcroft-Gault) 100.4 Glucose Level 85 mg/dL (70-99) Calcium Level 8.9 mg/dL (8.5-10.1) Micro Micro Microbiology 01/15/18 Blood Culture - Preliminary, Resulted NO GROWTH AFTER 3 DAYS 01/16/18 Urine Culture - Final, Complete 01/16/18 Urine Culture Result 1 (NUZHAT) - Final, Complete Review of Systems Constitutional: yes: no symptom reported, other (CONFUSED) Physical Exam General Appearance: no apparent distress Respiratory: bilateral CTA Abdomen: soft, bowel sounds present Extremities: pulses present Neurology: alert, oriented Assessment Assessment IMP DEHYDRATION UTI HYPERNATREMIA-RESOLVED LADY-RESOLVED FAILED SWALLOW STUDY PLAN WILL SIGN OFF MC DENSON MD Jan 19, 2018 14:54
--- NOTE | 2018-01-19 15:43 | DISCH ---
DISCHARGE DISCHARGE INFORMATION: DISCHARGE DATE: Jan 19, 2018 FINAL DIAGNOSIS Problems Medical Problems: (1) Acute renal insufficiency Status: Acute (2) Altered mental status Status: Acute (3) Hypernatremia Status: Acute (4) Thrush Status: Acute CONDITION ON DISCHARGE: Stable CODE STATUS: Code Status: DNR/DNI HOSPICE: HOSPICE: Yes HOSPICE EVAL & TREAT: Yes POST DISCHARGE ORDERS: ACTIVITY ORDERS: Resume previous activity, Activity as tolerated WEIGHT BEARING STATUS: No restrictions, As tolerated DIET AFTER DISCHARGE: Cardiac CHECKS AFTER DISCHARGE: CHECKS AFTER DISCHARGE: Check blood press - daily TREATMENT/EQUIPMENT ORDERS: ADAPTIVE EQUIPMENT NEEDED: None Physical Therapy For: Evalulation/Treatment Occupational Therapy For: Evaluation/Treatment Speech Language Pathology For: Evaluation/Treatment DISCHARGE MEDICATIONS: Home Meds Active Scripts Cefpodoxime Proxetil (CEFPODOXIME PROXETIL) 100 Mg Tablet, 200 MG PO BID for 10 Days, #20 TAB Prov:ITA VALDES MD 01/02/18 Reported Medications Chlorhexidine (CHLORHEXIDINE FLAVOR) 1 Ml Liquid, 1 ML MC, LIQUID 06/06/16 Magnesium Hydroxide (MILK OF MAGNESIA) 400 Mg/5 Ml Oral.susp, 800 MG PO PRN PRN for CONSTIPATION 06/06/16 Acetaminophen (ACETAMINOPHEN) 325 Mg Tablet, 650 MG PO PRN Q6HRS PRN for PAIN 06/06/16 Clonidine Hcl (CLONIDINE HCL) 0.1 Mg Tablet, 0.1 MG PO DAILY, TAB 06/06/16 Divalproex Sodium (DEPAKOTE) 250 Mg Tablet.dr, 250 MG PO QHS, TAB 06/06/16 Divalproex Sodium (DEPAKOTE) 500 Mg Tablet.dr, 500 MG PO DAILY, TAB 06/06/16 Donepezil Hcl (ARICEPT) 10 Mg Tablet, 1 TAB PO DAILY, #90 TAB 3 Refills 06/06/16 Memantine Hcl (NAMENDA XR) 28 Mg Cap.spr.24, 28 MG PO DAILY, TAB.SR 06/06/16 Atorvastatin Calcium (LIPITOR) 10 Mg Tablet, 1 TAB PO QHS, #90 TAB 1 Refill 06/06/16 Aspirin (Children's Aspirin) 81 Mg Tab.chew, 81 MG PO DAILY, TAB.CHEW 09/11/13 Multivitamin (MULTI-VITAMIN DAILY) 1 Each Tablet, 1 EACH PO DAILY 09/11/13 JASON GUAJARDO MD Jan 19, 2018 15:43
== END 2018-01-19 17:23 | disposition hospice, inpatient (51) | DRG 682 ==
LOC: ER 19:42 → 6 SOUTH 22:45
PROVIDERS: ADMIT Internal Medicine; ATTEND Internal Medicine
DX: N17.0 Acute kidney failure with tubular necrosis (principal); G93.41 Metabolic encephalopathy; E87.0 Hyperosmolality and hypernatremia; E44.0 Moderate protein-calorie malnutrition; R78.81 Bacteremia; N39.0 Urinary tract infection, site not specified; B37.9 Candidiasis, unspecified; E78.00 Pure hypercholesterolemia, unspecified; F03.90 Unspecified dementia, unspecified severity, without behavioral disturbance, psychotic disturbance, mood disturbance, and anxiety; I10 Essential (primary) hypertension; E78.5 Hyperlipidemia, unspecified; E86.0 Dehydration; R13.10 Dysphagia, unspecified; Z66 Do not resuscitate; Z86.73 Personal history of transient ischemic attack (TIA), and cerebral infarction without residual deficits; Z68.20 Body mass index [BMI] 20.0-20.9, adult; Z79.899 Other long term (current) drug therapy; Z87.01 Personal history of pneumonia (recurrent)
CPT/HCPCS: 36415; 70450; 71045; 74230; 80048; 80053; 80069; 80164; 80307; 81001; 82140; 82553; 83605; 83735; 84443; 84484; 85025; 85610; 85651; 85730; 87040; 87086; 87186; 87205; 87641; 93005; J0696; J7030; 92526; 92610; 92611; 97535; 99285-25; G0479